=== PATIENT | female | born 1975 | race American Indian/Alaskan Native ===

== ENCOUNTER 2016-04-21 04:52 | Emergency (ER) | payer MEDICARE | END 2016-04-21 05:15 | disposition left against medical advice (07) | LOC: ED 04:52 → EEVIPCON 04:52 → ED 05:15 | DX: D57.00 Hb-SS disease with crisis, unspecified (principal); Z53.21 Procedure and treatment not carried out due to patient leaving prior to being seen by health care provider ==

== ENCOUNTER 2016-07-12 00:43 | Emergency (ER) | payer MEDICARE ==
[2016-07-12] MEDS ORDERED: D5NS 0.2% 1,000 ML IV SCH (02:00)
[2016-07-12 07:09] LABS: Hematocrit 27.3 % (30.3-42.9); Hemoglobin 8.9 gm/dl (10.1-14.3); Mean Corpuscular HGB Conc 33 % (30-34); Mean Corpuscular Hemoglobin 26 pg (28-32); Mean Corpuscular Volume 80 fl (79-97); Platelet Count 392 K/mm3 (140-440); Red Cell Distribution Width 16.8 % (13.2-15.2); Reticulocyte % 2.29 % (0.78-2.58); White Blood Count 11.8 K/mm3 (4.5-11.0)
[2016-07-12] MEDS ORDERED: DILAUDID IV ONE ×3 (07:34→09:09)
[2016-07-12] MEDS ORDERED: BENADRYL PO ONE (07:34)
[2016-07-12] MEDS ORDERED: ZOFRAN IV ONE (07:34)
[2016-07-12] MEDS ORDERED: TORADOL IV ONE (07:34)
--- NOTE | 2016-07-12 07:36 | Emergency Department Report ---
ED General Adult HPI - General Chief complaint: Sickle Cell Crisis Stated complaint: SICKLE CELL PAIN Time Seen by Provider: 07/12/16 07:25 Source: patient Mode of arrival: Ambulatory Limitations: No Limitations - History of Present Illness Initial comments: This is a 41-year-old female. I have evaluated her in the past. She has a past medical history of hypertension and sickle cell disease. She presents to the ER with her typical sickle cell pain. The pain is sharp, located in the bilateral lower back region, and bilateral hips. No fevers or chills. No chest pain or shortness of breath. No irritative or obstructive urinary symptoms. Patient reports that she is on her menstruation, and reports that her menstruation occasionally inside her sickle cell crisis. Her pain typically improves with hydromorphone. Initially rates her pain as a "10". -: Gradual Location: back, left, right, lower extremity Quality: stabbing, aching Consistency: constant Improves with: medication Worsens with: movement Associated Symptoms: denies: confusion, chest pain, cough, diaphoresis, fever/ chills, headaches, loss of appetite, malaise, nausea/vomiting, shortness of breath, syncope, weakness - Related Data Home Medications Medication Instructions Recorded Confirmed Last Taken Metoprolol [Lopressor TAB] 100 mg PO BID 01/16/13 07/12/16 1 Day Ago Lisinopril [Zestril TAB] 10 mg PO QDAY 09/12/15 07/12/16 1 Day Ago Folic Acid [Folvite] 1 mg PO QDAY 10/28/15 07/12/16 1 Day Ago Oxycodone HCl/Acetaminophen 1 each PO Q6HR PRN 10/28/15 07/12/16 1 Day Ago [Percocet 10/325 mg] Previous Rx's Medication Instructions Recorded Last Taken Type Ketorolac [Toradol] 10 mg PO Q6H PRN #20 tablet 07/12/16 Unknown Rx Ondansetron [Zofran Odt] 4 mg PO QID PRN #20 tab.rapdis 07/12/16 Unknown Rx Vit W-Ca,Fe,FA(<1 mg) 1 each PO QDAY #30 tablet 07/12/16 Unknown Rx [ Vitamins] Allergies Allergy/AdvReac Type Severity Reaction Status Date / Time hydralazine [Hydralazine] Allergy Unknown Verified 07/12/16 07:34 hydroxyurea Allergy Unknown Verified 07/12/16 07:34 morphine Allergy Shortness Verified 07/12/16 07:34 of Breath nalbuphine HCl [From Nubain] Allergy Unknown Verified 07/12/16 07:34 ED Review of Systems ROS: Stated complaint: SICKLE CELL PAIN Other details as noted in HPI Constitutional: denies: fever, malaise Eyes: denies: vision change ENT: denies: epistaxis Respiratory: denies: cough Cardiovascular: denies: chest pain Gastrointestinal: denies: vomiting Genitourinary: denies: dysuria Musculoskeletal: back pain, arthralgia, myalgia Skin: denies: lesions Neurological: denies: weakness Psychiatric: denies: anxiety ED Past Medical Hx - Past Medical History Previous Medical History?: Yes Hx Hypertension: Yes Hx CVA: No Hx Heart Attack/AMI: No Hx Congestive Heart Failure: No Hx Diabetes: No Hx Deep Vein Thrombosis: Yes Hx Pulmonary Embolism: No Hx GERD: No Hx Liver Disease: No Hx Renal Disease: No Hx Sickle Cell Disease: Yes Hx Arthritis: No Hx Headaches / Migraines: No Hx Seizures: No Hx Kidney Stones: No Hx Psychiatric Treatment: No Hx Asthma: No Hx COPD: No Hx Tuberculosis: Yes Hx Dementia: No Hx HIV: No - Surgical History Past Surgical History?: Yes Hx Coronary Stent: No Hx Open Heart Surgery: No Hx Pacemaker: No Hx Internal Defibrillator: No Hx Cholecystectomy: Yes Hx Appendectomy: No Hx Breast Surgery: No Additional Surgical History: csection x1,. port R chest - Social History Smoking Status: Never Smoker Substance Use Type: None - Medications Home Medications: Home Medications Medication Instructions Recorded Confirmed Last Taken Type Metoprolol [Lopressor TAB] 100 mg PO BID 01/16/13 07/12/16 1 Day Ago History Lisinopril [Zestril TAB] 10 mg PO QDAY 09/12/15 07/12/16 1 Day Ago History Folic Acid [Folvite] 1 mg PO QDAY 10/28/15 07/12/16 1 Day Ago History Oxycodone HCl/Acetaminophen 1 each PO Q6HR PRN 10/28/15 07/12/16 1 Day Ago History [Percocet 10/325 mg] Ketorolac [Toradol] 10 mg PO Q6H PRN #20 tablet 07/12/16 Unknown Rx Ondansetron [Zofran Odt] 4 mg PO QID PRN #20 tab.rapdis 07/12/16 Unknown Rx Vit W-Ca,Fe,FA(<1 mg) 1 each PO QDAY #30 tablet 07/12/16 Unknown Rx [ Vitamins] ED Physical Exam - General Limitations: No Limitations General appearance: alert, in distress - Head Head exam: Present: atraumatic, normocephalic - Eye Eye exam: Present: normal appearance, EOMI. Absent: nystagmus - ENT ENT exam: Present: normal exam, normal orophraynx, mucous membranes moist, normal external ear exam - Neck Neck exam: Present: normal inspection, full ROM. Absent: tenderness, meningismus - Respiratory Respiratory exam: Present: normal lung sounds bilaterally. Absent: respiratory distress, wheezes, rales, rhonchi, stridor, decreased breath sounds - Cardiovascular Cardiovascular Exam: Present: regular rate, normal rhythm, normal heart sounds. Absent: bradycardia, tachycardia, irregular rhythm, systolic murmur, diastolic murmur, rubs, gallop - GI/Abdominal GI/Abdominal exam: Present: soft, normal bowel sounds. Absent: distended, tenderness, guarding, rebound, rigid, pulsatile mass - Extremities Exam Extremities exam: Present: normal inspection, tenderness (is reproducible bilateral hip tenderness. There is no redness, pus, streaking, crepitus fluctuance or discharge. Anterior tibial tenderness is noted. Compartments are soft.), normal capillary refill. Absent: pedal edema, joint swelling, calf tenderness - Back Exam Back exam: Present: normal inspection, other (there is a right-sided thoracic wall port noted, with no redness, pus, streaking.) - Neurological Exam Neurological exam: Present: alert, oriented X3, normal gait, other (Extraocular movements intact. Tongue midline. No facial droop. Facial sensation intact to light touch in the V1, V2, V3 distribution bilaterally. 5 and 5 strength in 4 extremities.. Sensation is intact to light touch in 4 extremities.). Absent : motor sensory deficit - Psychiatric Psychiatric exam: Present: normal affect, normal mood - Skin Skin exam: Present: warm, dry, intact, normal color. Absent: rash ED Course Vital Signs 07/12/16 07/12/16 07/12/16 01:06 07:50 07:56 Temperature 98.3 F Pulse Rate 74 73 73 Respiratory 19 16 Rate Blood Pressure 176/135 Blood Pressure 189/113 [Left] O2 Sat by Pulse 100 100 Oximetry 07/12/16 07/12/16 08:30 10:26 Temperature 98 F Pulse Rate 76 76 Respiratory 16 16 Rate Blood Pressure Blood Pressure 181/118 152/91 [Left] O2 Sat by Pulse 99 100 Oximetry - Reevaluation(s) Reevaluation #1: 07/12/16 10:00 Differential diagnosis: Sickle cell disease, sickle cell crisis Assessment and plan: 41-year-old female with typical sickle cell crisis. Has chronic hypertension. Her pain is treated aggressively with hydromorphone. She feels improved. Laboratory studies unremarkable, do not warrant necessity for admission at this time. 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 Elevated blood pressure is appreciated, this is chronic. The patient is instructed to follow-up with her outpatient primary care doctor for this. ED Medical Decision Making - Lab Data Result diagrams: 07/12/16 06:41 Vital Signs 07/12/16 07/12/16 07/12/16 01:06 07:50 07:56 Temperature 98.3 F Pulse Rate 74 73 73 Respiratory 19 16 Rate Blood Pressure 176/135 Blood Pressure 189/113 [Left] O2 Sat by Pulse 100 100 Oximetry 07/12/16 08:30 Temperature Pulse Rate 76 Respiratory 16 Rate Blood Pressure Blood Pressure 181/118 [Left] O2 Sat by Pulse 99 Oximetry Lab Results 07/12/16 Range/Units 06:41 WBC 11.8 H (4.5-11.0) K/mm3 RBC 3.40 L (3.65-5.03) M/mm3 Hgb 8.9 L (10.1-14.3) gm/dl Hct 27.3 L (30.3-42.9) % MCV 80 (79-97) fl MCH 26 L (28-32) pg MCHC 33 (30-34) % RDW 16.8 H (13.2-15.2) % Plt Count 392 (140-440) K/mm3 Add Manual Diff Complete Total Counted 100 Seg Neuts % (Manual) 69.0 (40.0-70.0) % Band Neutrophils % 1.0 % Lymphocytes % (Manual) 21.0 (13.4-35.0) % Reactive Lymphs % (Man) 0 % Monocytes % (Manual) 9.0 H (0.0-7.3) % Basophils % (Manual) 0 (0.0-1.8) % Metamyelocytes % 0 % Myelocytes % 0 % Promyelocytes % 0 % Blast Cells % 0 % Nucleated RBC % Not Reportable Seg Neutrophils # Man 8.1 H (1.8-7.7) K/mm3 Band Neutrophils # 0.1 K/mm3 Lymphocytes # (Manual) 2.5 (1.2-5.4) K/mm3 Abs React Lymphs (Man) 0.0 K/mm3 Monocytes # (Manual) 1.1 H (0.0-0.8) K/mm3 Eosinophils # (Manual) 0.0 (0.0-0.4) K/mm3 Basophils # (Manual) 0.0 (0.0-0.1) K/mm3 Metamyelocytes # 0.0 K/mm3 Myelocytes # 0.0 K/mm3 Promyelocytes # 0.0 K/mm3 Blast Cells # 0.0 K/mm3 WBC Morphology Not Reportable Hypersegmented Neuts Not Reportable Hyposegmented Neuts Not Reportable Hypogranular Neuts Not Reportable Smudge Cells Not Reportable Toxic Granulation Not Reportable Toxic Vacuolation Not Reportable Dohle Bodies Not Reportable Pelger-Huet Anomaly Not Reportable Pili Rods Not Reportable Platelet Estimate Appears normal Clumped Platelets Not Reportable Plt Clumps, EDTA Not Reportable Large Platelets Not Reportable Giant Platelets 1+ Platelet Satelliting Not Reportable Plt Morphology Comment Not Reportable RBC Morphology Not Reportable Dimorphic RBCs Not Reportable Polychromasia Not Reportable Hypochromasia 2+ Poikilocytosis 1+ Anisocytosis 1+ Microcytosis 1+ Macrocytosis Not Reportable Spherocytes Not Reportable Pappenheimer Bodies Not Reportable Sickle Cells Rare Target Cells 1+ Tear Drop Cells Not Reportable Ovalocytes Not Reportable Helmet Cells Not Reportable [place] Bodies Not Reportable [place] Rings Not Reportable [place] Cells Not Reportable Bite Cells Not Reportable Crenated Cell Not Reportable Elliptocytes Not Reportable Acanthocytes (Spur) Not Reportable Rouleaux Not Reportable Hemoglobin C Crystals Not Reportable Schistocytes Rare Malaria parasites Not Reportable Percent Retic 2.29 (0.78-2.58) % Aron Bodies Not Reportable Hem Pathologist Commnt No Critical care attestation.: If time is entered above; I have spent that time in minutes in the direct care of this critically ill patient, excluding procedure time. ED Disposition Clinical Impression: Sickle cell pain crisis, Hypertension Disposition: DISCHARGED TO HOME OR SELFCARE Is pt being admited?: No Does the pt Need Aspirin: No Condition: Good Instructions: Hypertension (ED) Additional Instructions: Take the pain medication, nausea medication as directed. Follow up with a primary care doctor within the next 7-10 days. Please note that blood pressure was elevated. This should be followed up by a primary care doctor within the recommended timeframe. Long-term complications of hypertension/elevated blood pressure include stroke, heart attack, disability, , paralysis, permanent loss of quality of life. Return to the ER right away with new pain, worsened pain, migration of pain, fevers or chills, intractable nausea or vomiting, inability to tolerate liquid feeds. Prescriptions: Ketorolac [Toradol] 10 mg PO Q6H PRN #20 tablet PRN Reason: Pain Ondansetron [Zofran Odt] 4 mg PO QID PRN #20 tab.rapdis PRN Reason: Nausea Vit W-Ca,Fe,FA(<1 mg) [ Vitamins] 1 each PO QDAY #30 tablet Referrals: PRIMARY MD MORIAH [Primary Care Provider] - 3-5 Days BECKY HANLEY MD [Staff Physician] - 3-5 Days
[2016-07-12 08:11] LABS: Basophils % (Manual) 0 % (0.0-1.8); Blastocytes % (Manual) 0 %
[2016-07-12 08:12] LABS: Anisocytosis 1+; Hypochromasia 2+; Schistocytes Rare; Sickle Cells Rare; Target Cells 1+
[2016-07-12 08:13] LABS: Microcytosis 1+; Poikilocytosis 1+
[2016-07-12 08:14] LABS: Giant Platelets 1+
[2016-07-12 08:15] LABS: Diff Status Complete
[2016-07-12] MEDS ORDERED: FLUSH HEPARIN IV ONE ×2 (10:12→10:17)
[2016-07-12 10:28] VITALS: BP 152/91
== END 2016-07-12 10:30 | disposition home or self-care (01) ==
LOC: ED 00:43
DX: D57.00 Hb-SS disease with crisis, unspecified (principal); I10 Essential (primary) hypertension; Z88.5 Allergy status to narcotic agent; Z88.8 Allergy status to other drugs, medicaments and biological substances; Z86.718 Personal history of other venous thrombosis and embolism
CPT/HCPCS: 36415; 85007; 85025; 85045; 96361; 96374; 96375; 96376; 99283; J1170; J1642; J1885; J2405

== ENCOUNTER 2016-08-03 07:03 | Emergency (ER) | payer MEDICARE ==
[2016-08-03] MEDS ORDERED: BENADRYL IV ONE ×2 (08:35→10:49)
[2016-08-03] MEDS ORDERED: ZOFRAN IV ONE (08:35)
[2016-08-03] MEDS ORDERED: SUBLIMAZE IV ONE ×2 (08:36→09:30)
[2016-08-03] MEDS ORDERED: D5NS 0.2% 1,000 ML IV SCH (09:00)
[2016-08-03] MEDS ORDERED: DILAUDID IV ONE ×2 (09:21→10:48)
[2016-08-03] MEDS ORDERED: FLUSH HEPARIN IV ONE (11:40)
[2016-08-03 11:56] VITALS: BP 165/92
--- NOTE | 2016-08-03 12:04 | Emergency Department Report ---
HPI - General Chief Complaint: Sickle Cell Crisis Time Seen by Provider: 08/03/16 08:37 - HPI HPI: The patient is a 41-year-old female presents for evaluation of recurrence of sickle cell pain. The patient reports constant low back pain since yesterday at noon, nearly 24 hours ago, 7/10 in severity, exacerbated with movement of the lower back, aching in quality. The patient states that her pain is consistent with previous sickle cell pain attacks. The patient denies blunt trauma to the back, fall, fever, chills, night sweats, saddle anesthesia, paresthesias, numbness or tingling in the legs, leg weakness, urine or bowel incontinence or retention, difficulty ambulating, or other focal neurological deficits. The patient also denies redness or swelling to the back, IV drug use, history of cancer. ED Past Medical Hx - Past Medical History Previous Medical History?: Yes Hx Hypertension: Yes Hx CVA: No Hx Heart Attack/AMI: No Hx Congestive Heart Failure: No Hx Diabetes: No Hx Deep Vein Thrombosis: Yes Hx Pulmonary Embolism: No Hx GERD: No Hx Liver Disease: No Hx Renal Disease: No Hx Sickle Cell Disease: Yes Hx Arthritis: No Hx Headaches / Migraines: No Hx Seizures: No Hx Kidney Stones: No Hx Psychiatric Treatment: No Hx Asthma: No Hx COPD: No Hx Tuberculosis: Yes Hx Dementia: No Hx HIV: No - Surgical History Past Surgical History?: Yes Hx Coronary Stent: No Hx Open Heart Surgery: No Hx Pacemaker: No Hx Internal Defibrillator: No Hx Cholecystectomy: Yes Hx Appendectomy: No Hx Breast Surgery: No Additional Surgical History: csection x1,. port R chest - Social History Smoking Status: Never Smoker Substance Use Type: Prescribed - Medications Home Medications: Home Medications Medication Instructions Recorded Confirmed Last Taken Type Metoprolol [Lopressor TAB] 100 mg PO BID 01/16/13 07/12/16 1 Day Ago History Lisinopril [Zestril TAB] 10 mg PO QDAY 09/12/15 07/12/16 1 Day Ago History Folic Acid [Folvite] 1 mg PO QDAY 10/28/15 07/12/16 1 Day Ago History Oxycodone HCl/Acetaminophen 1 each PO Q6HR PRN 10/28/15 07/12/16 1 Day Ago History [Percocet 10/325 mg] Ketorolac [Toradol] 10 mg PO Q6H PRN #20 tablet 07/12/16 Unknown Rx Ondansetron [Zofran Odt] 4 mg PO QID PRN #20 tab.rapdis 07/12/16 Unknown Rx Vit W-Ca,Fe,FA(<1 mg) 1 each PO QDAY #30 tablet 07/12/16 Unknown Rx [ Vitamins] ED Review of Systems ROS: Stated complaint: SICKLE CELL PAIN Other details as noted in HPI Constitutional: denies: fever ENT: denies: throat or neck pain Respiratory: denies: cough, shortness of breath Cardiovascular: denies: chest pain Endocrine: denies unexplained weight loss or gain Gastrointestinal: denies: abdominal pain, nausea Genitourinary: denies: dysuria Musculoskeletal: reports back pain denies: leg swelling Skin: denies: rash Neurological: denies: headache Hematological/Lymphatic: denies: easy bleeding or easy bruising Psych: denies sadness or hopelessness Physical Exam - Physical Exam Vital Signs: Vital Signs 08/03/16 08/03/16 08/03/16 07:10 10:00 10:30 Temperature 98.5 F Pulse Rate 83 85 Respiratory 20 16 Rate Blood Pressure 159/121 Blood Pressure 171/117 155/103 [Left] O2 Sat by Pulse 99 96 Oximetry Physical Exam: General: well-nourished, well-developed, no acute distress Head: Normocephalic, atraumatic Eyes: normal sclera ENT: Mucous membranes are pale and dry Neck: trachea midline, neck supple, No neck stiffness, no cervical adenopathy Respiratory: Breath sounds equal bilaterally, no wheezing, rales, or rhonchi Cardio: S1 and S2 present, no murmurs, rubs, gallops, capillary refill is delayed Abdomen: Normoactive bowel sounds, soft abdomen, no rigidity, no guarding or rebound tenderness Musc: Tenderness to palpation present to bilateral lumbar paraspinal musculature , no midline pain, pain is elicited with flexion at the hip, normal active range of motion at the hip intact, no spinous step-off or obvious deformity, ipsi-lateral and contralateral straight leg raise tests are negative. On extremity testing, compartments are soft and pliable, no obvious gross motor strength deficit, 5+ motor strength, including extension of the great toe bilaterally, no muscular atrophy, spasticity, fasciculations, or clonus, no obvious gross sensation deficit including web space between 1st and 2nd toes, reflexes 2+ & symmetric on DTR testing at the knee and ankle joints, distal pulses intact. Skin: No rash Neuro: no facial drooping, normal speech Psych: Normal affect ED Course Vital Signs 08/03/16 08/03/16 08/03/16 07:10 10:00 10:30 Temperature 98.5 F Pulse Rate 83 85 Respiratory 20 16 Rate Blood Pressure 159/121 Blood Pressure 171/117 155/103 [Left] O2 Sat by Pulse 99 96 Oximetry ED Medical Decision Making - Medical Decision Making The patient was seen and examined by myself. The patient is placed on a cardiac cath tech and continuous pulse ox. On initial evaluation, the patient was found to be in no distress. No findings on exam concerning for cauda equina syndrome, spinal stenosis, epidural abscess, or other emergent etiology of back pain. As the patient has no midline tenderness on exam, no neuro deficits, and no findings concerning for emergent etiology of their back pain, imaging will not be obtained at this time. IV access is established and the patient is given fluid resuscitation, Zofran, and multiple doses of IV fentanyl and dilaudid for their pain. Lab results reveal elevated reticulocyte count, and a stable hemoglobin level at patient baseline. Lab results otherwise are not concerning. The patient was reevaluated and reported that their pain was significantly improved. The patient is stable for discharge with outpatient follow-up. The patient is given follow-up and return instructions. The patient expressed understanding and agreed with the plan. The patient is discharged in stable condition. Critical care attestation.: If time is entered above; I have spent that time in minutes in the direct care of this critically ill patient, excluding procedure time. ED Disposition Clinical Impression: Sickle cell pain crisis, Dehydration, Acute bilateral low back pain without sciatica Disposition: DISCHARGED TO HOME OR SELFCARE Is pt being admited?: No Does the pt Need Aspirin: No Condition: Stable Instructions: Sickle Cell Crisis (ED) Referrals: PRIMARY CARE [Primary Care Provider] - 3-5 Days Time of Disposition: 11:47
== END 2016-08-03 11:56 | disposition home or self-care (01) ==
LOC: ED 07:03
DX: D57.00 Hb-SS disease with crisis, unspecified (principal); E86.0 Dehydration; M54.5 Low back pain; I10 Essential (primary) hypertension; A15.9 Respiratory tuberculosis unspecified; Z86.718 Personal history of other venous thrombosis and embolism; Z90.49 Acquired absence of other specified parts of digestive tract
CPT/HCPCS: 96361; 96374; 96375; 96376; 99283; J1170; J1200; J1642; J2405; J3010

== ENCOUNTER 2016-08-09 03:30 | Emergency (ER) | payer MEDICARE ==
[2016-08-09 03:40] VITALS: BP 161/118
[2016-08-09] MEDS ORDERED: D5NS 0.2% 1,000 ML IV SCH (04:00)
== END 2016-08-09 08:45 | disposition left against medical advice (07) ==
LOC: ED 03:30
DX: M54.9 Dorsalgia, unspecified (principal); M79.604 Pain in right leg; M79.605 Pain in left leg; Z53.21 Procedure and treatment not carried out due to patient leaving prior to being seen by health care provider

== ENCOUNTER 2016-08-30 09:54 | Emergency (ER) | payer MEDICARE ==
[2016-08-30] MEDS ORDERED: DILAUDID IV ONE ×3 (11:14→14:27)
[2016-08-30] MEDS ORDERED: ZOFRAN IV ONE (11:14)
[2016-08-30] MEDS ORDERED: BENADRYL IV ONE (11:15)
--- NOTE | 2016-08-30 11:20 | Emergency Department Report ---
HPI - General Chief Complaint: Sickle Cell Crisis Time Seen by Provider: 08/30/16 11:07 - HPI HPI: Room 17 The patient is a 41-year-old female presenting with a chief complaint of sickle cell pain crisis. The patient states yesterday she developed pain in both legs and her back consistent with a sickle cell pain. Patient states this morning she developed a burning pain in her right flank. Patient denies dysuria. Patient states she is currently on her cycle (normal time) so she is uncertain if she has developed hematuria. The patient gives her pain a score of 8/10 Location: [see above] Duration: [see above] Quality: Sickle cell pain, burning Severity: 8/10 Modifying factors: [see above] Context: [see above] Mode of transportation: [not driving] ED Past Medical Hx - Past Medical History Hx Hypertension: Yes Hx Deep Vein Thrombosis: Yes Hx Sickle Cell Disease: Yes Hx Tuberculosis: Yes - Surgical History Hx Cholecystectomy: Yes Additional Surgical History: csection x1,. port R chest - Family History Family history: no significant - Social History Smoking Status: Never Smoker Substance Use Type: Alcohol (occasional), Prescribed - Medications Home Medications: Home Medications Medication Instructions Recorded Confirmed Last Taken Type Metoprolol [Lopressor TAB] 100 mg PO BID 01/16/13 07/12/16 1 Day Ago History Lisinopril [Zestril TAB] 10 mg PO QDAY 09/12/15 07/12/16 1 Day Ago History Folic Acid [Folvite] 1 mg PO QDAY 10/28/15 07/12/16 1 Day Ago History Oxycodone HCl/Acetaminophen 1 each PO Q6HR PRN 10/28/15 07/12/16 1 Day Ago History [Percocet 10/325 mg] Ketorolac [Toradol] 10 mg PO Q6H PRN #20 tablet 07/12/16 Unknown Rx Ondansetron [Zofran Odt] 4 mg PO QID PRN #20 tab.rapdis 07/12/16 Unknown Rx Vit W-Ca,Fe,FA(<1 mg) 1 each PO QDAY #30 tablet 07/12/16 Unknown Rx [ Vitamins] HYDROcodone/APAP 5-325 [[place] 1 each PO Q6HR PRN #5 tablet 08/30/16 Unknown Rx 5/325] ED Review of Systems ROS: Stated complaint: SICKLE CELL PAIN Other details as noted in HPI Comment: All other systems reviewed and negative Constitutional: denies: chills, fever Eyes: denies: eye pain, eye discharge, vision change ENT: denies: ear pain, throat pain Respiratory: denies: cough, shortness of breath, wheezing Cardiovascular: denies: chest pain, palpitations Endocrine: no symptoms reported Gastrointestinal: denies: abdominal pain, nausea, diarrhea Genitourinary: denies: urgency, dysuria, discharge Musculoskeletal: back pain Skin: denies: rash, lesions Neurological: denies: headache, weakness, paresthesias Psychiatric: denies: anxiety, depression Hematological/Lymphatic: other (sickle cell pain crisis) Physical Exam - Physical Exam Vital Signs: Vital Signs 08/30/16 10:17 Temperature 98.3 F Pulse Rate 68 Respiratory 17 Rate Blood Pressure 155/92 O2 Sat by Pulse 100 Oximetry Physical Exam: GENERAL: The patient is well-developed well-nourished female sitting on stretcher not appearing to be in acute distress. [] HEENT: Normocephalic. Atraumatic. Extraocular motions are intact. Patient has moist mucous membranes. NECK: Supple. Trachea midline CHEST/LUNGS: Clear to auscultation. There is no respiratory distress noted. HEART/CARDIOVASCULAR: Regular. There is no tachycardia. There is no gallop rub or murmur. ABDOMEN: Abdomen is soft, nontender. Patient has normal bowel sounds. There is no abdominal distention. SKIN: There is no rash. There is no edema. There is no diaphoresis. NEURO: The patient is awake, alert, and oriented. The patient is cooperative. The patient has normal speech MUSCULOSKELETAL: There is no evidence of acute injury. ED Course Vital Signs 08/30/16 10:17 Temperature 98.3 F Pulse Rate 68 Respiratory 17 Rate Blood Pressure 155/92 O2 Sat by Pulse 100 Oximetry ED Medical Decision Making - Lab Data Result diagrams: 08/30/16 12:05 Laboratory Tests 08/30/16 08/30/16 12:05 12:58 WBC 8.3 RBC 3.79 Hgb 8.9 L Hct 27.6 L MCV 73 L MCH 24 L MCHC 32 RDW 18.9 H Plt Count 403 Lymph % (Auto) 35.9 H [place] % (Auto) 6.2 Eos % (Auto) 3.8 Baso % (Auto) 0.9 Lymph # 3.0 [place] # 0.5 Eos # 0.3 Baso # 0.1 Seg Neutrophils % 53.2 Seg Neutrophils # 4.4 Percent Retic 2.11 Urine Color Straw Urine Turbidity Clear Urine pH 7.0 Ur Specific [place] 1.010 Urine Protein <15 mg/dl Urine Glucose (UA) Neg Urine Ketones Neg Urine Blood Neg Urine Nitrite Neg Ur Reducing Substances Not Reportable Urine Bilirubin Neg Urine Ictotest Not Reportable Urine Urobilinogen < 2.0 Ur Leukocyte Esterase Neg Urine WBC (Auto) 1.0 Urine RBC (Auto) 1.0 U Epithel Cells (Auto) 2.0 Urine HCG, Qual Negative - Radiology Data Radiology results: report reviewed (CT abdomen and pelvis), image reviewed (CT abdomen and pelvis) CT abdomen and pelvis (read by radiologist)-possible right ovary with ovarian cysts. Probable left renal cyst cortical cyst. - Differential Diagnosis sickle cell pain crisis, zoster, pyelonephritis, Critical care attestation.: If time is entered above; I have spent that time in minutes in the direct care of this critically ill patient, excluding procedure time. ED Disposition Clinical Impression: Sickle cell pain crisis, Right flank pain Disposition: DISCHARGED TO HOME OR SELFCARE Is pt being admited?: No Does the pt Need Aspirin: No Condition: Stable Instructions: Sickle Cell Crisis (ED) Additional Instructions: Return to the emergency department immediately should you develop worsening symptoms, fever, inability to tolerate food or liquid or any other concerns. Prescriptions: HYDROcodone/APAP 5-325 [[place] 5/325] 1 each PO Q6HR PRN #5 tablet PRN Reason: Pain Referrals: PRIMARY CARE, [Primary Care Provider] - 3-5 Days Time of Disposition: 14:29
[2016-08-30 12:11] LABS: Basophils % (Auto) 0.9 % (0.0-1.8); Eosinophils % (Auto) 3.8 % (0.0-4.3); Hematocrit 27.6 % (30.3-42.9); Hemoglobin 8.9 gm/dl (10.1-14.3); Mean Corpuscular HGB Conc 32 % (30-34); Mean Corpuscular Volume 73 fl (79-97); Platelet Count 403 K/mm3 (140-440); Red Blood Count 3.79 M/mm3 (3.65-5.03); Red Cell Distribution Width 18.9 % (13.2-15.2); Reticulocyte % 2.11 % (0.78-2.58); White Blood Count 8.3 K/mm3 (4.5-11.0)
[2016-08-30 12:31] LABS: Mean Corpuscular Hemoglobin 24 pg (28-32)
[2016-08-30 13:10] LABS: Bilirubin,Urine NEG (Negative); Blood,Urine NEG (Negative); Ketones,Urine NEG (Negative); Leukocyte Esterase,Urine NEG (Negative); Nitrite,Urine NEG (Negative); Protein,Urine <15 mg/dL mg/dL (Negative); Urobilinogen,Urine < 2.0 mg/dL (<2.0)
[2016-08-30] MEDS ORDERED: FLUSH HEPARIN IV ONE (14:23)
--- NOTE | 2016-08-30 14:23 | Cat Scan Report ---
FINAL REPORT EXAM: CT ABDOMEN PELVIS WO CON HISTORY: right flank pain TECHNIQUE: CT of the abdomen and pelvis without IV contrast. Coronal and sagittal reconstructed imaging provided. PRIORS: None currently available. FINDINGS: ABDOMEN: Mild linear scarring or discoid subsegmental atelectasis in both lung bases. Prior cholecystectomy. Low-attenuation lesion in the cortex of the mid to inferior left kidney measures 1.4 cm. Kidneys do not demonstrate any hydronephrosis. No nephroureteral stones. Irregular contoured spleen with areas of calcification may be related to prior trauma or infection. No distinct lesions noted. Stomach, pancreas, and adrenals are unremarkable. IVC is intact. No abdominal aortic aneurysm. No periaortic or retroperitoneal mass or adenopathy. [id number] stool is present within the colon. No wall thickening or inflammatory changes. Appendix is not clearly visualized. There are no pericecal inflammatory changes. Terminal ilium is unremarkable. Small bowel loops are unremarkable. No obstructive pattern. No free air or free fluid. Fat containing umbilical hernia without strangulation. PELVIS: Bladder is unremarkable. Oval low-attenuation lesion in the right pelvis on series 3:126 measures 2.1 x 1.3 cm and may represent a right ovary with ovarian cyst. Surgical clips also noted in the right pelvis. There is no pelvic mass or adenopathy. Inguinal regions are unremarkable. Bones: No suspicious osseous lesions on this limited examination of the skeleton. Metastatic disease better evaluated with bone scan. Degenerative changes are in the spine. IMPRESSION: Possible right ovary with ovarian cysts. Correlation with pelvic ultrasound may be helpful if clinically indicated. Probable left renal cysts cortical cyst. Irregular contour and calcifications of the spleen may be related to chronic trauma or prior infection.
[2016-08-30 15:22] VITALS: BP 145/71
== END 2016-08-30 15:15 | disposition home or self-care (01) ==
LOC: ED 09:54
DX: D57.00 Hb-SS disease with crisis, unspecified (principal); R10.9 Unspecified abdominal pain; I10 Essential (primary) hypertension; I82.409 Acute embolism and thrombosis of unspecified deep veins of unspecified lower extremity; Z86.11 Personal history of tuberculosis; Z88.8 Allergy status to other drugs, medicaments and biological substances
CPT/HCPCS: 36415; 74176; 81001; 81025; 85025; 85045; 96374; 96375; 96376; 99284; J1170; J1200; J1642; J2405

== ENCOUNTER 2016-10-03 21:34 | Emergency (ER) | payer MEDICARE ==
[2016-10-03] MEDS ORDERED: D5NS 0.2% 1,000 ML IV SCH (22:00)
[2016-10-03] MEDS ORDERED: DILAUDID IM ONE (23:10)
[2016-10-03] MEDS ORDERED: ZOFRAN ODT PO ONE (23:10)
[2016-10-03] MEDS ORDERED: BENADRYL PO ONE (23:30)
[2016-10-04] MEDS ORDERED: DILAUDID IM ONE (01:05)
--- NOTE | 2016-10-04 01:12 | Emergency Department Report ---
ED General Adult HPI - General Chief complaint: Sickle Cell Crisis Stated complaint: SICKLE CELL PAIN Time Seen by Provider: 10/03/16 23:09 Source: patient Mode of arrival: Ambulatory Limitations: No Limitations - History of Present Illness Initial comments: 41-year-old female with past medical history of sickle cell presenting to the emergency department complaining of sickle cell crisis. Patient states her pain is in bilateral upper extremity joints near her shoulders. Patient denies fevers/chills, headache, chest pain, shortness of breath, cough, vomiting, nausea/vomiting/diarrhea. She states today's pain is consistent with previous sickle cell crises. Severity scale (0 -10): 8 - Related Data Home Medications Medication Instructions Recorded Confirmed Last Taken RX: Metoprolol [Lopressor TAB] 100 mg PO BID 01/16/13 07/12/16 1 Day Ago Lisinopril [Zestril TAB] 10 mg PO QDAY 09/12/15 07/12/16 1 Day Ago Oxycodone HCl/Acetaminophen 1 each PO Q6HR PRN 10/28/15 07/12/16 1 Day Ago [Percocet 10/325 mg] RX: Folic Acid [Folvite] 1 mg PO QDAY 10/28/15 07/12/16 1 Day Ago Previous Rx's Medication Instructions Recorded Last Taken Type Ketorolac [Toradol] 10 mg PO Q6H PRN #20 tablet 07/12/16 Unknown Rx Ondansetron [Zofran Odt] 4 mg PO QID PRN #20 tab.rapdis 07/12/16 Unknown Rx Vit W-Ca,Fe,FA(<1 mg) 1 each PO QDAY #30 tablet 07/12/16 Unknown Rx [ Vitamins] HYDROcodone/APAP 5-325 [[place] 1 each PO Q6HR PRN #5 tablet 08/30/16 Unknown Rx 5/325] Allergies Allergy/AdvReac Type Severity Reaction Status Date / Time hydralazine [Hydralazine] Allergy Unknown Verified 08/30/16 10:15 hydroxyurea Allergy Unknown Verified 08/30/16 10:15 morphine Allergy Shortness Verified 08/30/16 10:15 of Breath nalbuphine HCl [From Nubain] Allergy Unknown Verified 08/30/16 10:15 sulfamethoxazole Allergy Unknown Verified 10/03/16 21:44 [From Bactrim] trimethoprim [From Bactrim] Allergy Unknown Verified 10/03/16 21:44 ED Review of Systems ROS: Stated complaint: SICKLE CELL PAIN Other details as noted in HPI Constitutional: denies: chills, fever Eyes: denies: eye pain, eye discharge, vision change ENT: denies: ear pain, throat pain Respiratory: denies: cough, shortness of breath, wheezing Cardiovascular: denies: chest pain, palpitations Endocrine: no symptoms reported Gastrointestinal: denies: abdominal pain, nausea, diarrhea Genitourinary: denies: urgency, dysuria, discharge Musculoskeletal: denies: back pain, joint swelling, arthralgia Skin: denies: rash, lesions Neurological: denies: headache, weakness, paresthesias Psychiatric: denies: anxiety, depression Hematological/Lymphatic: denies: easy bleeding, easy bruising ED Past Medical Hx - Past Medical History Hx Hypertension: Yes Hx Deep Vein Thrombosis: Yes Hx Sickle Cell Disease: Yes Hx Tuberculosis: Yes - Surgical History Hx Cholecystectomy: Yes Additional Surgical History: csection x1,. port R chest - Social History Smoking Status: Never Smoker Substance Use Type: None - Medications Home Medications: Home Medications Medication Instructions Recorded Confirmed Last Taken Type RX: Metoprolol [Lopressor TAB] 100 mg PO BID 01/16/13 07/12/16 1 Day Ago History Lisinopril [Zestril TAB] 10 mg PO QDAY 09/12/15 07/12/16 1 Day Ago History Oxycodone HCl/Acetaminophen 1 each PO Q6HR PRN 10/28/15 07/12/16 1 Day Ago History [Percocet 10/325 mg] RX: Folic Acid [Folvite] 1 mg PO QDAY 10/28/15 07/12/16 1 Day Ago History Ketorolac [Toradol] 10 mg PO Q6H PRN #20 tablet 07/12/16 Unknown Rx Ondansetron [Zofran Odt] 4 mg PO QID PRN #20 tab.rapdis 07/12/16 Unknown Rx Vit W-Ca,Fe,FA(<1 mg) 1 each PO QDAY #30 tablet 07/12/16 Unknown Rx [ Vitamins] HYDROcodone/APAP 5-325 [[place] 1 each PO Q6HR PRN #5 tablet 08/30/16 Unknown Rx 5/325] ED Physical Exam - General Limitations: No Limitations General appearance: alert, in no apparent distress - Head Head exam: Present: atraumatic, normocephalic - Eye Eye exam: Present: normal appearance - ENT ENT exam: Present: mucous membranes moist - Neck Neck exam: Present: normal inspection - Respiratory Respiratory exam: Present: normal lung sounds bilaterally. Absent: respiratory distress - Cardiovascular Cardiovascular Exam: Present: regular rate, normal rhythm. Absent: systolic murmur, diastolic murmur, rubs, gallop - GI/Abdominal GI/Abdominal exam: Present: soft, normal bowel sounds - Extremities Exam Extremities exam: Present: normal inspection, full ROM, normal capillary refill. Absent: tenderness, pedal edema, joint swelling, calf tenderness (2+ radial pulses BL, normal cap refill ) - Back Exam Back exam: Present: normal inspection - Neurological Exam Neurological exam: Present: alert, oriented X3 - Psychiatric Psychiatric exam: Present: normal affect, normal mood - Skin Skin exam: Present: warm, dry, intact, normal color. Absent: rash ED Course Vital Signs 10/03/16 10/03/16 10/03/16 21:37 23:06 23:10 Temperature 98.4 F Pulse Rate 78 Respiratory 18 Rate Blood Pressure 183/115 166/100 Blood Pressure [Left] O2 Sat by Pulse 100 100 100 Oximetry 10/03/16 10/03/16 10/03/16 23:28 23:30 23:58 Temperature 98.7 F Pulse Rate 65 Respiratory 20 20 18 Rate Blood Pressure 187/103 Blood Pressure 166/100 [Left] O2 Sat by Pulse 100 Oximetry 10/04/16 10/04/16 10/04/16 00:00 00:20 00:40 Temperature Pulse Rate Respiratory Rate Blood Pressure 176/105 170/90 170/90 Blood Pressure [Left] O2 Sat by Pulse 94 95 Oximetry 10/04/16 10/04/16 10/04/16 00:51 01:04 01:20 Temperature Pulse Rate Respiratory 18 Rate Blood Pressure 170/90 170/90 Blood Pressure [Left] O2 Sat by Pulse 90 Oximetry 10/04/16 01:38 Temperature Pulse Rate Respiratory 20 Rate Blood Pressure Blood Pressure [Left] O2 Sat by Pulse Oximetry - Reevaluation(s) Reevaluation #1: 10/04/16 01:13 Patient states her pain is improved the nurse attempting to assess report however patient is refusing stating she wants to withhold lab draw for today discharge home now and follow-up with her national service officer. ED Medical Decision Making - Medical Decision Making 41-year-old female with past medical history sickle cell presented to the emergency department with sickle cell crisis. She is currently refusing blood draws requesting discharge home after 2 doses of Dilaudid. Given that her vitals are stable and she does not appear to be in acute distress, I will discharge patient now. Patient verbalized understanding of return precautions. I have low suspicion for: Acute chest, ACS, DVT. Critical Care Time: No Critical care attestation.: If time is entered above; I have spent that time in minutes in the direct care of this critically ill patient, excluding procedure time. ED Disposition Clinical Impression: Sickle cell pain crisis Disposition: DC-01 TO HOME OR SELFCARE Is pt being admited?: No Does the pt Need Aspirin: No Condition: Stable Instructions: Sickle Cell Crisis (ED) Referrals: PRIMARY CARE [Primary Care Provider] - 3-5 Days Time of Disposition: 01:15
[2016-10-04 01:36] VITALS: BP 170/90
== END 2016-10-04 01:38 | disposition home or self-care (01) ==
LOC: ED 21:34
DX: D57.00 Hb-SS disease with crisis, unspecified (principal); I10 Essential (primary) hypertension; Z86.718 Personal history of other venous thrombosis and embolism; Z88.8 Allergy status to other drugs, medicaments and biological substances; Z88.5 Allergy status to narcotic agent; Z88.2 Allergy status to sulfonamides
CPT/HCPCS: 96372; 99283; J1170; Q0162

== ENCOUNTER 2016-10-11 15:41 | Emergency (ER) | payer MEDICARE ==
[2016-10-11] MEDS ORDERED: D5NS 0.2% 1,000 ML IV SCH (17:00)
[2016-10-11] MEDS ORDERED: TORADOL IM ONE (17:36)
[2016-10-11] MEDS ORDERED: DILAUDID IM ONE (17:36)
--- NOTE | 2016-10-11 17:39 | Emergency Department Report ---
ED Extremity Problem HPI - General Chief complaint: Sickle Cell Crisis Stated complaint: SICKLE CELL PAIN Time Seen by Provider: 10/11/16 17:12 Source: patient Mode of arrival: Ambulatory Limitations: No Limitations - History of Present Illness Initial comments: 41-year-old female well-known to me here with complaint of sickle cell pain crisis. She complains of pain in her lower back and bilateral legs. Denies fevers chills or chest pain. Describes the pain as achy. States she is taking her 10 mg of Percocet a day without relief. MD Complaint: extremity pain Location: bilateral lower extremity -: Yes myalgia, Yes arthralgia, No fever, No associated dyspnea, No associated chest pain Associated Symptoms: denies other symptoms - Related Data Home Medications Medication Instructions Recorded Confirmed Last Taken Metoprolol [Lopressor TAB] 100 mg PO BID 01/16/13 10/11/16 10/11/16 Lisinopril [Zestril TAB] 10 mg PO QDAY 09/12/15 10/11/16 10/11/16 Folic Acid [Folvite] 1 mg PO QDAY 10/28/15 10/11/16 10/11/16 Previous Rx's Medication Instructions Recorded Last Taken Type Ketorolac [Toradol] 10 mg PO Q6H PRN #20 tablet 07/12/16 10/11/16 Rx Ondansetron [Zofran Odt] 4 mg PO QID PRN #20 tab.rapdis 07/12/16 10/11/16 Rx Vit W-Ca,Fe,FA(<1 mg) 1 each PO QDAY #30 tablet 07/12/16 10/11/16 Rx [ Vitamins] HYDROcodone/APAP 5-325 [[place] 1 each PO Q6HR PRN #5 tablet 08/30/16 10/11/16 Rx 5/325] Oxycodone HCl/Acetaminophen 1 each PO Q6HR PRN #10 tablet 10/11/16 Unknown Rx [Percocet 10/325 mg] Allergies Allergy/AdvReac Type Severity Reaction Status Date / Time hydralazine [Hydralazine] Allergy Unknown Verified 10/11/16 19:18 hydroxyurea Allergy Unknown Verified 10/11/16 19:18 morphine Allergy Shortness Verified 10/11/16 19:18 of Breath nalbuphine HCl [From Nubain] Allergy Unknown Verified 10/11/16 19:18 sulfamethoxazole Allergy Unknown Verified 10/11/16 19:18 [From Bactrim] trimethoprim [From Bactrim] Allergy Unknown Verified 10/11/16 19:18 ED Review of Systems ROS: Stated complaint: SICKLE CELL PAIN Other details as noted in HPI Comment: All other systems reviewed and negative Constitutional: denies: chills, fever Cardiovascular: denies: chest pain ED Past Medical Hx - Past Medical History Previous Medical History?: Yes Hx Hypertension: Yes Hx Deep Vein Thrombosis: Yes Hx Sickle Cell Disease: Yes Hx Tuberculosis: Yes - Surgical History Past Surgical History?: Yes Hx Cholecystectomy: Yes Additional Surgical History: csection x1,. port R chest - Social History Smoking Status: Never Smoker Substance Use Type: Alcohol, Marijuana, Prescribed - Medications Home Medications: Home Medications Medication Instructions Recorded Confirmed Last Taken Type Metoprolol [Lopressor TAB] 100 mg PO BID 01/16/13 10/11/16 10/11/16 History Lisinopril [Zestril TAB] 10 mg PO QDAY 09/12/15 10/11/16 10/11/16 History Folic Acid [Folvite] 1 mg PO QDAY 10/28/15 10/11/16 10/11/16 History Ketorolac [Toradol] 10 mg PO Q6H PRN #20 tablet 07/12/16 10/11/16 10/11/16 Rx Ondansetron [Zofran Odt] 4 mg PO QID PRN #20 tab.rapdis 07/12/16 10/11/16 Rx Vit W-Ca,Fe,FA(<1 mg) 1 each PO QDAY #30 tablet 07/12/16 10/11/1610/11 Rx [ Vitamins] HYDROcodone/APAP 5-325 [[place] 1 each PO Q6HR PRN #5 tablet 08/30/16 10/11/1611/20 Rx 5/325] Oxycodone HCl/Acetaminophen 1 each PO Q6HR PRN #10 tablet 10/11/16 Unknown Rx [Percocet 10/325 mg] ED Physical Exam - General Limitations: No Limitations General appearance: alert, in no apparent distress - Head Head exam: Present: atraumatic, normocephalic - Eye Eye exam: Present: normal appearance - ENT ENT exam: Present: mucous membranes moist - Neck Neck exam: Present: normal inspection - Respiratory Respiratory exam: Present: normal lung sounds bilaterally. Absent: respiratory distress - Cardiovascular Cardiovascular Exam: Present: regular rate, normal rhythm, other (vascular port and right upper chest). Absent: systolic murmur, diastolic murmur, rubs, gallop - GI/Abdominal GI/Abdominal exam: Present: soft, normal bowel sounds - Extremities Exam Extremities exam: Present: normal inspection - Back Exam Back exam: Present: normal inspection - Neurological Exam Neurological exam: Present: alert, oriented X3 - Psychiatric Psychiatric exam: Present: normal affect, normal mood - Skin Skin exam: Present: warm, dry, intact, normal color. Absent: rash ED Course Vital Signs 10/11/16 10/11/16 10/11/16 15:58 19:33 19:34 Temperature 99.1 F Pulse Rate 85 83 Respiratory 16 20 20 Rate Blood Pressure 158/102 Blood Pressure 160/99 [Right] O2 Sat by Pulse 99 100 Oximetry ED Medical Decision Making - Lab Data Result diagrams: 10/11/16 Unknown Abnormal Lab Results 10/11/16 Unknown WBC TNR RBC TNR Hgb TNR Hct TNR MCV TNR MCH TNR MCHC TNR RDW TNR Plt Count TNR Lymph % (Auto) TNR [place] % (Auto) TNR Eos % (Auto) TNR Baso % (Auto) TNR Lymph # TNR [place] # TNR Eos # TNR Baso # TNR Add Manual Diff TNR Seg Neutrophils % TNR Seg Neutrophils # TNR Percent Retic TNR Immature Retic Fraction TNR Laboratory Results - last 24 hr 10/11/16 Unknown WBC TNR RBC TNR Hgb TNR Hct TNR MCV TNR MCH TNR MCHC TNR RDW TNR Plt Count TNR Lymph % (Auto) TNR [place] % (Auto) TNR Eos % (Auto) TNR Baso % (Auto) TNR Lymph # TNR [place] # TNR Eos # TNR Baso # TNR Add Manual Diff TNR Seg Neutrophils % TNR Seg Neutrophils # TNR Percent Retic TNR Immature Retic Fraction TNR - Medical Decision Making 41-year-old female with sickle cell disease well known to me. Plan to check labs treat with single doses of IM narcotics as the patient is requesting not to have her port accessed. No fevers chills. I do not suspect an infection or acute chest. Patient with slight improvement after 2 rounds of pain medication. Lab results have not returned the patient is requesting to leave. Given that I do not suspect she has an infection and I know her well and I will discharge her. Portions of this chart were dictated with dictation software. There may be dictation errors contained within this note. Critical care attestation.: If time is entered above; I have spent that time in minutes in the direct care of this critically ill patient, excluding procedure time. ED Disposition Clinical Impression: Sickle cell pain crisis Disposition: DC-01 TO HOME OR SELFCARE Is pt being admited?: No Condition: Stable Instructions: Sickle Cell Crisis (ED) Prescriptions: Oxycodone HCl/Acetaminophen [Percocet 10/325 mg] 1 each PO Q6HR PRN #10 tablet PRN Reason: Pain Referrals: PRIMARY CARE, [Primary Care Provider] - 3-5 Days
[2016-10-11] MEDS ORDERED: BENADRYL PO ONE (18:10)
[2016-10-11 18:34] LABS: Hematocrit TNR % (30.3-42.9); Hemoglobin TNR gm/dl (10.1-14.3); Mean Corpuscular HGB Conc TNR % (30-34); Mean Corpuscular Hemoglobin TNR pg (28-32); Mean Corpuscular Volume TNR fl (79-97); Mean Platelet Volume TNR fl (6-12); Platelet Count TNR K/mm3 (140-440); Red Blood Count TNR M/mm3 (3.65-5.03); Red Cell Distribution Width TNR % (13.2-15.2); White Blood Count TNR K/mm3 (4.5-11.0)
[2016-10-11 18:35] LABS: Basophils % (Auto) TNR % (0.0-1.8); Eosinophils % (Auto) TNR % (0.0-4.3)
[2016-10-11 18:36] LABS: Diff Status TNR; Immature Retic Fraction TNR; Reticulocyte % TNR % (0.78-2.58)
[2016-10-11] MEDS ORDERED: DILAUDID IV ONE (19:48)
[2016-10-11] MEDS ORDERED: FLUSH HEPARIN IV ONE (20:53)
[2016-10-11 21:01] VITALS: BP 159/80
== END 2016-10-11 21:02 | disposition home or self-care (01) ==
LOC: ED 15:41
DX: D57.00 Hb-SS disease with crisis, unspecified (principal); I10 Essential (primary) hypertension; I82.409 Acute embolism and thrombosis of unspecified deep veins of unspecified lower extremity; Z86.11 Personal history of tuberculosis; F12.10 Cannabis abuse, uncomplicated; Z88.2 Allergy status to sulfonamides; Z88.8 Allergy status to other drugs, medicaments and biological substances
CPT/HCPCS: 36415; 85025; 85045; 96361; 96372; 96374; 99283; J1170; J1642; J1885

== ENCOUNTER 2016-11-27 02:48 | Emergency (ER) | payer MEDICARE ==
[2016-11-27 03:00] VITALS: BP 144/95
[2016-11-27] MEDS ORDERED: D5NS 0.2% 1,000 ML IV SCH (05:00)
== END 2016-11-27 04:20 | disposition left against medical advice (07) ==
LOC: ED 02:48
DX: D57.1 Sickle-cell disease without crisis (principal); Z53.21 Procedure and treatment not carried out due to patient leaving prior to being seen by health care provider

== ENCOUNTER 2016-12-07 13:51 | Emergency (ER) | payer MEDICARE ==
[2016-12-07] MEDS ORDERED: D5NS 0.2% 1,000 ML IV SCH (15:00)
[2016-12-07] MEDS ORDERED: DILAUDID IV ONE ×2 (19:58→21:05)
[2016-12-07] MEDS ORDERED: BENADRYL IV ONE (21:05)
[2016-12-07] MEDS ORDERED: FLUSH HEPARIN IV ONE (21:05)
[2016-12-07 21:22] LABS: Hematocrit 24.8 % (30.3-42.9); Hemoglobin 7.7 gm/dl (10.1-14.3); Mean Corpuscular HGB Conc 31 % (30-34); Platelet Count 341 K/mm3 (140-440); Red Blood Count 3.98 M/mm3 (3.65-5.03); Reticulocyte % 1.96 % (0.78-2.58); White Blood Count 6.8 K/mm3 (4.5-11.0)
[2016-12-07 21:24] LABS: Mean Corpuscular Hemoglobin 20 pg (28-32); Mean Corpuscular Volume 62 fl (79-97); Red Cell Distribution Width 20.4 % (13.2-15.2)
[2016-12-07] MEDS ORDERED: DILAUDID IM ONE (21:28)
--- NOTE | 2016-12-07 21:51 | Emergency Department Report ---
ED General Adult HPI - General Chief complaint: Sickle Cell Crisis Stated complaint: SICKLE CELL PAIN Time Seen by Provider: 12/07/16 19:57 Source: patient Mode of arrival: Ambulatory Limitations: No Limitations - History of Present Illness Initial comments: She is a 41-year-old female past medical history of sickle cell anemia who presents with sickle cell pain. Patient states that her sickle cell pain is typical for her sickle cell. She states that the pain is in her hips and back. It has been going on for 1 day. It is a 10 out of 10 analgesic pain medicines make it better nothing makes it worse. She states that the pain radiates throughout her body. She has no shortness of breath or any fever. Patient denies having any chest pain. Severity scale (0 -10): 8 - Related Data Home Medications Medication Instructions Recorded Confirmed Last Taken Metoprolol [Lopressor TAB] 100 mg PO BID 01/16/13 10/11/16 10/11/16 Lisinopril [Zestril TAB] 10 mg PO QDAY 09/12/15 10/11/16 10/11/16 Folic Acid [Folvite] 1 mg PO QDAY 10/28/15 10/11/16 10/11/16 Previous Rx's Medication Instructions Recorded Last Taken Type Ketorolac [Toradol] 10 mg PO Q6H PRN #20 tablet 07/12/16 10/11/16 Rx Ondansetron [Zofran Odt] 4 mg PO QID PRN #20 tab.rapdis 07/12/16 10/11/16 Rx Vit W-Ca,Fe,FA(<1 mg) 1 each PO QDAY #30 tablet 07/12/16 10/11/16 Rx [ Vitamins] HYDROcodone/APAP 5-325 [[place] 1 each PO Q6HR PRN #5 tablet 08/30/16 10/11/16 Rx 5/325] Oxycodone HCl/Acetaminophen 1 each PO Q6HR PRN #10 tablet 10/11/16 Unknown Rx [Percocet 10/325 mg] Allergies Allergy/AdvReac Type Severity Reaction Status Date / Time hydralazine [Hydralazine] Allergy Unknown Verified 10/11/16 19:18 hydroxyurea Allergy Unknown Verified 10/11/16 19:18 morphine Allergy Shortness Verified 10/11/16 19:18 of Breath nalbuphine HCl [From Nubain] Allergy Unknown Verified 10/11/16 19:18 sulfamethoxazole Allergy Unknown Verified 10/11/16 19:18 [From Bactrim] trimethoprim [From Bactrim] Allergy Unknown Verified 10/11/16 19:18 ED Review of Systems ROS: Stated complaint: SICKLE CELL PAIN Other details as noted in HPI Constitutional: denies: chills, fever Eyes: denies: eye pain, eye discharge, vision change ENT: denies: ear pain, throat pain Respiratory: denies: cough, shortness of breath, wheezing Cardiovascular: denies: chest pain, palpitations Endocrine: no symptoms reported Gastrointestinal: denies: abdominal pain, nausea, diarrhea Genitourinary: denies: urgency, dysuria, discharge Musculoskeletal: as per HPI, myalgia. denies: back pain, joint swelling, arthralgia Skin: denies: rash, lesions Neurological: denies: headache, weakness, paresthesias Psychiatric: denies: anxiety, depression Hematological/Lymphatic: denies: easy bleeding, easy bruising ED Past Medical Hx - Past Medical History Previous Medical History?: Yes Hx Hypertension: Yes Hx Deep Vein Thrombosis: Yes Hx Sickle Cell Disease: Yes Hx Tuberculosis: Yes - Surgical History Past Surgical History?: Yes Hx Cholecystectomy: Yes Additional Surgical History: csection x1,. port R chest - Social History Smoking Status: Never Smoker Substance Use Type: Alcohol - Medications Home Medications: Home Medications Medication Instructions Recorded Confirmed Last Taken Type Metoprolol [Lopressor TAB] 100 mg PO BID 01/16/13 10/11/16 10/11/16 History Lisinopril [Zestril TAB] 10 mg PO QDAY 09/12/15 10/11/16 10/11/16 History Folic Acid [Folvite] 1 mg PO QDAY 10/28/15 10/11/16 10/11/16 History Ketorolac [Toradol] 10 mg PO Q6H PRN #20 tablet 07/12/16 10/11/16 10/11/16 Rx Ondansetron [Zofran Odt] 4 mg PO QID PRN #20 tab.rapdis 07/12/16 10/11/16 Rx Vit W-Ca,Fe,FA(<1 mg) 1 each PO QDAY #30 tablet 07/12/16 10/11/1610/11 Rx [ Vitamins] HYDROcodone/APAP 5-325 [[place] 1 each PO Q6HR PRN #5 tablet 08/30/16 10/11/1611/20 Rx 5/325] Oxycodone HCl/Acetaminophen 1 each PO Q6HR PRN #10 tablet 10/11/16 Unknown Rx [Percocet 10/325 mg] ED Physical Exam - General Limitations: No Limitations General appearance: alert, in no apparent distress - Head Head exam: Present: atraumatic, normocephalic - Eye Eye exam: Present: normal appearance - ENT ENT exam: Present: mucous membranes moist - Neck Neck exam: Present: normal inspection - Respiratory Respiratory exam: Present: normal lung sounds bilaterally. Absent: respiratory distress - Cardiovascular Cardiovascular Exam: Present: regular rate, normal rhythm, other (right chest port). Absent: systolic murmur, diastolic murmur, rubs, gallop - GI/Abdominal GI/Abdominal exam: Present: soft, normal bowel sounds - Extremities Exam Extremities exam: Present: normal inspection - Back Exam Back exam: Present: normal inspection - Neurological Exam Neurological exam: Present: alert, oriented X3 - Psychiatric Psychiatric exam: Present: normal affect, normal mood - Skin Skin exam: Present: warm, dry, intact, normal color. Absent: rash ED Course Vital Signs 12/07/16 12/07/16 12/07/16 14:09 18:24 20:00 Temperature 98.7 F 98.3 F Pulse Rate 85 67 71 Respiratory 18 18 16 Rate Blood Pressure 156/104 Blood Pressure 158/112 163/110 [Left] O2 Sat by Pulse 98 100 91 Oximetry 12/07/16 12/07/16 12/07/16 20:04 20:39 21:11 Temperature Pulse Rate Respiratory 16 16 16 Rate Blood Pressure Blood Pressure [Left] O2 Sat by Pulse 91 Oximetry - Reevaluation(s) Reevaluation #1: 12/07/16 21:49 It is feeling better after IM Dilaudid and I'll send patient home. ED Medical Decision Making - Lab Data Result diagrams: 12/07/16 14:17 Lab Results 12/07/16 Range/Units 14:17 WBC 6.8 (4.5-11.0) K/mm3 RBC 3.98 (3.65-5.03) M/mm3 Hgb 7.7 L (10.1-14.3) gm/dl Hct 24.8 L (30.3-42.9) % MCV 62 L (79-97) fl MCH 20 L (28-32) pg MCHC 31 (30-34) % RDW 20.4 H (13.2-15.2) % Plt Count 341 (140-440) K/mm3 Lymph % (Auto) Manager Behavior Seg Neutrophils % Manager Behavior Percent Retic 1.96 (0.78-2.58) % - Medical Decision Making Chief medical diagnosis: Vaso-occlusive crisis. Differential medical diagnosis: Arthralgia, anemia CBC and IV fluids and IV analgesic pain medicine Patient has sickle cell anemia CBC is unremarkable I will send patient home K patient return precautions return to the emergency department. Critical care attestation.: If time is entered above; I have spent that time in minutes in the direct care of this critically ill patient, excluding procedure time. ED Disposition Clinical Impression: Sickle cell anemia Qualifiers: Sickle-cell associated disorders: without crisis Qualified Code(s): D57.1 - Sickle-cell disease without crisis Sickle cell anemia Qualifiers: Sickle-cell associated disorders: without crisis Qualified Code(s): D57.1 - Sickle-cell disease without crisis Hip pain, acute Qualifiers: Laterality: unspecified laterality Qualified Code(s): M25.559 - Pain in unspecified hip Pain in lower back Qualifiers: Chronicity: acute Back pain laterality: unspecified Sciatica presence: without sciatica Qualified Code(s): M54.5 - Low back pain Disposition: - TO HOME OR SELFCARE Is pt being admited?: No Does the pt Need Aspirin: No Condition: Stable Instructions: Sickle Cell Crisis (ED) Referrals: PRIMARY CARE, [Primary Care Provider] - 3-5 Days
[2016-12-07 22:23] VITALS: BP 171/103
[2016-12-07 22:35] LABS: Blastocytes % (Manual) 0 %
[2016-12-07 22:36] LABS: Hypochromasia 3+; Target Cells 3+
[2016-12-07 22:37] LABS: Microcytosis 3+; Platelet Estimate Consistent w Auto
[2016-12-07 22:38] LABS: Diff Status Complete
== END 2016-12-07 22:15 | disposition home or self-care (01) ==
LOC: ED 13:51
DX: D57.1 Sickle-cell disease without crisis (principal); M25.551 Pain in right hip; M25.552 Pain in left hip; M54.5 Low back pain; I10 Essential (primary) hypertension; Z88.6 Allergy status to analgesic agent; Z88.1 Allergy status to other antibiotic agents; Z88.2 Allergy status to sulfonamides; Z88.8 Allergy status to other drugs, medicaments and biological substances; Z86.718 Personal history of other venous thrombosis and embolism
CPT/HCPCS: 36415; 85007; 85025; 85045; 96372; 96374; 96375; 96376; 99283; A6021; J1170; J1200; J1642

== ENCOUNTER 2017-05-04 13:45 | Emergency (ER) | payer MEDICARE | END 2017-05-04 13:46 | disposition left against medical advice (07) | LOC: ED 13:45 | DX: Z53.21 Procedure and treatment not carried out due to patient leaving prior to being seen by health care provider (principal) ==

== ENCOUNTER 2017-05-27 23:29 | Emergency (ER) | payer MEDICARE ==
[2017-05-28] MEDS ORDERED: D5NS 0.2% 1,000 ML IV SCH (01:00)
[2017-05-28] MEDS ORDERED: DILAUDID IV ONE ×3 (01:36→03:36)
[2017-05-28] MEDS ORDERED: BENADRYL IV ONE ×2 (01:36→02:50)
[2017-05-28] MEDS ORDERED: ZOFRAN IV ONE (01:36)
--- NOTE | 2017-05-28 01:40 | Emergency Department Report ---
ED General Adult HPI - General Chief complaint: Sickle Cell Crisis Stated complaint: SICKLE CELL CRISIS Time Seen by Provider: 05/28/17 01:29 Source: patient Mode of arrival: Ambulatory Limitations: No Limitations - History of Present Illness Initial comments: 42-year-old female with a past medical history DVT, hypertension, sickle cell disease, previous cholecystectomy and a right chest port is in the hospital complaining of sickle cell crisis since yesterday. Patient complains of pain into her back up and down her spine in her bilateral hips. Pain is constant, rated 7-9/10 in intensity, not alleviated by her Percocet 10/325 and MS Contin 10, and worse with movement and palpation. Patient denies fever, dysuria, abdominal pain, chest pain, or shortness of breath. Pain is typical of crisis type pain. Her district loss prevention manager is Dr Jones with [facility] - Related Data Home Medications Medication Instructions Recorded Confirmed Last Taken Metoprolol [Lopressor TAB] 100 mg PO BID 01/16/13 10/11/16 10/11/16 Lisinopril [Zestril TAB] 10 mg PO QDAY 09/12/15 10/11/16 10/11/16 Folic Acid [Folvite] 1 mg PO QDAY 10/28/15 10/11/16 10/11/16 Previous Rx's Medication Instructions Recorded Last Taken Type Ketorolac [Toradol] 10 mg PO Q6H PRN #20 tablet 07/12/16 10/11/16 Rx Ondansetron [Zofran Odt] 4 mg PO QID PRN #20 tab.rapdis 07/12/16 10/11/16 Rx Vit Calc,Iron,Folic 1 each PO QDAY #30 tablet 07/12/16 10/11/16 Rx [ Vitamins] HYDROcodone/APAP 5-325 [[place] 1 each PO Q6HR PRN #5 tablet 08/30/16 10/11/16 Rx 5/325] Oxycodone HCl/Acetaminophen 1 each PO Q6HR PRN #10 tablet 10/11/16 Unknown Rx [Percocet 10/325 mg] Allergies Allergy/AdvReac Type Severity Reaction Status Date / Time hydralazine [Hydralazine] Allergy Unknown Verified 10/11/16 19:18 hydroxyurea Allergy Unknown Verified 10/11/16 19:18 morphine Allergy Shortness Verified 10/11/16 19:18 of Breath nalbuphine HCl [From Nubain] Allergy Unknown Verified 10/11/16 19:18 sulfamethoxazole Allergy Unknown Verified 10/11/16 19:18 [From Bactrim] trimethoprim [From Bactrim] Allergy Unknown Verified 10/11/16 19:18 ED Review of Systems ROS: Stated complaint: SICKLE CELL CRISIS Other details as noted in HPI Comment: All other systems reviewed and negative Other: Constitutional: No fevers chills Eyes: No eye pain visual changes ENT: No ear pain or throat pain Neck: Denies pain Respiratory: Denies cough wheezing shortness of breath Cardiovascular: Denies chest pain, palpitations, syncope GI: Denies abdominal pain, nausea, vomiting, diarrhea : Denies dysuria Musculoskeletal: As per HPI Skin: Denies rash, lesions, erythema Neurologic: Denies headache, numbness, weakness Psychiatric: Denies suicidal ideation, hallucinations ED Past Medical Hx - Past Medical History Previous Medical History?: Yes Hx Hypertension: Yes Hx Deep Vein Thrombosis: Yes Hx Sickle Cell Disease: Yes Hx Tuberculosis: Yes - Surgical History Past Surgical History?: Yes Hx Cholecystectomy: Yes Additional Surgical History: csection x1,. port R chest - Social History Smoking Status: Never Smoker Substance Use Type: Alcohol - Medications Home Medications: Home Medications Medication Instructions Recorded Confirmed Last Taken Type Metoprolol [Lopressor TAB] 100 mg PO BID 01/16/13 10/11/16 10/11/16 History Lisinopril [Zestril TAB] 10 mg PO QDAY 09/12/15 10/11/16 10/11/16 History Folic Acid [Folvite] 1 mg PO QDAY 10/28/15 10/11/16 10/11/16 History Ketorolac [Toradol] 10 mg PO Q6H PRN #20 tablet 07/12/16 10/11/16 10/11/16 Rx Ondansetron [Zofran Odt] 4 mg PO QID PRN #20 tab.rapdis 07/12/16 10/11/16 Rx Vit Calc,Iron,Folic 1 each PO QDAY #30 tablet 07/12/16 10/11/16 Rx [ Vitamins] HYDROcodone/APAP 5-325 [[place] 1 each PO Q6HR PRN #5 tablet 08/30/16 10/11/1611/20 Rx 5/325] Oxycodone HCl/Acetaminophen 1 each PO Q6HR PRN #10 tablet 10/11/16 Unknown Rx [Percocet 10/325 mg] ED Physical Exam - General Limitations: No Limitations - Other Other exam information: General: No limitations, patient is alert in no acute distress Head exam: Atraumatic, normocephalic Eyes exam: Normal appearance ENT: Moist mucous membrane, normal oropharynx Neck exam: Normal inspection, full range of motion, no meningismus nontender Respiratory exam: Clear to auscultation bilateral, no wheezes, rales, crackles Cardiovascular: Normal rate and rhythm, normal heart sounds Abdomen: Soft, nondistended, and nontender, with normal bowel sounds, no rebound, or guarding Extremity: Full range of motion normal inspection no deformity Back: Normal Inspection, full range of motion, tenderness down the middle of thoracic and lumbar spine Neurologic: Alert, oriented x3, cranial nerves intact, no motor or sensory deficit Psychiatric: normal affect, normal mood Skin: Warm, dry, intact ED Course Vital Signs 05/28/17 05/28/17 05/28/17 00:40 02:09 02:25 Temperature 98.1 F 97.8 F Pulse Rate 56 L 68 Respiratory 18 16 16 Rate Blood Pressure 152/103 Blood Pressure 168/100 [Right] O2 Sat by Pulse 98 100 Oximetry 05/28/17 05/28/17 05/28/17 02:26 02:39 02:51 Temperature Pulse Rate Respiratory 16 16 16 Rate Blood Pressure Blood Pressure [Right] O2 Sat by Pulse 100 Oximetry 05/28/17 05/28/17 05/28/17 03:21 03:41 04:21 Temperature Pulse Rate 52 L Respiratory 16 16 Rate Blood Pressure 96/55 Blood Pressure [Right] O2 Sat by Pulse Oximetry 05/28/17 05:01 Temperature Pulse Rate 60 Respiratory Rate Blood Pressure Blood Pressure 136/100 [Right] O2 Sat by Pulse Oximetry - Reevaluation(s) Reevaluation #1: 05/28/17 03:53 Patient received 3 separate doses Dilaudid 2 mg, 2 separate doses of Benadryl 25 mg with improvement in pain. She also received IV fluids during her ED stay. ED Medical Decision Making - Lab Data Result diagrams: 05/28/17 01:50 Lab Results 05/28/17 Range/Units 01:50 WBC 8.3 (4.5-11.0) K/mm3 RBC 3.90 (3.65-5.03) M/mm3 Hgb 8.7 L (10.1-14.3) gm/dl Hct 26.2 L (30.3-42.9) % MCV 67 L (79-97) fl MCH 22 L (28-32) pg MCHC 33 (30-34) % RDW 19.8 H (13.2-15.2) % Plt Count 349 (140-440) K/mm3 Percent Retic 1.58 (0.78-2.58) % - Medical Decision Making sickle cell crisis Pt has anemia but no need for blood transfusion at this time. No leukocytosis. Pain improved with treatment in the ED. With tick count normal. Patient was discharged to continue her current pain medication and follow-up with her district loss prevention manager Hypertension Chronic Asymptomatic Patient did not take her evening dose of Lopressor 100 mg Blood pressure and heart rate decreased after multiple narcotics and therefore Lopressor not given - Differential Diagnosis anemia, sickle cell crisis, infection Critical Care Time: No Critical care attestation.: If time is entered above; I have spent that time in minutes in the direct care of this critically ill patient, excluding procedure time. ED Disposition Clinical Impression: Hypertension, Sickle cell pain crisis, Sickle cell anemia Disposition: TO HOME OR SELFCARE Is pt being admited?: No Does the pt Need Aspirin: No Condition: Stable Instructions: Sickle Cell Crisis (ED), Hypertension (ED) Additional Instructions: Follow-up with your doctor. Take the medications as prescribed. Return if symptoms worsen. Referrals: your, district loss prevention manager [Other] - 2-3 Days Time of Disposition: 05:03
[2017-05-28] MEDS ORDERED: DILAUDID ONE ×3 (01:54→03:38)
[2017-05-28 02:00] LABS: Hematocrit 26.2 % (30.3-42.9); Hemoglobin 8.7 gm/dl (10.1-14.3); Mean Corpuscular HGB Conc 33 % (30-34); Platelet Count 349 K/mm3 (140-440); Red Cell Distribution Width 19.8 % (13.2-15.2)
[2017-05-28 02:06] LABS: Mean Corpuscular Hemoglobin 22 pg (28-32); Mean Corpuscular Volume 67 fl (79-97)
[2017-05-28] MEDS ORDERED: LOPRESSOR PO ONE (03:56)
[2017-05-28] MEDS ORDERED: NACL 0.9% 500 ML 500 ML IV ONE (04:18)
[2017-05-28] MEDS ORDERED: NACL 0.9% 500 ML 500 ML ONE (04:19)
[2017-05-28 05:02] VITALS: BP 136/100
[2017-05-28 07:57] LABS: Total Cells Counted 100
[2017-05-28 07:58] LABS: Anisocytosis 2+; Hypochromasia 3+; Target Cells 2+
[2017-05-28 07:59] LABS: Large Platelets Few; Platelet Estimate Cons
== END 2017-05-28 05:18 | disposition home or self-care (01) ==
LOC: ED 23:29
DX: D57.00 Hb-SS disease with crisis, unspecified (principal); I10 Essential (primary) hypertension; Z86.718 Personal history of other venous thrombosis and embolism; Z90.49 Acquired absence of other specified parts of digestive tract
CPT/HCPCS: 36415; 85007; 85025; 85045; 96361; 96374; 96375; 96376; 99283; J1170; J1200; J2405; J7040

== ENCOUNTER 2017-05-31 08:36 | Emergency (ER) | payer MEDICARE ==
--- NOTE | 2017-05-31 10:32 | Emergency Department Report ---
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 No fever, chills, nausea , vomiting, or chest pain. She was checked for avascular necrosis of the hip in the past and it was negative. Pain is 7/10, constant.) - Related Data Home Medications Medication Instructions Recorded Confirmed Last Taken Metoprolol [Lopressor TAB] 100 mg PO BID 01/16/13 10/11/16 10/11/16 Lisinopril [Zestril TAB] 10 mg PO QDAY 09/12/15 10/11/16 10/11/16 Folic Acid [Folvite] 1 mg PO QDAY 10/28/15 10/11/16 10/11/16 Previous Rx's Medication Instructions Recorded Last Taken Type Ketorolac [Toradol] 10 mg PO Q6H PRN #20 tablet 07/12/16 10/11/16 Rx Ondansetron [Zofran Odt] 4 mg PO QID PRN #20 tab.rapdis 07/12/16 10/11/16 Rx Vit Calc,Iron,Folic 1 each PO QDAY #30 tablet 07/12/16 10/11/16 Rx [ Vitamins] HYDROcodone/APAP 5-325 [[place] 1 each PO Q6HR PRN #5 tablet 08/30/16 10/11/16 Rx 5/325] Oxycodone HCl/Acetaminophen 1 each PO Q6HR PRN #10 tablet 10/11/16 Unknown Rx [Percocet 10/325 mg] Allergies Allergy/AdvReac Type Severity Reaction Status Date / Time hydralazine [Hydralazine] Allergy Unknown Verified 10/11/16 19:18 hydroxyurea Allergy Unknown Verified 10/11/16 19:18 morphine Allergy Shortness Verified 10/11/16 19:18 of Breath nalbuphine HCl [From Nubain] Allergy Unknown Verified 10/11/16 19:18 sulfamethoxazole Allergy Unknown Verified 10/11/16 19:18 [From Bactrim] trimethoprim [From Bactrim] Allergy Unknown Verified 10/11/16 19:18 ED Review of Systems ROS: Stated complaint: SICKLE CELL PAIN Other details as noted in HPI Constitutional: denies: chills, fever Eyes: denies: eye pain, eye discharge, vision change ENT: denies: ear pain, throat pain Respiratory: denies: cough, shortness of breath, wheezing Cardiovascular: denies: chest pain, palpitations Endocrine: no symptoms reported Gastrointestinal: denies: abdominal pain, nausea, diarrhea Genitourinary: denies: urgency, dysuria, discharge Musculoskeletal: back pain, arthralgia. denies: joint swelling Skin: denies: rash, lesions Neurological: denies: headache, weakness, paresthesias Psychiatric: denies: anxiety, depression Hematological/Lymphatic: denies: easy bleeding, easy bruising ED Past Medical Hx - Past Medical History Previous Medical History?: Yes Hx Hypertension: Yes Hx Deep Vein Thrombosis: Yes Hx Sickle Cell Disease: Yes Hx Tuberculosis: Yes - Surgical History Hx Cholecystectomy: Yes Additional Surgical History: csection x1,. port R chest - Social History Smoking Status: Never Smoker Substance Use Type: Alcohol - Medications Home Medications: Home Medications Medication Instructions Recorded Confirmed Last Taken Type Metoprolol [Lopressor TAB] 100 mg PO BID 01/16/13 10/11/16 10/11/16 History Lisinopril [Zestril TAB] 10 mg PO QDAY 09/12/15 10/11/16 10/11/16 History Folic Acid [Folvite] 1 mg PO QDAY 10/28/15 10/11/16 10/11/16 History Ketorolac [Toradol] 10 mg PO Q6H PRN #20 tablet 07/12/16 10/11/16 10/11/16 Rx Ondansetron [Zofran Odt] 4 mg PO QID PRN #20 tab.rapdis 07/12/16 10/11/16 Rx Vit Calc,Iron,Folic 1 each PO QDAY #30 tablet 07/12/16 10/11/16 Rx [ Vitamins] HYDROcodone/APAP 5-325 [[place] 1 each PO Q6HR PRN #5 tablet 05/27/17 07/08/17 07/ 08/17 Rx 5/325] Oxycodone HCl/Acetaminophen 1 each PO Q6HR PRN #10 tablet 10/11/16 Unknown Rx [Percocet 10/325 mg] ED Physical Exam - General Limitations: No Limitations General appearance: alert, in no apparent distress - Head Head exam: Present: atraumatic, normocephalic - Eye Eye exam: Present: normal appearance - ENT ENT exam: Present: mucous membranes moist - Neck Neck exam: Present: normal inspection - Respiratory Respiratory exam: Present: normal lung sounds bilaterally. Absent: respiratory distress - Cardiovascular Cardiovascular Exam: Present: regular rate, normal rhythm. Absent: systolic murmur, diastolic murmur, rubs, gallop - GI/Abdominal GI/Abdominal exam: Present: soft, normal bowel sounds - Extremities Exam Extremities exam: Present: normal inspection - Back Exam Back exam: Present: normal inspection - Neurological Exam Neurological exam: Present: alert, oriented X3 - Psychiatric Psychiatric exam: Present: normal affect, normal mood - Skin Skin exam: Present: warm, dry, intact, normal color. Absent: rash ED Course Vital Signs 05/31/17 05/31/17 05/31/17 08:48 10:35 10:40 Temperature 98.7 F Pulse Rate 60 88 Respiratory 16 16 16 Rate Blood Pressure 129/98 Blood Pressure 155/110 [Left] O2 Sat by Pulse 100 99 98 Oximetry 05/31/17 05/31/17 05/31/17 11:16 11:46 12:05 Temperature Pulse Rate Respiratory 16 16 16 Rate Blood Pressure Blood Pressure [Left] O2 Sat by Pulse Oximetry 05/31/17 12:24 Temperature Pulse Rate 84 Respiratory 16 Rate Blood Pressure Blood Pressure 134/87 [Left] O2 Sat by Pulse 99 Oximetry ED Medical Decision Making - Lab Data Result diagrams: 05/31/17 10:45 05/31/17 10:45 Critical care attestation.: If time is entered above; I have spent that time in minutes in the direct care of this critically ill patient, excluding procedure time. ED Disposition Clinical Impression: Sickle cell pain crisis Disposition: DC-01 TO HOME OR SELFCARE Is pt being admited?: No Does the pt Need Aspirin: No Condition: Stable Instructions: Sickle Cell Crisis (ED) Referrals: MD RAYMOND [Other] - 3-5 Days Time of Disposition: 14:24
[2017-05-31] MEDS ORDERED: DILAUDID IV ONE ×3 (10:49→13:45)
[2017-05-31] MEDS ORDERED: BENADRYL IV ONE (10:49)
[2017-05-31] MEDS ORDERED: NACL 0.9% 1000 ML 1,000 ML ONE (10:57)
[2017-05-31] MEDS ORDERED: DILAUDID ONE ×3 (11:02→13:47)
[2017-05-31] MEDS ORDERED: NACL 0.9% 1000 ML 1,000 ML IV SCH (11:04)
[2017-05-31 11:06] LABS: Hematocrit 25.3 % (30.3-42.9); Hemoglobin 8.2 gm/dl (10.1-14.3); Mean Corpuscular HGB Conc 32 % (30-34); Platelet Count 331 K/mm3 (140-440); Red Blood Count 3.73 M/mm3 (3.65-5.03); Red Cell Distribution Width 19.5 % (13.2-15.2)
[2017-05-31 11:10] LABS: BUN/Creatinine Ratio 13; Blood Urea Nitrogen 8 mg/dL (7-17); Calcium 9.8 mg/dL (8.4-10.2); Hemolysis Index 0; Mean Corpuscular Hemoglobin 22 pg (28-32); Mean Corpuscular Volume 68 fl (79-97)
[2017-05-31 11:40] LABS: Basophils % (Manual) 0 % (0.0-1.8); Total Cells Counted 100
[2017-05-31 11:41] LABS: Anisocytosis 2+; Hypochromasia 3+; Sickle Cells Few; Target Cells 2+
[2017-05-31 11:42] LABS: Large Platelets Few; Platelet Estimate Consistent w Auto
[2017-05-31] MEDS ORDERED: FLUSH HEPARIN IV ONE (14:43)
[2017-05-31 15:10] VITALS: BP 132/78
== END 2017-05-31 15:10 | disposition home or self-care (01) ==
LOC: ED 08:36
DX: D57.00 Hb-SS disease with crisis, unspecified (principal); I10 Essential (primary) hypertension; Z88.6 Allergy status to analgesic agent; Z88.1 Allergy status to other antibiotic agents; Z88.2 Allergy status to sulfonamides; Z88.8 Allergy status to other drugs, medicaments and biological substances
CPT/HCPCS: 36415; 80048; 85007; 85025; 85045; 96361; 96374; 96375; 96376; 99283; J1170; J1200; J1642; J7030

== ENCOUNTER 2017-06-06 13:13 | Emergency (ER) | payer MEDICARE ==
[2017-06-06 13:24] VITALS: BP 154/121
[2017-06-06] MEDS ORDERED: ZOFRAN IV ONE (14:25)
[2017-06-06] MEDS ORDERED: BENADRYL IV ONE (14:25)
[2017-06-06] MEDS ORDERED: DILAUDID IV ONE (14:25)
--- NOTE | 2017-06-06 14:27 | Emergency Department Report ---
ED General Adult HPI - General Chief complaint: Sickle Cell Crisis Stated complaint: HIP AND BACK PAIN / SICKLE CELL Time Seen by Provider: 06/06/17 14:16 Source: patient Mode of arrival: Ambulatory Limitations: No Limitations - History of Present Illness Initial comments: This is the third emergency department visit since 05/27/2017. The patient states that she does not have a problem with chronic pain management. She was here on 2 prior occasions and found to have a reticulocyte count of less than 2. She complains of chronic pain involving her hip. 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 Complains of chronic problems with her knees and her shoulders. She is requesting Dilaudid for pain. She is non-receptive to chronic pain management. She states "I do not frequent the hospital". She has had no recent fever chills nausea vomiting chest or abdominal pain. She's had no shortness of breath. -: Gradual Location: upper extremity, lower extremity Radiation: non-radiation Quality: aching Consistency: intermittent Improves with: none Associated Symptoms: denies other symptoms Treatments Prior to Arrival: other (chronic Percocet) - Related Data Home Medications Medication Instructions Recorded Confirmed Last Taken Metoprolol [Lopressor TAB] 100 mg PO BID 01/16/13 10/11/16 10/11/16 Lisinopril [Zestril TAB] 10 mg PO QDAY 09/12/15 10/11/16 10/11/16 Folic Acid [Folvite] 1 mg PO QDAY 10/28/15 10/11/16 10/11/16 Previous Rx's Medication Instructions Recorded Last Taken Type Ketorolac [Toradol] 10 mg PO Q6H PRN #20 tablet 07/12/16 10/11/16 Rx Ondansetron [Zofran Odt] 4 mg PO QID PRN #20 tab.rapdis 07/12/16 10/11/16 Rx Vit Calc,Iron,Folic 1 each PO QDAY #30 tablet 07/12/16 10/11/16 Rx [ Vitamins] HYDROcodone/APAP 5-325 [[place] 1 each PO Q6HR PRN #5 tablet 08/30/16 10/11/16 Rx 5/325] Oxycodone HCl/Acetaminophen 1 each PO Q6HR PRN #10 tablet 10/11/16 Unknown Rx [Percocet 10/325 mg] traMADol [Ultram] 50 mg PO Q4HR PRN #20 tablet 06/06/17 Unknown Rx Allergies Allergy/AdvReac Type Severity Reaction Status Date / Time hydralazine [Hydralazine] Allergy Unknown Verified 06/06/17 13:21 hydroxyurea Allergy Unknown Verified 06/06/17 13:21 morphine Allergy Shortness Verified 06/06/17 13:21 of Breath nalbuphine HCl [From Nubain] Allergy Unknown Verified 06/06/17 13:21 sulfamethoxazole Allergy Unknown Verified 06/06/17 13:21 [From Bactrim] trimethoprim [From Bactrim] Allergy Unknown Verified 06/06/17 13:21 ED Review of Systems ROS: Stated complaint: HIP AND BACK PAIN / SICKLE CELL Other details as noted in HPI Comment: All other systems reviewed and negative ED Past Medical Hx - Past Medical History Hx Hypertension: Yes Hx Deep Vein Thrombosis: Yes Hx Sickle Cell Disease: Yes Hx Tuberculosis: Yes - Surgical History Hx Cholecystectomy: Yes Additional Surgical History: csection x1,. port R chest - Social History Smoking Status: Never Smoker Substance Use Type: Alcohol - Medications Home Medications: Home Medications Medication Instructions Recorded Confirmed Last Taken Type Metoprolol [Lopressor TAB] 100 mg PO BID 01/16/13 10/11/16 10/11/16 History Lisinopril [Zestril TAB] 10 mg PO QDAY 09/12/15 10/11/16 10/11/16 History Folic Acid [Folvite] 1 mg PO QDAY 10/28/15 10/11/16 10/11/16 History Ketorolac [Toradol] 10 mg PO Q6H PRN #20 tablet 07/12/16 10/11/16 10/11/16 Rx Ondansetron [Zofran Odt] 4 mg PO QID PRN #20 tab.rapdis 07/12/16 10/11/16 Rx Vit Calc,Iron,Folic 1 each PO QDAY #30 tablet 07/12/16 10/11/16 Rx [ Vitamins] HYDROcodone/APAP 5-325 [[place] 1 each PO Q6HR PRN #5 tablet 08/30/16 10/11/1611/20 Rx 5/325] Oxycodone HCl/Acetaminophen 1 each PO Q6HR PRN #10 tablet 10/11/16 Unknown Rx [Percocet 10/325 mg] traMADol [Ultram] 50 mg PO Q4HR PRN #20 tablet 06/06/17 Unknown Rx ED Physical Exam - General Limitations: No Limitations General appearance: alert, in no apparent distress, other (the patient is in no distress listening to her cell phone on my encounter) - Head Head exam: Present: atraumatic, normocephalic - Eye Eye exam: Present: normal appearance. Absent: scleral icterus - ENT ENT exam: Present: mucous membranes moist - Neck Neck exam: Present: normal inspection - Respiratory Respiratory exam: Present: normal lung sounds bilaterally, other (patient has a port). Absent: respiratory distress - Cardiovascular Cardiovascular Exam: Present: regular rate, normal rhythm. Absent: systolic murmur, diastolic murmur, rubs, gallop - GI/Abdominal GI/Abdominal exam: Present: soft, normal bowel sounds. Absent: distended, tenderness, guarding, rebound, rigid - Extremities Exam Extremities exam: Present: normal inspection - Back Exam Back exam: Present: normal inspection. Absent: muscle spasm, paraspinal tenderness, vertebral tenderness - Neurological Exam Neurological exam: Present: alert, oriented X3, CN II-XII intact. Absent: motor sensory deficit - Psychiatric Psychiatric exam: Present: normal affect, normal mood - Skin Skin exam: Present: warm, dry, intact, normal color. Absent: rash ED Course Vital Signs 06/06/17 13:21 Temperature 98.9 F Pulse Rate 89 Respiratory 18 Rate Blood Pressure 154/121 O2 Sat by Pulse 100 Oximetry - Reevaluation(s) Reevaluation #1: This is the third recent emergency department visit for chronic pain. 2 previous reticulocyte counts for about 1.5. I do not think this could be reconciled with an acute sickle cell crisis. The patient is unfortunately non- receptive to chronic pain management in an appropriate setting. She will be given one dose of analgesia as site check her labs. Her blood pressure needs to be rechecked as well and that will be addressed. 06/06/17 14:31 ED Medical Decision Making - Lab Data Result diagrams: 06/06/17 14:44 06/06/17 14:44 Laboratory Results - last 24 hr 06/06/17 06/06/17 14:44 14:44 WBC 6.9 RBC 4.10 Hgb 8.8 L Hct 27.6 L MCV 67 L MCH 22 L MCHC 32 RDW 19.9 H Plt Count 349 Lymph % (Auto) 39.2 H [place] % (Auto) 10.0 H Eos % (Auto) 3.8 Baso % (Auto) 1.9 H Lymph # 2.7 [place] # 0.7 Eos # 0.3 Baso # 0.1 Seg Neutrophils % 45.1 Seg Neutrophils # 3.1 Percent Retic 2.25 Sodium 135 L Potassium 4.2 Chloride 102.7 Carbon Dioxide 22 Anion Gap 15 BUN 10 Creatinine 0.6 L Estimated GFR > 60 BUN/Creatinine Ratio 17 Glucose 89 Calcium 10.6 H Critical care attestation.: If time is entered above; I have spent that time in minutes in the direct care of this critically ill patient, excluding procedure time. ED Disposition Clinical Impression: Chronic pain Qualifiers: Chronic pain type: chronic pain syndrome Qualified Code(s): G89.4 - Chronic pain syndrome Sickle cell disease Qualifiers: Sickle-cell associated disorders: without crisis Qualified Code(s): D57.1 - Sickle-cell disease without crisis Disposition: DC-01 TO HOME OR SELFCARE Is pt being admited?: No Does the pt Need Aspirin: No Condition: Stable Instructions: Chronic Pain (ED), Sickle Cell Crisis (ED) Additional Instructions: Her blood work did not show evidence of a sickle cell crisis again today. This is the third pain management visits since the without laboratory evidence of sickle cell crisis. Chronic pain management is indicated. See your director skills. Prescriptions: traMADol [Ultram] 50 mg PO Q4HR PRN #20 tablet PRN Reason: Pain Referrals: PRIMARY CARE, [Primary Care Provider] - 3-5 Days Time of Disposition: 15:39
[2017-06-06 14:51] LABS: Basophils # (Auto) 0.1 K/mm3 (0.0-0.1); Basophils % (Auto) 1.9 % (0.0-1.8); Eosinophils # (Auto) 0.3 K/mm3 (0.0-0.4); Eosinophils % (Auto) 3.8 % (0.0-4.3); Hematocrit 27.6 % (30.3-42.9); Hemoglobin 8.8 gm/dl (10.1-14.3); Lymphocytes # (Auto) 2.7 K/mm3 (1.2-5.4); Lymphocytes % (Auto) 39.2 % (13.4-35.0); Mean Corpuscular HGB Conc 32 % (30-34); Monocytes # (Auto) 0.7 K/mm3 (0.0-0.8); Platelet Count 349 K/mm3 (140-440); Red Cell Distribution Width 19.9 % (13.2-15.2)
[2017-06-06 14:55] LABS: Mean Corpuscular Hemoglobin 22 pg (28-32); Mean Corpuscular Volume 67 fl (79-97)
[2017-06-06 15:09] LABS: BUN/Creatinine Ratio 17; Blood Urea Nitrogen 10 mg/dL (7-17); Calcium 10.6 mg/dL (8.4-10.2)
[2017-06-06 15:10] LABS: Hemolysis Index 10
[2017-06-06] MEDS ORDERED: FLUSH HEPARIN IV ONE (15:43)
== END 2017-06-06 16:17 | disposition home or self-care (01) ==
LOC: ED 13:13
DX: D57.1 Sickle-cell disease without crisis (principal); I10 Essential (primary) hypertension; Z88.6 Allergy status to analgesic agent; Z88.1 Allergy status to other antibiotic agents; Z88.2 Allergy status to sulfonamides
CPT/HCPCS: 36415; 80048; 85025; 85045; 96374; 96375; 99283; J1170; J1200; J1642; J2405

== ENCOUNTER → 2017-06-28 03:52 | Emergency (ER) | payer MEDICARE | END | disposition left against medical advice (07) | LOC: ED 03:52 | DX: D57.1 Sickle-cell disease without crisis (principal); Z53.21 Procedure and treatment not carried out due to patient leaving prior to being seen by health care provider ==

== ENCOUNTER 2017-07-13 02:08 | Emergency (ER) | payer MEDICARE ==
[2017-07-13] MEDS ORDERED: ZOFRAN ODT ONE (02:52)
[2017-07-13] MEDS ORDERED: ZOFRAN ODT PO ONE (02:52)
[2017-07-13] MEDS ORDERED: TORADOL IM ONE (08:32)
--- NOTE | 2017-07-13 08:36 | Emergency Department Report ---
ED General Adult HPI - General Chief complaint: Sickle Cell Crisis Stated complaint: SICKLE CELL Time Seen by Provider: 07/13/17 08:17 Source: patient Mode of arrival: Ambulatory Limitations: No Limitations - History of Present Illness Initial comments: Patient is a 42 years old female with history of sickle cell crisis, frequent admission to the ER for generalized body pain. Patient stated that her pain started last night it mainly in her pelvic area. Patient denied any fever, chills, cough or chest pain. Patient stated that she took Percocet and Motrin but no relief. -: Last night Location: pelvis Severity scale (0 -10): 7 Quality: sharp Consistency: constant - Related Data Home Medications Medication Instructions Recorded Confirmed Last Taken Metoprolol [Lopressor TAB] 100 mg PO BID 01/16/13 10/11/16 10/11/16 Lisinopril [Zestril TAB] 10 mg PO QDAY 09/12/15 10/11/16 10/11/16 Folic Acid [Folvite] 1 mg PO QDAY 10/28/15 10/11/16 10/11/16 Previous Rx's Medication Instructions Recorded Last Taken Type Ketorolac [Toradol] 10 mg PO Q6H PRN #20 tablet 07/12/16 10/11/16 Rx Ondansetron [Zofran Odt] 4 mg PO QID PRN #20 tab.rapdis 07/12/16 10/11/16 Rx Vit Calc,Iron,Folic 1 each PO QDAY #30 tablet 07/12/16 10/11/16 Rx [ Vitamins] HYDROcodone/APAP 5-325 [[place] 1 each PO Q6HR PRN #5 tablet 08/30/16 10/11/16 Rx 5/325] Oxycodone HCl/Acetaminophen 1 each PO Q6HR PRN #10 tablet 10/11/16 Unknown Rx [Percocet 10/325 mg] traMADol [Ultram] 50 mg PO Q4HR PRN #20 tablet 06/06/17 Unknown Rx Allergies Allergy/AdvReac Type Severity Reaction Status Date / Time hydralazine [Hydralazine] Allergy Unknown Verified 06/06/17 13:21 hydroxyurea Allergy Unknown Verified 06/06/17 13:21 morphine Allergy Shortness Verified 06/06/17 13:21 of Breath nalbuphine HCl [From Nubain] Allergy Unknown Verified 06/06/17 13:21 sulfamethoxazole Allergy Unknown Verified 06/06/17 13:21 [From Bactrim] trimethoprim [From Bactrim] Allergy Unknown Verified 06/06/17 13:21 ED Review of Systems ROS: Stated complaint: SICKLE CELL Other details as noted in HPI Comment: All other systems reviewed and negative Constitutional: denies: chills, fever Respiratory: denies: cough Cardiovascular: denies: chest pain, palpitations, dyspnea on exertion, orthopnea , edema, syncope Gastrointestinal: denies: abdominal pain, nausea, vomiting, diarrhea, constipation, hematemesis, melena, hematochezia Genitourinary: denies: urgency, dysuria, frequency, hematuria Neurological: denies: headache, weakness, numbness, paresthesias ED Past Medical Hx - Past Medical History Previous Medical History?: Yes Hx Hypertension: Yes Hx Deep Vein Thrombosis: Yes Hx Sickle Cell Disease: Yes Hx Tuberculosis: Yes - Surgical History Past Surgical History?: Yes Hx Cholecystectomy: Yes Additional Surgical History: csection x1,. port R chest - Social History Smoking Status: Never Smoker Substance Use Type: None - Medications Home Medications: Home Medications Medication Instructions Recorded Confirmed Last Taken Type Metoprolol [Lopressor TAB] 100 mg PO BID 01/16/13 10/11/16 10/11/16 History Lisinopril [Zestril TAB] 10 mg PO QDAY 09/12/15 10/11/16 10/11/16 History Folic Acid [Folvite] 1 mg PO QDAY 10/28/15 10/11/16 10/11/16 History Ketorolac [Toradol] 10 mg PO Q6H PRN #20 tablet 07/12/16 10/11/16 10/11/16 Rx Ondansetron [Zofran Odt] 4 mg PO QID PRN #20 tab.rapdis 07/12/16 10/11/16 Rx Vit Calc,Iron,Folic 1 each PO QDAY #30 tablet 07/12/16 10/11/16 Rx [ Vitamins] HYDROcodone/APAP 5-325 [[place] 1 each PO Q6HR PRN #5 tablet 08/30/16 10/11/1611/20 Rx 5/325] Oxycodone HCl/Acetaminophen 1 each PO Q6HR PRN #10 tablet 10/11/16 Unknown Rx [Percocet 10/325 mg] traMADol [Ultram] 50 mg PO Q4HR PRN #20 tablet 06/06/17 Unknown Rx ED Physical Exam - General Limitations: No Limitations General appearance: alert, in no apparent distress, other (patient sitting in bed in no acute distress.) - Head Head exam: Present: atraumatic, normocephalic, normal inspection - Eye Eye exam: Present: normal appearance, PERRL - ENT ENT exam: Present: normal exam, normal orophraynx, mucous membranes moist - Neck Neck exam: Present: normal inspection, full ROM. Absent: tenderness, meningismus, lymphadenopathy, thyromegaly - Respiratory Respiratory exam: Present: normal lung sounds bilaterally. Absent: respiratory distress, wheezes, rales, rhonchi, stridor, chest wall tenderness, accessory muscle use, decreased breath sounds, prolonged expiratory - Cardiovascular Cardiovascular Exam: Present: regular rate, normal rhythm, normal heart sounds - GI/Abdominal GI/Abdominal exam: Present: soft, normal bowel sounds. Absent: distended, tenderness, guarding, rebound, rigid, organomegaly, mass, bruit, pulsatile mass , hernia - Extremities Exam Extremities exam: Present: normal inspection, full ROM, normal capillary refill - Back Exam Back exam: Present: normal inspection, full ROM. Absent: tenderness, CVA tenderness (R), CVA tenderness (L), muscle spasm, paraspinal tenderness, vertebral tenderness - Neurological Exam Neurological exam: Present: alert, oriented X3, CN II-XII intact, normal gait - Skin Skin exam: Present: warm, intact, normal color ED Course Vital Signs 07/13/17 07/13/17 02:30 08:17 Temperature 98.4 F 98.8 F Pulse Rate 70 63 Respiratory 17 18 Rate Blood Pressure 153/111 Blood Pressure 165/102 [Left] Blood Pressure 165/102 [Right] O2 Sat by Pulse 100 95 Oximetry ED Medical Decision Making - Medical Decision Making I reviewed patient previous medical record. Patient obviously had an issue is chronic pain management. Patient is requesting Dilaudid and Benadryl for her pain. Patient clinically does not look in any pain since patient is watching TV comfortably and playing on her iPhone in no distress. Patient is refusing blood work until she got Dilaudid. I explained to the patient thoroughly her condition and the need to follow-up with pain clinic. I politely informed the patient that I'll not be able to give Dilaudid with Benadryl because is clinically not indicated at this time. Patient elected to leave the ER and follow-up with her primary care physician. Critical care attestation.: If time is entered above; I have spent that time in minutes in the direct care of this critically ill patient, excluding procedure time. ED Disposition Clinical Impression: Chronic pain Disposition: DC-01 TO HOME OR SELFCARE Is pt being admited?: No Condition: Stable Instructions: Chronic Pain (ED) Referrals: ABDULAZIZ ANDRADE [Other] - 3-5 Days
[2017-07-13 09:54] VITALS: BP 165/90
== END 2017-07-13 09:25 | disposition left against medical advice (07) ==
LOC: ED 02:08
DX: G89.29 Other chronic pain (principal); R10.2 Pelvic and perineal pain; M79.1 Myalgia; D57.1 Sickle-cell disease without crisis; I10 Essential (primary) hypertension; Z86.11 Personal history of tuberculosis; Z90.49 Acquired absence of other specified parts of digestive tract; Z88.8 Allergy status to other drugs, medicaments and biological substances; Z88.2 Allergy status to sulfonamides; Z88.5 Allergy status to narcotic agent
CPT/HCPCS: 99283; Q0162

== ENCOUNTER 2017-08-03 11:13 | Emergency (ER) | payer MEDICARE ==
[2017-08-03 11:48] VITALS: BP 161/94
== END 2017-08-03 12:30 | disposition left against medical advice (07) ==
LOC: ED 11:13
DX: D57.1 Sickle-cell disease without crisis (principal); Z53.21 Procedure and treatment not carried out due to patient leaving prior to being seen by health care provider

== ENCOUNTER 2017-08-16 10:51 | Emergency (ER) | payer MEDICARE ==
--- NOTE | 2017-08-16 11:57 | Emergency Department Report ---
ED General Adult HPI - General Chief complaint: Sickle Cell Crisis Stated complaint: SICKLE CELL Time Seen by Provider: 08/16/17 11:57 Source: patient Mode of arrival: Ambulatory Limitations: No Limitations - History of Present Illness Initial comments: Patient's is unknown frequent flier to the emergency room with complaints of body pains. Patient has a history of sickle cell disease. She came into the ER complaining of chronic right hip pain which has been ongoing for years. She has had multiple x-rays and MRI of the right hip which did not show any avascular necrosis. She states she is here to get IV Dilaudid. Patient demanded IV Dilaudid and Benadryl saying that is the only thing that takes away the pain. -: year(s) Location: right, lower extremity Radiation: non-radiation Severity scale (0 -10): 8 Quality: sharp Consistency: intermittent Improves with: medication (IV Dilaudid) Worsens with: none Associated Symptoms: denies: chest pain, cough, diaphoresis, fever/chills, headaches, nausea/vomiting, shortness of breath Treatments Prior to Arrival: none - Related Data Home Medications Medication Instructions Recorded Confirmed Last Taken Metoprolol [Lopressor TAB] 100 mg PO BID 01/16/13 10/11/16 10/11/16 Lisinopril [Zestril TAB] 10 mg PO QDAY 09/12/15 10/11/16 10/11/16 Folic Acid [Folvite] 1 mg PO QDAY 10/28/15 10/11/16 10/11/16 Previous Rx's Medication Instructions Recorded Last Taken Type Ketorolac [Toradol] 10 mg PO Q6H PRN #20 tablet 07/12/16 10/11/16 Rx Ondansetron [Zofran Odt] 4 mg PO QID PRN #20 tab.rapdis 07/12/16 10/11/16 Rx Vit Calc,Iron,Folic 1 each PO QDAY #30 tablet 07/12/16 10/11/16 Rx [ Vitamins] HYDROcodone/APAP 5-325 [[place] 1 each PO Q6HR PRN #5 tablet 08/30/16 10/11/16 Rx 5/325] Oxycodone HCl/Acetaminophen 1 each PO Q6HR PRN #10 tablet 10/11/16 Unknown Rx [Percocet 10/325 mg] traMADol [Ultram] 50 mg PO Q4HR PRN #20 tablet 06/06/17 Unknown Rx Allergies Allergy/AdvReac Type Severity Reaction Status Date / Time hydralazine [Hydralazine] Allergy Unknown Verified 06/06/17 13:21 hydroxyurea Allergy Unknown Verified 06/06/17 13:21 morphine Allergy Shortness Verified 06/06/17 13:21 of Breath nalbuphine HCl [From Nubain] Allergy Unknown Verified 06/06/17 13:21 sulfamethoxazole Allergy Unknown Verified 06/06/17 13:21 [From Bactrim] trimethoprim [From Bactrim] Allergy Unknown Verified 06/06/17 13:21 ED Review of Systems ROS: Stated complaint: SICKLE CELL Other details as noted in HPI Comment: All other systems reviewed and negative Constitutional: denies: chills, fever Eyes: denies: eye pain, vision change ENT: denies: ear pain, dental pain Respiratory: denies: cough, shortness of breath, SOB with exertion Cardiovascular: denies: chest pain, palpitations, dyspnea on exertion Endocrine: no symptoms reported Gastrointestinal: denies: abdominal pain, nausea, vomiting, diarrhea Genitourinary: denies: urgency, dysuria, frequency Musculoskeletal: other (Right hip pain). denies: back pain, joint swelling Skin: denies: rash, change in color Neurological: denies: headache, numbness, paresthesias Psychiatric: denies: anxiety, depression, auditory hallucinations Hematological/Lymphatic: denies: easy bleeding, easy bruising ED Past Medical Hx - Past Medical History Hx Hypertension: Yes Hx Deep Vein Thrombosis: Yes Hx Sickle Cell Disease: Yes Hx Tuberculosis: Yes - Surgical History Hx Cholecystectomy: Yes Additional Surgical History: csection x1,. port R chest - Social History Smoking Status: Never Smoker Substance Use Type: None - Medications Home Medications: Home Medications Medication Instructions Recorded Confirmed Last Taken Type Metoprolol [Lopressor TAB] 100 mg PO BID 01/16/13 10/11/16 10/11/16 History Lisinopril [Zestril TAB] 10 mg PO QDAY 09/12/15 10/11/16 10/11/16 History Folic Acid [Folvite] 1 mg PO QDAY 10/28/15 10/11/16 10/11/16 History Ketorolac [Toradol] 10 mg PO Q6H PRN #20 tablet 07/12/16 10/11/16 10/11/16 Rx Ondansetron [Zofran Odt] 4 mg PO QID PRN #20 tab.rapdis 07/12/16 10/11/16 Rx Vit Calc,Iron,Folic 1 each PO QDAY #30 tablet 07/12/16 10/11/16 Rx [ Vitamins] HYDROcodone/APAP 5-325 [[place] 1 each PO Q6HR PRN #5 tablet 08/30/16 10/11/1611/20 Rx 5/325] Oxycodone HCl/Acetaminophen 1 each PO Q6HR PRN #10 tablet 10/11/16 Unknown Rx [Percocet 10/325 mg] traMADol [Ultram] 50 mg PO Q4HR PRN #20 tablet 06/06/17 Unknown Rx ED Physical Exam - General Limitations: No Limitations General appearance: alert, in no apparent distress - Head Head exam: Present: atraumatic, normocephalic, normal inspection - Eye Eye exam: Present: normal appearance, PERRL, EOMI Pupils: Present: normal accommodation - ENT ENT exam: Present: normal exam, normal orophraynx, mucous membranes moist - Neck Neck exam: Present: normal inspection, full ROM. Absent: tenderness - Respiratory Respiratory exam: Present: normal lung sounds bilaterally. Absent: respiratory distress, wheezes - Cardiovascular Cardiovascular Exam: Present: regular rate, normal rhythm, normal heart sounds - GI/Abdominal GI/Abdominal exam: Present: soft, normal bowel sounds. Absent: distended, tenderness, guarding, rebound - Extremities Exam Extremities exam: Present: normal inspection, full ROM, normal capillary refill. Absent: tenderness - Back Exam Back exam: Present: normal inspection, full ROM. Absent: tenderness - Neurological Exam Neurological exam: Present: alert, oriented X3, CN II-XII intact - Psychiatric Psychiatric exam: Present: normal affect, normal mood - Skin Skin exam: Present: warm, dry, intact, normal color ED Course Vital Signs 08/16/17 08/16/17 11:18 12:01 Temperature 98.5 F Pulse Rate 68 Respiratory 18 Rate Blood Pressure 146/104 133/102 O2 Sat by Pulse 96 Oximetry - Reevaluation(s) Reevaluation #1: 08/16/17 19:21 Patient received 2 doses of IV Dilaudid in the emergency room with1 dose of IV Benadryl. She then said she wants to go home and she doesn't want to stay longer in the emergency room. She signed then left AGAINST MEDICAL ADVICE. I explained to her the risk she was taking which is severe medical disability or . He verbalizes understanding the risks but she still insisted on signing the AGAINST MEDICAL ADVICE and left. I encouraged her to come back to the emergency room if she changes her mind. ED Medical Decision Making - Lab Data Result diagrams: 08/16/17 13:20 08/16/17 Unknown - Radiology Data Radiology results: report reviewed - Medical Decision Making Chronic Right Hip Pain. Sickle Cell Pain Crisis. Critical care attestation.: If time is entered above; I have spent that time in minutes in the direct care of this critically ill patient, excluding procedure time. ED Disposition Clinical Impression: Sickle cell crisis, Sickle cell pain crisis, Chronic right hip pain Disposition: DC-07 LEFT AGAINST MED ADVICE Is pt being admited?: No Does the pt Need Aspirin: No Condition: Stable Referrals: PRIMARY CARE, [Primary Care Provider] - 3-5 Days
[2017-08-16 12:08] VITALS: BP 133/102
[2017-08-16] MEDS ORDERED: BENADRYL IV ONE (12:33)
[2017-08-16] MEDS ORDERED: DILAUDID IV ONE ×2 (12:33→14:41)
[2017-08-16 13:56] LABS: BUN/Creatinine Ratio 20; Blood Urea Nitrogen 14 mg/dL (7-17); Calcium 10.5 mg/dL (8.4-10.2); Hemolysis Index 1
[2017-08-16 13:58] LABS: Hematocrit 27.2 % (30.3-42.9); Hemoglobin 8.9 gm/dl (10.1-14.3); Mean Corpuscular HGB Conc 33 % (30-34); Mean Corpuscular Hemoglobin 21 pg (28-32); Mean Corpuscular Volume 63 fl (79-97); Mean Platelet Volume 8.6 fl (6-12); Platelet Count 349 K/mm3 (140-440); Red Blood Count 4.29 M/mm3 (3.65-5.03); Red Cell Distribution Width 23.1 % (13.2-15.2)
[2017-08-16] MEDS ORDERED: FLUSH HEPARIN IV ONE (14:58)
== END 2017-08-16 15:15 | disposition left against medical advice (07) ==
LOC: ED 10:51
DX: D57.00 Hb-SS disease with crisis, unspecified (principal); G89.29 Other chronic pain; Z90.49 Acquired absence of other specified parts of digestive tract; Z86.718 Personal history of other venous thrombosis and embolism; Z86.11 Personal history of tuberculosis; Z88.5 Allergy status to narcotic agent; Z88.8 Allergy status to other drugs, medicaments and biological substances
CPT/HCPCS: 36415; 80048; 85027; 85045; 96374; 96375; 96376; 99283; J1170; J1200; J1642

== ENCOUNTER 2017-08-18 20:16 | Emergency (ER) | payer MEDICARE ==
[2017-08-18 21:05] VITALS: BP 171/110
== END 2017-08-19 04:36 | disposition left against medical advice (07) ==
LOC: ED 20:16
DX: M79.604 Pain in right leg (principal); Z53.21 Procedure and treatment not carried out due to patient leaving prior to being seen by health care provider

== ENCOUNTER 2017-08-29 22:12 | Emergency (ER) | payer MEDICARE ==
[2017-08-29] MEDS ORDERED: D5NS 0.2% 1,000 ML IV SCH (23:00)
[2017-08-30 03:25] VITALS: BP 171/98
[2017-08-30] MEDS ORDERED: DILAUDID IV ONE ×2 (03:35→05:12)
[2017-08-30] MEDS ORDERED: BENADRYL IV ONE (03:35)
--- NOTE | 2017-08-30 03:36 | Emergency Department Report ---
ED General Adult HPI - General Chief complaint: Sickle Cell Crisis Stated complaint: SICKLE CELL Time Seen by Provider: 08/30/17 03:00 Source: patient Mode of arrival: Ambulatory Limitations: No Limitations - History of Present Illness Initial comments: Patient with history of sickle cell disease is on morphine and Percocet at home as well as Motrin she says her home and stop working she came to given parenteral analgesics for acute sickle cell crisis pain. She denied chest pain she thinks she did come down with the recent URI but denies fever or chills or swelling no shortness of breath she is here for evaluation of acute vaso- occlusive crisis pain similar to previous denied fever chest pain or other problems mild nonproductive cough that she thinks is to a virus stiff neck no headache no rash no productive sputum or difficulty breathing -: Gradual, hour(s), days(s) Radiation: non-radiation, back, extremity Severity scale (0 -10): 10 Quality: aching Consistency: intermittent Improves with: none Worsens with: none Associated Symptoms: denies other symptoms, cough. denies: confusion, chest pain, diaphoresis, fever/chills, headaches, loss of appetite, malaise, nausea/ vomiting, rash, seizure, shortness of breath, syncope, weakness - Related Data Home Medications Medication Instructions Recorded Confirmed Last Taken Metoprolol [Lopressor TAB] 100 mg PO BID 01/16/13 10/11/16 10/11/16 Lisinopril [Zestril TAB] 10 mg PO QDAY 09/12/15 10/11/16 10/11/16 Folic Acid [Folvite] 1 mg PO QDAY 10/28/15 10/11/16 10/11/16 Previous Rx's Medication Instructions Recorded Last Taken Type Ketorolac [Toradol] 10 mg PO Q6H PRN #20 tablet 07/12/16 10/11/16 Rx Ondansetron [Zofran Odt] 4 mg PO QID PRN #20 tab.rapdis 07/12/16 10/11/16 Rx Vit Calc,Iron,Folic 1 each PO QDAY #30 tablet 07/12/16 10/11/16 Rx [ Vitamins] HYDROcodone/APAP 5-325 [[place] 1 each PO Q6HR PRN #5 tablet 05/27/17 07/08/17 Rx 5/325] Oxycodone HCl/Acetaminophen 1 each PO Q6HR PRN #10 tablet 10/11/16 Unknown Rx [Percocet 10/325 mg] traMADol [Ultram] 50 mg PO Q4HR PRN #20 tablet 06/06/17 Unknown Rx Allergies Allergy/AdvReac Type Severity Reaction Status Date / Time hydralazine [Hydralazine] Allergy Unknown Verified 06/06/17 13:21 hydroxyurea Allergy Unknown Verified 06/06/17 13:21 morphine Allergy Shortness Verified 06/06/17 13:21 of Breath nalbuphine HCl [From Nubain] Allergy Unknown Verified 06/06/17 13:21 sulfamethoxazole Allergy Unknown Verified 06/06/17 13:21 [From Bactrim] trimethoprim [From Bactrim] Allergy Unknown Verified 06/06/17 13:21 ED Review of Systems ROS: Stated complaint: SICKLE CELL Other details as noted in HPI Comment: All other systems reviewed and negative Constitutional: denies: diaphoresis, fever, malaise Eyes: denies: eye discharge, vision change ENT: denies: dental pain, hearing loss, epistaxis Respiratory: cough. denies: orthopnea, shortness of breath, SOB with exertion, SOB at rest, stridor, wheezing Cardiovascular: denies: chest pain, palpitations, dyspnea on exertion, orthopnea , edema, syncope Gastrointestinal: denies: abdominal pain, nausea, vomiting, diarrhea, constipation, hematemesis, melena, hematochezia Musculoskeletal: back pain, arthralgia, myalgia Neurological: denies: headache, weakness, numbness, paresthesias, confusion, abnormal gait, vertigo ED Past Medical Hx - Past Medical History Previous Medical History?: Yes Hx Hypertension: Yes Hx Deep Vein Thrombosis: Yes Hx Sickle Cell Disease: Yes Hx Tuberculosis: Yes - Surgical History Past Surgical History?: Yes Hx Cholecystectomy: Yes Additional Surgical History: x1,. port R chest - Social History Smoking Status: Never Smoker Substance Use Type: None - Medications Home Medications: Home Medications Medication Instructions Recorded Confirmed Last Taken Type Metoprolol [Lopressor TAB] 100 mg PO BID 01/16/13 10/11/16 10/11/16 History Lisinopril [Zestril TAB] 10 mg PO QDAY 09/12/15 10/11/16 10/11/16 History Folic Acid [Folvite] 1 mg PO QDAY 10/28/15 10/11/16 10/11/16 History Ketorolac [Toradol] 10 mg PO Q6H PRN #20 tablet 07/12/16 10/11/16 10/11/16 Rx Ondansetron [Zofran Odt] 4 mg PO QID PRN #20 tab.rapdis 07/12/16 10/11/16 Rx Vit Calc,Iron,Folic 1 each PO QDAY #30 tablet 07/12/16 10/11/16 Rx [ Vitamins] HYDROcodone/APAP 5-325 [[place] 1 each PO Q6HR PRN #5 tablet 08/30/16 10/11/1611/20 Rx 5/325] Oxycodone HCl/Acetaminophen 1 each PO Q6HR PRN #10 tablet 10/11/16 Unknown Rx [Percocet 10/325 mg] traMADol [Ultram] 50 mg PO Q4HR PRN #20 tablet 06/06/17 Unknown Rx ED Physical Exam - General Limitations: No Limitations General appearance: alert, anxious - Head Head exam: Present: atraumatic, normocephalic - Eye Eye exam: Present: normal appearance, PERRL, EOMI - ENT ENT exam: Present: normal exam, normal orophraynx - Neck Neck exam: Present: normal inspection. Absent: tenderness, meningismus - Respiratory Respiratory exam: Present: normal lung sounds bilaterally. Absent: respiratory distress, wheezes, rales, rhonchi, stridor, chest wall tenderness, accessory muscle use, decreased breath sounds, prolonged expiratory - Cardiovascular Cardiovascular Exam: Present: regular rate, normal rhythm, normal heart sounds. Absent: bradycardia, tachycardia, irregular rhythm - GI/Abdominal GI/Abdominal exam: Present: soft. Absent: distended, tenderness, guarding, rebound, rigid, mass, pulsatile mass - Extremities Exam Extremities exam: Present: normal inspection, full ROM, normal capillary refill , other (No red or swollen joints no calf pain or swelling). Absent: pedal edema, joint swelling, calf tenderness - Back Exam Back exam: Present: normal inspection - Neurological Exam Neurological exam: Present: alert, oriented X3, CN II-XII intact. Absent: motor sensory deficit - Skin Skin exam: Absent: cyanosis, diaphoretic, erythema, urticaria, vesicles, petechiae ED Course Vital Signs 08/29/17 08/30/17 22:29 03:24 Temperature 98.9 F 98.0 F Pulse Rate 77 85 Respiratory 20 18 Rate Blood Pressure 157/100 Blood Pressure 157/100 171/98 [Right] O2 Sat by Pulse 99 95 Oximetry ED Medical Decision Making - Lab Data Result diagrams: 08/29/17 04:06 08/30/17 04:06 - Medical Decision Making Patient is nontoxic she is afebrile without a stiff neck and no chest pain she is here for pain control for acute vaso-occlusive crisis she was improved in the ED and still for outpatient follow-up she does have pain medication to take at home H&H was stable to reticcount is at baseline Critical care attestation.: If time is entered above; I have spent that time in minutes in the direct care of this critically ill patient, excluding procedure time. ED Disposition Clinical Impression: Sickle cell pain crisis Disposition: -01 TO HOME OR SELFCARE Is pt being admited?: No Condition: Stable Instructions: Sickle Cell Crisis (ED) Additional Instructions: Trauma nor alarming symptoms or call 911 [facility] permanent mold supervisor or the doctor listed or her regular doctor in 2 days Referrals: PRIMARY CARE, [Primary Care Provider] - 3-5 Days Time of Disposition: 05:19
[2017-08-30 04:27] LABS: Hemoglobin 8.3 gm/dl (10.1-14.3); Mean Corpuscular HGB Conc 33 % (30-34); Platelet Count 325 K/mm3 (140-440); Red Blood Count 4.03 M/mm3 (3.65-5.03)
[2017-08-30 04:40] LABS: BUN/Creatinine Ratio 18; Blood Urea Nitrogen 11 mg/dL (7-17); Calcium 10.1 mg/dL (8.4-10.2); Hemolysis Index 11
[2017-08-30 04:45] LABS: Mean Corpuscular Hemoglobin 21 pg (28-32); Mean Corpuscular Volume 62 fl (79-97); Red Cell Distribution Width 21.9 % (13.2-15.2)
[2017-08-30 05:26] LABS: Band Neutrophils # (Manual) 0.8 K/mm3; Basophils % (Manual) 0 % (0.0-1.8); Total Cells Counted 100
[2017-08-30 05:32] LABS: Anisocytosis 1+; Hypochromasia 1+; Sickle Cells 1+; Target Cells 2+
[2017-08-30 05:33] LABS: Platelet Estimate Consistent w Auto
[2017-08-30] MEDS ORDERED: FLUSH HEPARIN IV ONE (05:35)
== END 2017-08-30 05:56 | disposition home or self-care (01) ==
LOC: ED 22:12
DX: D57.219 Sickle-cell/Hb-C disease with crisis, unspecified (principal); I10 Essential (primary) hypertension; Z88.5 Allergy status to narcotic agent; Z88.2 Allergy status to sulfonamides; Z86.718 Personal history of other venous thrombosis and embolism; Z90.49 Acquired absence of other specified parts of digestive tract
CPT/HCPCS: 36415; 80048; 85007; 85025; 85045; 96365; 96366; 96375; 99283; J1170; J1200; J1642

== ENCOUNTER 2017-10-03 01:23 | Emergency (ER) | payer MEDICARE ==
[2017-10-03] MEDS ORDERED: ASPIRIN PO ONE (01:44)
[2017-10-03] MEDS ORDERED: ZOFRAN IV ONE (06:23)
[2017-10-03] MEDS ORDERED: DILAUDID IV ONE ×2 (06:23→08:08)
--- NOTE | 2017-10-03 06:26 | Emergency Department Report ---
HPI - General Chief Complaint: Chest Pain Time Seen by Provider: 10/03/17 06:13 - HPI HPI: Room 6 The patient is a 42-year-old female presenting with chief complaint chest and back pain. The patient has a history of sickle cell disease and states yesterday she developed left chest pain was aching and pressure-like in nature. Patient complains of pain in her back and pleurisy. The patient states she has shortness of breath associated with her back pain as well as nausea. Patient denies vomiting or diaphoresis. The patient states her pain is constant. Patient denies cough or fever. The patient states her last stress test was several years ago but she has never had a cardiac catheterization Location: Left chest, back Duration: [See above] Quality: Aching/pressure Severity: 01/13 Modifying factors: [see above] Context: [see above] Mode of transportation: [not driving] ED Past Medical Hx - Past Medical History Hx Hypertension: Yes Hx Deep Vein Thrombosis: Yes Hx Sickle Cell Disease: Yes - Surgical History Hx Cholecystectomy: Yes Additional Surgical History: x1,. port R chest - Family History Family history: no significant - Social History Smoking Status: Never Smoker Substance Use Type: None (denies illicit drug use), Alcohol (occasional) - Medications Home Medications: Home Medications Medication Instructions Recorded Confirmed Last Taken Type Metoprolol [Lopressor TAB] 100 mg PO BID 01/16/13 10/11/16 10/11/16 History Lisinopril [Zestril TAB] 10 mg PO QDAY 09/12/15 10/11/16 10/11/16 History Folic Acid [Folvite] 1 mg PO QDAY 10/28/15 10/11/16 10/11/16 History Ketorolac [Toradol] 10 mg PO Q6H PRN #20 tablet 07/12/16 10/11/16 10/11/16 Rx Ondansetron [Zofran Odt] 4 mg PO QID PRN #20 tab.rapdis 07/12/16 10/11/16 Rx Vit Calc,Iron,Folic 1 each PO QDAY #30 tablet 07/12/16 10/11/16 Rx [ Vitamins] HYDROcodone/APAP 5-325 [[place] 1 each PO Q6HR PRN #5 tablet 08/30/16 10/11/1611/20 Rx 5/325] Oxycodone HCl/Acetaminophen 1 each PO Q6HR PRN #10 tablet 10/11/16 Unknown Rx [Percocet 10/325 mg] traMADol [Ultram] 50 mg PO Q4HR PRN #20 tablet 06/06/17 Unknown Rx ED Review of Systems ROS: Stated complaint: SICKLE CELL, CHEST PAIN Other details as noted in HPI Constitutional: chills. denies: diaphoresis Eyes: denies: eye pain ENT: denies: throat pain Respiratory: shortness of breath Cardiovascular: chest pain Gastrointestinal: nausea. denies: abdominal pain, vomiting Genitourinary: denies: dysuria Musculoskeletal: back pain Neurological: headache Physical Exam - Physical Exam Vital Signs: Vital Signs 10/03/17 10/03/17 01:23 04:27 Temperature 98.7 F 98.7 F Pulse Rate 95 H 82 Respiratory 18 16 Rate Blood Pressure 153/99 Blood Pressure 160/111 [Left] O2 Sat by Pulse 100 100 Oximetry Physical Exam: GENERAL: The patient is well-developed well-nourished female lying on stretcher not appearing to be in acute distress. [] HEENT: Normocephalic. Atraumatic. Extraocular motions are intact. Patient has moist mucous membranes. NECK: Supple. Trachea midline CHEST/LUNGS: Clear to auscultation. There is no respiratory distress noted. HEART/CARDIOVASCULAR: Regular. There is no tachycardia. There is no gallop rub or murmur. ABDOMEN: Abdomen is soft, nontender. Patient has normal bowel sounds. There is no abdominal distention. SKIN: There is no rash. There is no edema. There is no diaphoresis. NEURO: The patient is awake, alert, and oriented. The patient is cooperative. The patient has normal speech MUSCULOSKELETAL: There is no evidence of acute injury. ED Course Vital Signs 10/03/17 10/03/17 01:23 04:27 Temperature 98.7 F 98.7 F Pulse Rate 95 H 82 Respiratory 18 16 Rate Blood Pressure 153/99 Blood Pressure 160/111 [Left] O2 Sat by Pulse 100 100 Oximetry ED Medical Decision Making - Lab Data Result diagrams: 10/03/17 07:00 10/03/17 07:00 Laboratory Tests 10/03/17 10/03/17 10/03/17 07:00 07:00 07:00 WBC 14.1 H RBC 4.15 Hgb 8.4 L Hct 26.6 L MCV 64 L MCH 20 L MCHC 32 RDW 21.5 H Plt Count 328 Eos % (Auto) Technology Coach Add Manual Diff Complete Total Counted 100 Seg Neutrophils % Technology Coach Seg Neuts % (Manual) 73.0 H Band Neutrophils % 0 Lymphocytes % (Manual) 13.0 L Reactive Lymphs % (Man) 0 Monocytes % (Manual) 13.0 H Eosinophils % (Manual) 1.0 Basophils % (Manual) 0 Metamyelocytes % 0 Myelocytes % 0 Promyelocytes % 0 Blast Cells % 0 Nucleated RBC % Not Reportable Seg Neutrophils # Man 10.3 H Band Neutrophils # 0.0 Lymphocytes # (Manual) 1.8 Abs React Lymphs (Man) 0.0 Monocytes # (Manual) 1.8 H Eosinophils # (Manual) 0.1 Basophils # (Manual) 0.0 Metamyelocytes # 0.0 Myelocytes # 0.0 Promyelocytes # 0.0 Blast Cells # 0.0 WBC Morphology Not Reportable Hypersegmented Neuts Not Reportable Hyposegmented Neuts Not Reportable Hypogranular Neuts Not Reportable Smudge Cells Not Reportable Toxic Granulation Not Reportable Toxic Vacuolation Not Reportable Dohle Bodies Not Reportable Pelger-Huet Anomaly Not Reportable Pili Rods Not Reportable Platelet Estimate Consistent w auto Clumped Platelets Not Reportable Plt Clumps, EDTA Not Reportable Large Platelets Not Reportable Giant Platelets Not Reportable Platelet Satelliting Not Reportable Plt Morphology Comment Not Reportable RBC Morphology Not Reportable Dimorphic RBCs Not Reportable Polychromasia Few Hypochromasia 2+ Poikilocytosis 2+ Anisocytosis 2+ Microcytosis 1+ Macrocytosis 1+ Spherocytes Not Reportable Pappenheimer Bodies Not Reportable Sickle Cells 1+ Target Cells 2+ Tear Drop Cells Not Reportable Ovalocytes Few Helmet Cells Not Reportable [place] Bodies Not Reportable [place] Rings Not Reportable [place] Cells Not Reportable Bite Cells Not Reportable Crenated Cell Not Reportable Elliptocytes Few Acanthocytes (Spur) Not Reportable Rouleaux Not Reportable Hemoglobin C Crystals Not Reportable Schistocytes Rare Malaria parasites Not Reportable Percent Retic 1.82 Aron Bodies Not Reportable Hem Pathologist Commnt No Sodium 137 Potassium 4.2 Chloride 103.4 Carbon Dioxide 23 Anion Gap 15 BUN 7 Creatinine 0.5 L Estimated GFR > 60 BUN/Creatinine Ratio 14 Glucose 96 Calcium 10.6 H Troponin T < 0.010 HCG, Qual 10/03/17 07:00 WBC RBC Hgb Hct MCV MCH MCHC RDW Plt Count Eos % (Auto) Add Manual Diff Total Counted Seg Neutrophils % Seg Neuts % (Manual) Band Neutrophils % Lymphocytes % (Manual) Reactive Lymphs % (Man) Monocytes % (Manual) Eosinophils % (Manual) Basophils % (Manual) Metamyelocytes % Myelocytes % Promyelocytes % Blast Cells % Nucleated RBC % Seg Neutrophils # Man Band Neutrophils # Lymphocytes # (Manual) Abs React Lymphs (Man) Monocytes # (Manual) Eosinophils # (Manual) Basophils # (Manual) Metamyelocytes # Myelocytes # Promyelocytes # Blast Cells # WBC Morphology Hypersegmented Neuts Hyposegmented Neuts Hypogranular Neuts Smudge Cells Toxic Granulation Toxic Vacuolation Dohle Bodies Pelger-Huet Anomaly Pili Rods Platelet Estimate Clumped Platelets Plt Clumps, EDTA Large Platelets Giant Platelets Platelet Satelliting Plt Morphology Comment RBC Morphology Dimorphic RBCs Polychromasia Hypochromasia Poikilocytosis Anisocytosis Microcytosis Macrocytosis Spherocytes Pappenheimer Bodies Sickle Cells Target Cells Tear Drop Cells Ovalocytes Helmet Cells [place] Bodies [place] Rings [place] Cells Bite Cells Crenated Cell Elliptocytes Acanthocytes (Spur) Rouleaux Hemoglobin C Crystals Schistocytes Malaria parasites Percent Retic Aron Bodies Hem Pathologist Commnt Sodium Potassium Chloride Carbon Dioxide Anion Gap BUN Creatinine Estimated GFR BUN/Creatinine Ratio Glucose Calcium Troponin T HCG, Qual Negative - EKG Data -: EKG Interpreted by Me EKG shows normal: sinus rhythm Rate: normal - EKG Data When compared to previous EKG there are: previous EKG unavailable Interpretation: nonspecific ST-T wave milan (T-wave inversion in lead 3) - Radiology Data Radiology results: image reviewed (chest x-ray) interpreted by me: Chest x-ray- no focal infiltrate, no pneumothorax VQ scan (read by radiologist)-high probability for PE - Differential Diagnosis ACS, acute chest syndrome, sickle cell pain crisis, PE, GERD Critical care attestation.: If time is entered above; I have spent that time in minutes in the direct care of this critically ill patient, excluding procedure time. ED Disposition Clinical Impression: Chest pain, Pulmonary embolus Disposition: OP ADMIT IP TO THIS HOSP Is pt being admited?: Yes Does the pt Need Aspirin: No Condition: Fair Instructions: Chest Pain (ED) Referrals: PRIMARY CARE,MD [Primary Care Provider] - 3-5 Days Forms: AMA Form Time of Disposition: 10:03 (hospitalist paged)
[2017-10-03] MEDS ORDERED: ASPIRIN ONE (06:46)
[2017-10-03] MEDS ORDERED: BENADRYL IV ONE (06:55)
[2017-10-03 07:24] LABS: Hematocrit 26.6 % (30.3-42.9); Hemoglobin 8.4 gm/dl (10.1-14.3); Mean Corpuscular HGB Conc 32 % (30-34); Platelet Count 328 K/mm3 (140-440); Red Blood Count 4.15 M/mm3 (3.65-5.03)
[2017-10-03 07:25] LABS: Mean Corpuscular Hemoglobin 20 pg (28-32); Mean Corpuscular Volume 64 fl (79-97); Red Cell Distribution Width 21.5 % (13.2-15.2)
[2017-10-03 07:38] LABS: BUN/Creatinine Ratio 14; Blood Urea Nitrogen 7 mg/dL (7-17); Calcium 10.6 mg/dL (8.4-10.2); Hemolysis Index 6
--- NOTE | 2017-10-03 07:44 | XRay Report ---
FINAL REPORT EXAM: XR CHEST 1V AP HISTORY: chest pain TECHNIQUE: AP portable view(s) of the chest obtained. PRIORS: None. FINDINGS: Right chest port catheter terminates in the region of the right atrium. No mediastinal shift. Cardiac silhouette is not enlarged for portable technique. No pneumothorax, effusion, or focal pulmonary opacity identified. No acute skeletal findings. IMPRESSION: No acute pulmonary finding identified. Consider additional imaging for worsening/persistent symptoms.
[2017-10-03 09:13] LABS: Anisocytosis 2+; Basophils % (Manual) 0 % (0.0-1.8); Hypochromasia 2+; Macrocytosis 1+; Ovalocytes Few; Poikilocytosis 2+; Schistocytes Rare; Sickle Cells 1+; Target Cells 2+; Total Cells Counted 100
[2017-10-03 09:14] LABS: Platelet Estimate Consistent w Auto
--- NOTE | 2017-10-03 09:59 | Nuclear Medicine Report ---
VENTILATION/PERFUSION LUNG SCAN: 10/03/17 CLINICAL: Chest pain. Pleurisy TECHNIQUE: 15.0 mCi of xenon-133 was administered by aerosol and 5.0 mCi of technetium 99m MAA was administered intravenously. Comparison is made to a same day chest x-ray. FINDINGS: Inhalation of Xenon gas demonstrates a normal distribution of the activity throughout both lungs. The wash out phases show no significant retention of activity. After injection of Technetium 99m macroaggregated albumin gamma camera imaging of the lungs in multiple projections demonstrates Poor perfusion of the left upper lobe with defects in the posterior apical segment as well as the superior lingular segment and left upper lobe inferior regular segment. Partial perfusion of the posterior apical segment and no perfusion in the lingular segments. IMPRESSION: High probability for pulmonary embolus. CODE PURPLE A verbal report was given to Dr. Manriquez in the emergency department on 10/03/17 at 10:00.
[2017-10-03] MEDS ORDERED: LOVENOX SUB-Q ONE (10:00)
[2017-10-03] MEDS ORDERED: HEPARIN ONE (10:29)
[2017-10-03] MEDS ORDERED: FLUSH HEPARIN IV ONE (10:30)
[2017-10-03] MEDS ORDERED: MORPHINE ONE (10:37)
[2017-10-03] MEDS ORDERED: MORPHINE IV ONE (10:37)
[2017-10-03] MEDS ORDERED: DILAUDID IV PRN ×2 (10:38→10:44)
[2017-10-03] MEDS ORDERED: SODIUM CHLORIDE FLUSH SYRINGE 10 ML IV PRN ×2 (10:38)
[2017-10-03] MEDS ORDERED: TYLENOL PO PRN (10:38)
[2017-10-03] MEDS ORDERED: ZOFRAN IV PRN (10:38)
[2017-10-03] MEDS ORDERED: ULTRAM PO PRN (10:43)
[2017-10-03] MEDS ORDERED: ZOFRAN ODT PO PRN (10:43)
[2017-10-03] MEDS ORDERED: TORADOL PO PRN (10:43)
[2017-10-03] MEDS ORDERED: NORCO 5/325 PO PRN (10:43)
--- NOTE | 2017-10-03 10:44 | History and Physical Report ---
Medications and Allergies Allergies Allergy/AdvReac Type Severity Reaction Status Date / Time hydralazine [Hydralazine] Allergy Unknown Verified 10/03/17 01:38 hydroxyurea Allergy Unknown Verified 10/03/17 01:38 morphine Allergy Shortness Verified 10/03/17 01:38 of Breath nalbuphine HCl [From Nubain] Allergy Unknown Verified 10/03/17 01:38 sulfamethoxazole Allergy Unknown Verified 10/03/17 01:38 [From Bactrim] trimethoprim [From Bactrim] Allergy Unknown Verified 10/03/17 01:38 Home Medications Medication Instructions Recorded Confirmed Last Taken Type Metoprolol [Lopressor TAB] 100 mg PO BID 01/16/13 10/11/16 10/11/16 History Lisinopril [Zestril TAB] 10 mg PO QDAY 09/12/15 10/11/16 10/11/16 History Folic Acid [Folvite] 1 mg PO QDAY 10/28/15 10/11/16 10/11/16 History Ketorolac [Toradol] 10 mg PO Q6H PRN #20 tablet 07/12/16 10/11/16 10/11/16 Rx Ondansetron [Zofran Odt] 4 mg PO QID PRN #20 tab.rapdis 07/12/16 10/11/16 Rx Vit Calc,Iron,Folic 1 each PO QDAY #30 tablet 07/12/16 10/11/16 Rx [ Vitamins] HYDROcodone/APAP 5-325 [[place] 1 each PO Q6HR PRN #5 tablet 08/30/16 10/11/1611/20 Rx 5/325] Oxycodone HCl/Acetaminophen 1 each PO Q6HR PRN #10 tablet 10/11/16 Unknown Rx [Percocet 10/325 mg] traMADol [Ultram] 50 mg PO Q4HR PRN #20 tablet 06/06/17 Unknown Rx Active Meds: Active Medications Acetaminophen (Tylenol) 650 mg PO Q4H PRN PRN Reason: Pain MILD(1-3)/Fever >100.5/HATHAWAY Acetaminophen/Hydrocodone Bitart ([place] 5/325) 1 each PO Q6HR PRN PRN Reason: Pain Atorvastatin Calcium (Lipitor) 40 mg PO QHS MILLA Enoxaparin Sodium (Lovenox) 80 mg 1 mg/kg (80 mg) SUB-Q Q12HR [facility] Folic Acid (Folvite) 1 mg PO QDAY [facility] Hydromorphone HCl (Dilaudid) 0.5 mg IV Q3H PRN PRN Reason: Pain, Moderate (4-6) Ketorolac Tromethamine (Toradol) 10 mg PO Q6H PRN PRN Reason: Pain Stop: 10/08/17 10:42 Lisinopril (Zestril) 10 mg PO QDAY [facility] Metoprolol Tartrate (Lopressor) 100 mg PO BID [facility] Morphine Sulfate (Morphine) 2 mg IV ONCE ONE Stop: 10/03/17 10:38 Ondansetron HCl (Zofran) 4 mg IV Q8H PRN PRN Reason: Nausea And Vomiting Ondansetron HCl (Zofran Odt) 4 mg PO QID PRN PRN Reason: Nausea Sodium Chloride (Sodium Chloride Flush Syringe 10 Ml) 10 ml IV BID [facility] Sodium Chloride (Sodium Chloride Flush Syringe 10 Ml) 10 ml IV PRN PRN PRN Reason: LINE FLUSH Sodium Chloride (Sodium Chloride Flush Syringe 10 Ml) 10 ml IV PRN PRN PRN Reason: LINE FLUSH Tramadol HCl (Ultram) 50 mg PO Q4HR PRN PRN Reason: Pain Exam - Constitutional Vitals: Temp Pulse Resp BP Pulse Ox 98.7 F 82 20 162/113 98 10/03/17 04:27 10/03/17 04:27 10/03/17 08:23 10/03/17 06:12 10/03/17 06:55 Results - Labs CBC & Chem 7: 10/03/17 07:00 10/03/17 07:00 Labs: Laboratory Last Values WBC 14.1 K/mm3 (4.5-11.0) H 10/03/17 07:00 RBC 4.15 M/mm3 (3.65-5.03) 10/03/17 07:00 Hgb 8.4 gm/dl (10.1-14.3) L 10/03/17 07:00 Hct 26.6 % (30.3-42.9) L 10/03/17 07:00 MCV 64 fl (79-97) L 10/03/17 07:00 MCH 20 pg (28-32) L 10/03/17 07:00 MCHC 32 % (30-34) 10/03/17 07:00 RDW 21.5 % (13.2-15.2) H 10/03/17 07:00 Plt Count 328 K/mm3 (140-440) 10/03/17 07:00 Eos % (Auto) Closer On 10/03/17 07:00 Add Manual Diff Complete 10/03/17 07:00 Total Counted 100 10/03/17 07:00 Seg Neutrophils % Closer On 10/03/17 07:00 Seg Neuts % (Manual) 73.0 % (40.0-70.0) H 10/03/17 07:00 Band Neutrophils % 0 % 10/03/17 07:00 Lymphocytes % (Manual) 13.0 % (13.4-35.0) L 10/03/17 07:00 Reactive Lymphs % (Man) 0 % 10/03/17 07:00 Monocytes % (Manual) 13.0 % (0.0-7.3) H 10/03/17 07:00 Eosinophils % (Manual) 1.0 % (0.0-4.3) 10/03/17 07:00 Basophils % (Manual) 0 % (0.0-1.8) 10/03/17 07:00 Metamyelocytes % 0 % 10/03/17 07:00 Myelocytes % 0 % 10/03/17 07:00 Promyelocytes % 0 % 10/03/17 07:00 Blast Cells % 0 % 10/03/17 07:00 Nucleated RBC % Not Reportable 10/03/17 07:00 Seg Neutrophils # Man 10.3 K/mm3 (1.8-7.7) H 10/03/17 07:00 Band Neutrophils # 0.0 K/mm3 10/03/17 07:00 Lymphocytes # (Manual) 1.8 K/mm3 (1.2-5.4) 10/03/17 07:00 Abs React Lymphs (Man) 0.0 K/mm3 10/03/17 07:00 Monocytes # (Manual) 1.8 K/mm3 (0.0-0.8) H 10/03/17 07:00 Eosinophils # (Manual) 0.1 K/mm3 (0.0-0.4) 10/03/17 07:00 Basophils # (Manual) 0.0 K/mm3 (0.0-0.1) 10/03/17 07:00 Metamyelocytes # 0.0 K/mm3 10/03/17 07:00 Myelocytes # 0.0 K/mm3 10/03/17 07:00 Promyelocytes # 0.0 K/mm3 10/03/17 07:00 Blast Cells # 0.0 K/mm3 10/03/17 07:00 WBC Morphology Not Reportable 10/03/17 07:00 Hypersegmented Neuts Not Reportable 10/03/17 07:00 Hyposegmented Neuts Not Reportable 10/03/17 07:00 Hypogranular Neuts Not Reportable 10/03/17 07:00 Smudge Cells Not Reportable 10/03/17 07:00 Toxic Granulation Not Reportable 10/03/17 07:00 Toxic Vacuolation Not Reportable 10/03/17 07:00 Dohle Bodies Not Reportable 10/03/17 07:00 Pelger-Huet Anomaly Not Reportable 10/03/17 07:00 Pili Rods Not Reportable 10/03/17 07:00 Platelet Estimate Consistent w auto 10/03/17 07:00 Clumped Platelets Not Reportable 10/03/17 07:00 Plt Clumps, EDTA Not Reportable 10/03/17 07:00 Large Platelets Not Reportable 10/03/17 07:00 Giant Platelets Not Reportable 10/03/17 07:00 Platelet Satelliting Not Reportable 10/03/17 07:00 Plt Morphology Comment Not Reportable 10/03/17 07:00 RBC Morphology Not Reportable 10/03/17 07:00 Dimorphic RBCs Not Reportable 10/03/17 07:00 Polychromasia Few 10/03/17 07:00 Hypochromasia 2+ 10/03/17 07:00 Poikilocytosis 2+ 10/03/17 07:00 Anisocytosis 2+ 10/03/17 07:00 Microcytosis 1+ 10/03/17 07:00 Macrocytosis 1+ 10/03/17 07:00 Spherocytes Not Reportable 10/03/17 07:00 Pappenheimer Bodies Not Reportable 10/03/17 07:00 Sickle Cells 1+ 10/03/17 07:00 Target Cells 2+ 10/03/17 07:00 Tear Drop Cells Not Reportable 10/03/17 07:00 Ovalocytes Few 10/03/17 07:00 Helmet Cells Not Reportable 10/03/17 07:00 [place] Bodies Not Reportable 10/03/17 07:00 [place] Rings Not Reportable 10/03/17 07:00 [place] Cells Not Reportable 10/03/17 07:00 Bite Cells Not Reportable 10/03/17 07:00 Crenated Cell Not Reportable 10/03/17 07:00 Elliptocytes Few 10/03/17 07:00 Acanthocytes (Spur) Not Reportable 10/03/17 07:00 Rouleaux Not Reportable 10/03/17 07:00 Hemoglobin C Crystals Not Reportable 10/03/17 07:00 Schistocytes Rare 10/03/17 07:00 Malaria parasites Not Reportable 10/03/17 07:00 Percent Retic 1.82 % (0.78-2.58) 10/03/17 07:00 Aron Bodies Not Reportable 10/03/17 07:00 Hem Pathologist Commnt No 10/03/17 07:00 Sodium 137 mmol/L (137-145) 10/03/17 07:00 Potassium 4.2 mmol/L (3.6-5.0) 10/03/17 07:00 Chloride 103.4 mmol/L (98-107) 10/03/17 07:00 Carbon Dioxide 23 mmol/L (22-30) 10/03/17 07:00 Anion Gap 15 mmol/L 10/03/17 07:00 BUN 7 mg/dL (7-17) 10/03/17 07:00 Creatinine 0.5 mg/dL (0.7-1.2) L 10/03/17 07:00 Estimated GFR > 60 ml/min 10/03/17 07:00 BUN/Creatinine Ratio 14 % 10/03/17 07:00 Glucose 96 mg/dL (65-100) 10/03/17 07:00 Calcium 10.6 mg/dL (8.4-10.2) H 10/03/17 07:00 Troponin T < 0.010 ng/mL (0.00-0.029) 10/03/17 07:00 HCG, Qual Negative (Negative) 10/03/17 07:00
[2017-10-03] MEDS ORDERED: LOPRESSOR PO SCH (11:00)
[2017-10-03 11:28] VITALS: BP 158/108
[2017-10-03] MEDS ORDERED: LOVENOX SUB-Q SCH (22:00)
[2017-10-03] MEDS ORDERED: SODIUM CHLORIDE FLUSH SYRINGE 10 ML IV SCH (22:00)
[2017-10-04] MEDS ORDERED: ZESTRIL PO SCH (10:00)
[2017-10-04] MEDS ORDERED: FOLVITE PO SCH (10:00)
--- NOTE | 2017-10-04 17:44 | Event Note ---
Date: 10/03/17 Patient left against Medical Advice
== END 2017-10-03 11:27 | disposition left against medical advice (07) ==
LOC: ED 01:23
DX: I26.99 Other pulmonary embolism without acute cor pulmonale (principal); R07.9 Chest pain, unspecified; I10 Essential (primary) hypertension; D57.00 Hb-SS disease with crisis, unspecified; Z90.49 Acquired absence of other specified parts of digestive tract
CPT/HCPCS: 36415; 71045; 78582; 80048; 84484; 84703; 85007; 85025; 85045; 93005; 93010; 96374; 96375; 96376; 99285; A9540; A9558; J1170; J1200; J1642; J1644; J2405; J2270

== ENCOUNTER 2017-10-07 11:26 | Emergency (ER) | payer MEDICARE ==
[2017-10-07] MEDS ORDERED: D5NS 0.2% 1,000 ML IV SCH (12:00)
[2017-10-07] MEDS ORDERED: DILAUDID IV ONE ×3 (14:26→16:20)
[2017-10-07] MEDS ORDERED: NACL 0.9% 1000 ML 1,000 ML IV ONE (14:26)
[2017-10-07] MEDS ORDERED: ZOFRAN IV ONE (14:26)
[2017-10-07] MEDS ORDERED: BENADRYL IV ONE ×2 (14:27→16:20)
[2017-10-07 15:06] VITALS: BP 165/102
[2017-10-07 15:18] LABS: Hematocrit 26.7 % (30.3-42.9); Hemoglobin 8.4 gm/dl (10.1-14.3); Mean Corpuscular HGB Conc 32 % (30-34); Platelet Count 387 K/mm3 (140-440)
[2017-10-07 15:25] LABS: Mean Corpuscular Hemoglobin 20 pg (28-32); Mean Corpuscular Volume 64 fl (79-97); Red Cell Distribution Width 21.5 % (13.2-15.2)
[2017-10-07] MEDS ORDERED: FLUSH HEPARIN IV ONE (17:09)
--- NOTE | 2017-10-07 17:51 | Emergency Department Report ---
ED General Adult HPI - General Chief complaint: Sickle Cell Crisis Stated complaint: SICKLE CELL PAIN Time Seen by Provider: 10/07/17 13:52 Source: patient Mode of arrival: Ambulatory Limitations: No Limitations - History of Present Illness Initial comments: Ms. Aguilar has hx of sickle cell anemia. Recently dx'd with PE. 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 She has back pain mild left chest pain. Extremity pain. -: Gradual, days(s) (2) Location: chest, back, upper extremity, lower extremity Severity scale (0 -10): 5 Quality: aching, dull Consistency: constant Worsens with: none - Related Data Home Medications Medication Instructions Recorded Confirmed Last Taken Metoprolol [Lopressor TAB] 100 mg PO BID 01/16/13 10/11/16 10/11/16 Lisinopril [Zestril TAB] 10 mg PO QDAY 09/12/15 10/11/16 10/11/16 Folic Acid [Folvite] 1 mg PO QDAY 10/28/15 10/11/16 10/11/16 Previous Rx's Medication Instructions Recorded Last Taken Type Ketorolac [Toradol] 10 mg PO Q6H PRN #20 tablet 07/12/16 10/11/16 Rx Ondansetron [Zofran Odt] 4 mg PO QID PRN #20 tab.rapdis 07/12/16 10/11/16 Rx Vit Calc,Iron,Folic 1 each PO QDAY #30 tablet 07/12/16 10/11/16 Rx [ Vitamins] HYDROcodone/APAP 5-325 [[place] 1 each PO Q6HR PRN #5 tablet 08/30/16 10/11/16 Rx 5/325] Oxycodone HCl/Acetaminophen 1 each PO Q6HR PRN #10 tablet 10/11/16 Unknown Rx [Percocet 10/325 mg] traMADol [Ultram] 50 mg PO Q4HR PRN #20 tablet 06/06/17 Unknown Rx Allergies Allergy/AdvReac Type Severity Reaction Status Date / Time hydralazine [Hydralazine] Allergy Unknown Verified 10/03/17 01:38 hydroxyurea Allergy Unknown Verified 10/03/17 01:38 levofloxacin [From Levaquin] Allergy Unknown Verified 10/07/17 11:30 morphine Allergy Shortness Verified 10/03/17 01:38 of Breath nalbuphine HCl [From Nubain] Allergy Unknown Verified 10/03/17 01:38 sulfamethoxazole Allergy Unknown Verified 10/03/17 01:38 [From Bactrim] trimethoprim [From Bactrim] Allergy Unknown Verified 10/03/17 01:38 ED Review of Systems ROS: Stated complaint: SICKLE CELL PAIN Other details as noted in HPI Comment: All other systems reviewed and negative Constitutional: denies: fever, malaise Respiratory: denies: cough Cardiovascular: chest pain Gastrointestinal: denies: abdominal pain ED Past Medical Hx - Past Medical History Previous Medical History?: Yes Hx Hypertension: Yes Hx Deep Vein Thrombosis: Yes Hx Pulmonary Embolism: Yes Hx Sickle Cell Disease: Yes Hx Tuberculosis: Yes - Surgical History Past Surgical History?: Yes Hx Cholecystectomy: Yes Additional Surgical History: x1,. port R chest - Social History Smoking Status: Never Smoker Substance Use Type: Alcohol - Medications Home Medications: Home Medications Medication Instructions Recorded Confirmed Last Taken Type Metoprolol [Lopressor TAB] 100 mg PO BID 01/16/13 10/11/16 10/11/16 History Lisinopril [Zestril TAB] 10 mg PO QDAY 09/12/15 10/11/16 10/11/16 History Folic Acid [Folvite] 1 mg PO QDAY 10/28/15 10/11/16 10/11/16 History Ketorolac [Toradol] 10 mg PO Q6H PRN #20 tablet 07/12/16 10/11/16 10/11/16 Rx Ondansetron [Zofran Odt] 4 mg PO QID PRN #20 tab.rapdis 07/12/16 10/11/16 Rx Vit Calc,Iron,Folic 1 each PO QDAY #30 tablet 07/12/16 10/11/16 Rx [ Vitamins] HYDROcodone/APAP 5-325 [[place] 1 each PO Q6HR PRN #5 tablet 08/30/16 10/11/1611/20 Rx 5/325] Oxycodone HCl/Acetaminophen 1 each PO Q6HR PRN #10 tablet 10/11/16 Unknown Rx [Percocet 10/325 mg] traMADol [Ultram] 50 mg PO Q4HR PRN #20 tablet 06/06/17 Unknown Rx ED Physical Exam - General Limitations: No Limitations General appearance: alert, in no apparent distress - Head Head exam: Present: atraumatic, normocephalic - Eye Eye exam: Present: normal appearance - ENT ENT exam: Present: mucous membranes moist - Neck Neck exam: Present: normal inspection. Absent: tenderness, meningismus - Respiratory Respiratory exam: Present: normal lung sounds bilaterally. Absent: respiratory distress, wheezes, rales, rhonchi - Cardiovascular Cardiovascular Exam: Present: regular rate, normal rhythm, normal heart sounds. Absent: systolic murmur, diastolic murmur, rubs, gallop - GI/Abdominal GI/Abdominal exam: Present: soft, normal bowel sounds. Absent: distended, tenderness, guarding, rebound - Extremities Exam Extremities exam: Present: normal inspection - Back Exam Back exam: Present: normal inspection - Neurological Exam Neurological exam: Present: alert, oriented X3 - Psychiatric Psychiatric exam: Present: normal affect, normal mood - Skin Skin exam: Present: warm, dry, intact, normal color. Absent: rash ED Course Vital Signs 10/07/17 10/07/17 10/07/17 11:31 12:24 15:05 Temperature 98.9 F Pulse Rate 66 77 Respiratory 18 18 18 Rate Blood Pressure 153/97 Blood Pressure 165/102 [Right] O2 Sat by Pulse 100 98 Oximetry ED Medical Decision Making - Lab Data Result diagrams: 10/07/17 14:51 Laboratory Results - last 24 hr 10/07/17 10/07/17 14:51 14:51 WBC 8.0 RBC 4.20 Hgb 8.4 L Hct 26.7 L MCV 64 L MCH 20 L MCHC 32 RDW 21.5 H Plt Count 387 Lymph % (Auto) Intrusion Analyst Lymph # Intrusion Analyst Percent Retic 2.38 HCG, Qual Negative - Medical Decision Making Ms. Aguilar appears well. After 3 doses of hydromorphone, she requested discharge. dx: sickle cell disease crisis She is currently taking Percocet and Ibuprofen for pain. Dr. Jones has prescribed MS Jassi. She is waiting for this medication to arrive to the pharmacy. Critical care attestation.: If time is entered above; I have spent that time in minutes in the direct care of this critically ill patient, excluding procedure time. ED Disposition Clinical Impression: Sickle cell anemia, Sickle cell pain crisis Disposition: DC-01 TO HOME OR SELFCARE Is pt being admited?: No Does the pt Need Aspirin: No Condition: Stable Instructions: Chest Pain (ED) Referrals: PRIMARY CARE, [Primary Care Provider] - 3-5 Days Time of Disposition: 17:55
[2017-10-07 19:12] LABS: Anisocytosis 2+; Band Neutrophils # (Manual) 0.1 K/mm3; Hypochromasia 2+; Poikilocytosis 2+; Total Cells Counted 100
[2017-10-07 19:13] LABS: Platelet Estimate Consistent w Auto; Target Cells 2+
== END 2017-10-07 18:52 | disposition home or self-care (01) ==
LOC: ED 11:26
DX: D57.00 Hb-SS disease with crisis, unspecified (principal); I10 Essential (primary) hypertension; Z86.711 Personal history of pulmonary embolism; Z90.49 Acquired absence of other specified parts of digestive tract; Z88.2 Allergy status to sulfonamides; Z88.5 Allergy status to narcotic agent; Z88.1 Allergy status to other antibiotic agents
CPT/HCPCS: 36415; 84703; 85007; 85025; 85045; 96374; 96375; 96376; 99283; J1170; J1200; J1642; J2405; J7030

== ENCOUNTER 2017-10-25 07:48 | Emergency (ER) | payer MEDICARE ==
[2017-10-25] MEDS ORDERED: ZOFRAN IV ONE (12:05)
[2017-10-25] MEDS ORDERED: BENADRYL IV ONE ×2 (12:05→14:34)
[2017-10-25] MEDS ORDERED: SUBLIMAZE IV ONE (12:06)
--- NOTE | 2017-10-25 12:42 | Emergency Department Report ---
HPI - General Chief Complaint: Sickle Cell Crisis Time Seen by Provider: 10/25/17 11:40 - HPI HPI: The patient is a 42-year-old female with a history of sickle cell disease, who presents for evaluation of back pain. The patient reports back pain for the past 15 hours, constant since onset, 9 out of 10 in severity, sharp in quality, exacerbated with movement of the lower back. She states that her symptoms are consistent with previous episodes of sickle cell pain attacks. The patient denies blunt trauma to the back, fall, fever, chills, night sweats, saddle anesthesia, paresthesias, numbness or tingling in the legs, leg weakness, urine or bowel incontinence or retention, difficulty ambulating, or other focal neurological deficits. ED Past Medical Hx - Past Medical History Hx Hypertension: Yes Hx Deep Vein Thrombosis: Yes Hx Pulmonary Embolism: Yes Hx Sickle Cell Disease: Yes Hx Tuberculosis: Yes - Surgical History Hx Cholecystectomy: Yes Additional Surgical History: x1,. port R chest - Social History Smoking Status: Never Smoker Substance Use Type: None - Medications Home Medications: Home Medications Medication Instructions Recorded Confirmed Last Taken Type Metoprolol [Lopressor TAB] 100 mg PO BID 01/16/13 10/11/16 10/11/16 History Lisinopril [Zestril TAB] 10 mg PO QDAY 09/12/15 10/11/16 10/11/16 History Folic Acid [Folvite] 1 mg PO QDAY 10/28/15 10/11/16 10/11/16 History Ketorolac [Toradol] 10 mg PO Q6H PRN #20 tablet 07/12/16 10/11/16 10/11/16 Rx Ondansetron [Zofran Odt] 4 mg PO QID PRN #20 tab.rapdis 07/12/16 10/11/16 Rx Vit Calc,Iron,Folic 1 each PO QDAY #30 tablet 07/12/16 10/11/16 Rx [ Vitamins] HYDROcodone/APAP 5-325 [[place] 1 each PO Q6HR PRN #5 tablet 08/30/16 10/11/1611/20 Rx 5/325] Oxycodone HCl/Acetaminophen 1 each PO Q6HR PRN #10 tablet 10/11/16 Unknown Rx [Percocet 10/325 mg] traMADol [Ultram] 50 mg PO Q4HR PRN #20 tablet 06/06/17 Unknown Rx ED Review of Systems ROS: Stated complaint: SICKLE CELL PAIN Other details as noted in HPI Constitutional: denies: fever ENT: denies: throat or neck pain Respiratory: denies: cough, shortness of breath Cardiovascular: denies: chest pain Endocrine: denies unexplained weight loss or gain Gastrointestinal: denies: abdominal pain, nausea Genitourinary: denies: dysuria Musculoskeletal: reports back pain Skin: denies: rash Neurological: denies: headache Hematological/Lymphatic: denies: easy bleeding or easy bruising Psych: denies sadness or hopelessness Physical Exam - Physical Exam Vital Signs: Vital Signs 10/25/17 10/25/17 07:53 12:12 Temperature 98.5 F Pulse Rate 82 Respiratory 18 16 Rate Blood Pressure 146/96 O2 Sat by Pulse 99 98 Oximetry Physical Exam: General: well-nourished, well-developed, no acute distress Head: Normocephalic, atraumatic Eyes: normal sclera ENT: Mucous membranes are pale and dry Neck: No neck stiffness, no cervical adenopathy Respiratory: Breath sounds equal bilaterally, no wheezing, rales, or rhonchi Cardio: S1 and S2 present, no murmurs, rubs, gallops, capillary refill is delayed Abdomen: Normoactive bowel sounds, soft abdomen, no rigidity, no guarding or rebound tenderness Chest WALL/Back: Tenderness to palpation present to bilateral upper and lower thoracic paraspinal musculature and caudal medial trapezius, no midline bony tenderness overlying the spinous processes of the cervical, thoracic, or lumbar spine, no pain is elicited with flexion at the hip, normal active range of motion at the hips intact, no spinous step-off or obvious deformity, ipsi- lateral and contralateral straight leg raise tests are negative. On extremity testing, compartments are soft and pliable, no obvious gross motor strength deficit, 5+ motor strength, including extension of the great toe bilaterally, no muscular atrophy, spasticity, fasciculations, or clonus, no obvious gross sensation deficit including web space between 1st and 2nd toes, reflexes 2+ & symmetric on DTR testing at the knee and ankle joints, distal pulses intact Musc: No pitting edema Skin: No rash Neuro: no facial drooping, normal speech Psych: Normal affect ED Course Vital Signs 10/25/17 10/25/17 07:53 12:12 Temperature 98.5 F Pulse Rate 82 Respiratory 18 16 Rate Blood Pressure 146/96 O2 Sat by Pulse 99 98 Oximetry ED Medical Decision Making - Medical Decision Making The patient was seen and examined by myself. The patient is placed on a desk sergeant and continuous pulse ox. On initial evaluation, the patient was found to be in no distress. No findings on exam concerning for cauda equina syndrome, spinal stenosis, epidural abscess, or other emergent etiology of back pain. As the patient has no midline tenderness on exam, no neuro deficits, and no findings concerning for emergent etiology of their back pain, imaging will not be obtained at this time. IV access is established and the patient is given fluid resuscitation, Zofran, and multiple doses of dilaudid for their pain. Lab results reveal elevated reticulocyte count, and a stable hemoglobin level at patient baseline. Lab results otherwise are not concerning. The patient was reevaluated and reported that their pain was significantly improved. The patient is stable for discharge with outpatient follow-up. The patient is given follow-up and return instructions. The patient expressed understanding and agreed with the plan. The patient is discharged in stable condition. Critical care attestation.: If time is entered above; I have spent that time in minutes in the direct care of this critically ill patient, excluding procedure time. ED Disposition Clinical Impression: Sickle cell pain crisis, Dehydration Acute back pain Qualifiers: Back pain location: thoracic back pain Back pain laterality: bilateral Qualified Code(s): M54.6 - Pain in thoracic spine Disposition: - TO HOME OR SELFCARE Is pt being admited?: No Does the pt Need Aspirin: No Condition: Stable Instructions: Sickle Cell Crisis (ED), Back Pain (ED) Referrals: PRIMARY CARE, [Primary Care Provider] - 3-5 Days Time of Disposition: 14:35
[2017-10-25] MEDS ORDERED: DILAUDID ONE (12:55)
[2017-10-25] MEDS ORDERED: DILAUDID IV ONE ×2 (12:57→14:34)
[2017-10-25 12:59] LABS: Hematocrit 26.2 % (30.3-42.9); Hemoglobin 8.2 gm/dl (10.1-14.3); Mean Corpuscular HGB Conc 31 % (30-34); Mean Corpuscular Volume 64 fl (79-97); Platelet Count 371 K/mm3 (140-440); Red Blood Count 4.11 M/mm3 (3.65-5.03)
[2017-10-25 13:00] LABS: Mean Corpuscular Hemoglobin 20 pg (28-32); Red Cell Distribution Width 21.2 % (13.2-15.2)
[2017-10-25] MEDS ORDERED: D5NS 0.2% 1,000 ML IV SCH (13:00)
[2017-10-25 13:50] LABS: Basophils % (Manual) 0 % (0.0-1.8); Hypochromasia 2+; Target Cells 3+; Total Cells Counted 100
[2017-10-25 13:51] LABS: Anisocytosis Few; Platelet Estimate Consistent w Auto; Poikilocytosis Few
[2017-10-25] MEDS ORDERED: FLUSH HEPARIN IV ONE (15:10)
[2017-10-25 15:22] VITALS: BP 146/54
== END 2017-10-25 15:20 | disposition home or self-care (01) ==
LOC: ED 07:48
DX: D57.00 Hb-SS disease with crisis, unspecified (principal); E86.0 Dehydration; I10 Essential (primary) hypertension; Z86.11 Personal history of tuberculosis; Z86.718 Personal history of other venous thrombosis and embolism
CPT/HCPCS: 36415; 85007; 85025; 85045; 96361; 96374; 96375; 96376; 99284; J1170; J1200; J1642; J2405; J3010

== ENCOUNTER 2017-11-21 10:38 | Emergency (ER) | payer MEDICARE ==
[2017-11-21] MEDS ORDERED: DILAUDID IV ONE ×3 (13:17→15:20)
[2017-11-21] MEDS ORDERED: ZOFRAN IV ONE (13:17)
[2017-11-21] MEDS ORDERED: BENADRYL IV ONE (13:17)
[2017-11-21 13:46] LABS: Hematocrit 26.2 % (30.3-42.9); Hemoglobin 8.3 gm/dl (10.1-14.3); Mean Corpuscular HGB Conc 32 % (30-34); Platelet Count 545 K/mm3 (140-440); Red Blood Count 3.93 M/mm3 (3.65-5.03)
[2017-11-21] MEDS ORDERED: D5NS 0.2% 1,000 ML IV SCH (14:00)
[2017-11-21 14:04] LABS: Mean Corpuscular Hemoglobin 21 pg (28-32); Mean Corpuscular Volume 67 fl (79-97); Red Cell Distribution Width 23.6 % (13.2-15.2)
[2017-11-21 14:06] LABS: BUN/Creatinine Ratio 16; Blood Urea Nitrogen 11 mg/dL (7-17); Calcium 10.8 mg/dL (8.4-10.2); Hemolysis Index 3
--- NOTE | 2017-11-21 14:31 | Emergency Department Report ---
ED General Adult HPI - General Chief complaint: Sickle Cell Crisis Stated complaint: SICKLE CELL PAIN Time Seen by Provider: 11/21/17 13:12 Source: patient Mode of arrival: Ambulatory Limitations: No Limitations - History of Present Illness Initial comments: 42-year-old female with a history DVT, hypertension, PE, and sickle cell disease presents to the hospital complaining of lower back pain and bilateral hip pain secondary to sickle cell crisis. Patient had a little nausea vomiting early this morning that has since resolved. Patient states that she was released from inpatient admission at [facility] 3 days ago for pneumonia and sepsis. She is currently receiving IV daptomycin via her port. Patient started to have pain today. She is currently taking Percocet 10 mg and ibuprofen 800 mg for pain at home without relief. No complains of shortness of breath or fever. Severity scale (0 -10): 9 - Related Data Home Medications Medication Instructions Recorded Confirmed Last Taken Metoprolol [Lopressor TAB] 100 mg PO BID 01/16/13 10/11/16 10/11/16 Lisinopril [Zestril TAB] 10 mg PO QDAY 09/12/15 10/11/16 10/11/16 Folic Acid [Folvite] 1 mg PO QDAY 10/28/15 10/11/16 10/11/16 Previous Rx's Medication Instructions Recorded Last Taken Type Ketorolac [Toradol] 10 mg PO Q6H PRN #20 tablet 07/12/16 10/11/16 Rx Ondansetron [Zofran Odt] 4 mg PO QID PRN #20 tab.rapdis 07/12/16 10/11/16 Rx Vit Calc,Iron,Folic 1 each PO QDAY #30 tablet 07/12/16 10/11/16 Rx [ Vitamins] HYDROcodone/APAP 5-325 [[place] 1 each PO Q6HR PRN #5 tablet 08/30/16 10/11/16 Rx 5/325] Oxycodone HCl/Acetaminophen 1 each PO Q6HR PRN #10 tablet 10/11/16 Unknown Rx [Percocet 10/325 mg] traMADol [Ultram] 50 mg PO Q4HR PRN #20 tablet 06/06/17 Unknown Rx Allergies Allergy/AdvReac Type Severity Reaction Status Date / Time hydralazine [Hydralazine] Allergy Unknown Verified 10/25/17 07:53 hydroxyurea Allergy Unknown Verified 10/25/17 07:53 levofloxacin [From Levaquin] Allergy Unknown Verified 10/25/17 07:53 morphine Allergy Shortness Verified 10/25/17 07:53 of Breath nalbuphine HCl [From Nubain] Allergy Unknown Verified 10/25/17 07:53 sulfamethoxazole Allergy Unknown Verified 10/25/17 07:53 [From Bactrim] trimethoprim [From Bactrim] Allergy Unknown Verified 10/25/17 07:53 ED Review of Systems ROS: Stated complaint: SICKLE CELL PAIN Other details as noted in HPI Comment: All other systems reviewed and negative ED Past Medical Hx - Past Medical History Previous Medical History?: Yes Hx Hypertension: Yes Hx Deep Vein Thrombosis: Yes Hx Pulmonary Embolism: Yes Hx Sickle Cell Disease: Yes Hx Tuberculosis: Yes - Surgical History Past Surgical History?: Yes Hx Cholecystectomy: Yes Additional Surgical History: x1,. port R chest - Social History Smoking Status: Never Smoker Substance Use Type: None - Medications Home Medications: Home Medications Medication Instructions Recorded Confirmed Last Taken Type Metoprolol [Lopressor TAB] 100 mg PO BID 01/16/13 10/11/16 10/11/16 History Lisinopril [Zestril TAB] 10 mg PO QDAY 09/12/15 10/11/16 10/11/16 History Folic Acid [Folvite] 1 mg PO QDAY 10/28/15 10/11/16 10/11/16 History Ketorolac [Toradol] 10 mg PO Q6H PRN #20 tablet 07/12/16 10/11/16 10/11/16 Rx Ondansetron [Zofran Odt] 4 mg PO QID PRN #20 tab.rapdis 07/12/16 10/11/16 Rx Vit Calc,Iron,Folic 1 each PO QDAY #30 tablet 07/12/16 10/11/16 Rx [ Vitamins] HYDROcodone/APAP 5-325 [[place] 1 each PO Q6HR PRN #5 tablet 08/30/16 10/11/1611/20 Rx 5/325] Oxycodone HCl/Acetaminophen 1 each PO Q6HR PRN #10 tablet 10/11/16 Unknown Rx [Percocet 10/325 mg] traMADol [Ultram] 50 mg PO Q4HR PRN #20 tablet 06/06/17 Unknown Rx ED Physical Exam - General Limitations: No Limitations - Other Other exam information: General: No limitations, patient is alert in no acute distress Head exam: Atraumatic, normocephalic Eyes exam: Normal appearance, ENT: Moist mucous membrane, normal oropharynx Neck exam: Normal inspection, full range of motion, no meningismus nontender Respiratory exam: Clear to auscultation bilateral, no wheezes, rales, crackles Cardiovascular: Normal rate and rhythm, normal heart sounds reported to right chest wall Abdomen: Soft, nondistended, and nontender, with normal bowel sounds, no rebound, or guarding Extremity: Full range of motion normal inspection no deformity Back: Normal Inspection, full range of motion, no tenderness Neurologic: Alert, oriented x3, cranial nerves intact, no motor or sensory deficit Psychiatric: normal affect, normal mood Skin: Warm, dry, intact ED Course Vital Signs 11/21/17 11/21/17 11:30 14:49 Temperature 99.1 F Pulse Rate 78 67 Respiratory 18 18 Rate Blood Pressure 157/105 Blood Pressure 135/97 [Right] O2 Sat by Pulse 100 Oximetry - Reevaluation(s) Reevaluation #1: 11/21/17 14:44 Initially into the room patient appears to be in no acute distress while the cell phone. She then looks up and states "oh you snuck up on me" and then begins to walk her body and stating she is in pain. Apparently patient has a history of visiting multiple ERs for pain medication. Retic cell count is normal with adequate H&H and therefore patient be discharged home to continue her current pain medications and follow-up with her bulb tester ED Medical Decision Making - Lab Data Result diagrams: 11/21/17 13:32 11/21/17 13:31 Lab Results 11/21/17 11/21/17 11/21/17 Range/Units 13:31 13:31 13:32 WBC 11.6 H (4.5-11.0) K/mm3 RBC 3.93 (3.65-5.03) M/mm3 Hgb 8.3 L (10.1-14.3) gm/dl Hct 26.2 L (30.3-42.9) % MCV 67 L (79-97) fl MCH 21 L (28-32) pg MCHC 32 (30-34) % RDW 23.6 H (13.2-15.2) % Plt Count 545 H (140-440) K/mm3 Percent Retic 1.81 (0.78-2.58) % Sodium 141 (137-145) mmol/L Potassium 4.1 (3.6-5.0) mmol/L Chloride 105.7 (98-107) mmol/L Carbon Dioxide 21 L (22-30) mmol/L Anion Gap 18 mmol/L BUN 11 (7-17) mg/dL Creatinine 0.7 (0.7-1.2) mg/dL Estimated GFR > 60 ml/min BUN/Creatinine Ratio 16 % Glucose 77 (65-100) mg/dL Calcium 10.8 H (8.4-10.2) mg/dL HCG, Qual Negative (Negative) - Medical Decision Making Patient is here with complaints of pain secondary to sickle cell crisis. Stable hemoglobin with a normal reticulocyte count. Patient encouraged to continue her current outpatient therapy and follow-up. She received Dilaudid 1mg 2 doses in the ED, Zofran, and Benadryl prior to discharge htn improved with pain meds - Differential Diagnosis drug-seeking, anemia, sickle cell crisis, infection Critical Care Time: No Critical care attestation.: If time is entered above; I have spent that time in minutes in the direct care of this critically ill patient, excluding procedure time. ED Disposition Clinical Impression: Sickle cell pain crisis, Sickle cell anemia Disposition: - TO HOME OR SELFCARE Is pt being admited?: No Does the pt Need Aspirin: No Condition: Stable Additional Instructions: Take the medication as prescribed. Follow up with your doctor. Return if symptoms worsen as indicated by your discharge instructions Referrals: md chad [Other] - 2-3 Days Time of Disposition: 15:00
[2017-11-21 15:08] VITALS: BP 134/62
[2017-11-21] MEDS ORDERED: FLUSH HEPARIN IV ONE (15:24)
== END 2017-11-21 15:06 | disposition home or self-care (01) ==
LOC: ED 10:38
DX: D57.00 Hb-SS disease with crisis, unspecified (principal); D57.1 Sickle-cell disease without crisis; I10 Essential (primary) hypertension; Z86.718 Personal history of other venous thrombosis and embolism; Z86.11 Personal history of tuberculosis; Z88.8 Allergy status to other drugs, medicaments and biological substances; Z88.1 Allergy status to other antibiotic agents; Z88.2 Allergy status to sulfonamides
CPT/HCPCS: 36415; 80048; 84703; 85027; 85045; 96361; 96374; 96375; 96376; 99283; J1170; J1200; J1642; J2405

== ENCOUNTER 2017-12-01 11:14 | Emergency (ER) | payer MEDICARE ==
[2017-12-01] MEDS ORDERED: PERCOCET 5/325 ONE ×2 (18:26→18:27)
[2017-12-01] MEDS ORDERED: DILAUDID IV ONE ×3 (21:58→23:28)
--- NOTE | 2017-12-01 21:58 | Emergency Department Report ---
HPI - General Chief Complaint: Sickle Cell Crisis Time Seen by Provider: 12/01/17 21:24 - HPI HPI: 42-year-old female presents to the emergency department with complaint of pain to the hips and back for the past 24 hours that she says is a sickle cell pain crisis. He does have a history of sickle cell and says that her algebra teacher is a Dr. Myers and she has an appointment coming up on December 08. She tried her Percocet and Motrin without much relief. She denies any fever , chest pain, shortness of breath, problems with bowel or bladder, numbness or paresthesias or any neurological deficits. She also has a past medical history of DVT/PE for which she takes Xarelto compliantly, and a history of hypertension. No recent travel or sick contacts at home. Patient was recently admitted to [facility] for one night for some idiopathic angioedema but those symptoms have resolved and has not returned. ED Past Medical Hx - Past Medical History Hx Hypertension: Yes Hx Diabetes: No Hx Deep Vein Thrombosis: Yes Hx Pulmonary Embolism: Yes Hx Sickle Cell Disease: Yes Hx COPD: No Hx Tuberculosis: Yes - Surgical History Hx Cholecystectomy: Yes Additional Surgical History: x1,. port R chest - Social History Smoking Status: Never Smoker Substance Use Type: None - Medications Home Medications: Home Medications Medication Instructions Recorded Confirmed Last Taken Type Metoprolol [Lopressor TAB] 100 mg PO BID 01/16/13 10/11/16 10/11/16 History Lisinopril [Zestril TAB] 10 mg PO QDAY 09/12/15 10/11/16 10/11/16 History Folic Acid [Folvite] 1 mg PO QDAY 10/28/15 10/11/16 10/11/16 History Ketorolac [Toradol] 10 mg PO Q6H PRN #20 tablet 07/12/16 10/11/16 10/11/16 Rx Ondansetron [Zofran Odt] 4 mg PO QID PRN #20 tab.rapdis 07/12/16 10/11/16 Rx Vit Calc,Iron,Folic 1 each PO QDAY #30 tablet 07/12/16 10/11/16 Rx [ Vitamins] HYDROcodone/APAP 5-325 [[place] 1 each PO Q6HR PRN #5 tablet 08/30/16 10/11/1611/20 Rx 5/325] Oxycodone HCl/Acetaminophen 1 each PO Q6HR PRN #10 tablet 10/11/16 Unknown Rx [Percocet 10/325 mg] traMADol [Ultram] 50 mg PO Q4HR PRN #20 tablet 06/06/17 Unknown Rx ED Review of Systems ROS: Stated complaint: SICKLE CELL PAIN Other details as noted in HPI Comment: All other systems reviewed and negative Constitutional: denies: chills, fever Eyes: denies: eye pain, eye discharge, vision change ENT: denies: ear pain, throat pain Respiratory: denies: cough, shortness of breath, wheezing Cardiovascular: denies: chest pain, palpitations Gastrointestinal: denies: abdominal pain, nausea, diarrhea Genitourinary: denies: urgency, dysuria, discharge Musculoskeletal: back pain, arthralgia, myalgia Skin: denies: rash, lesions Neurological: denies: headache, weakness, paresthesias Physical Exam - Physical Exam Vital Signs: Vital Signs 12/01/17 12/01/17 11:19 18:20 Temperature 99.1 F 98.2 F Pulse Rate 63 76 Respiratory 18 18 Rate Blood Pressure 157/102 153/97 O2 Sat by Pulse 97 100 Oximetry Physical Exam: GENERAL: The patient is well-developed well-nourished. HENT: Normocephalic. Atraumatic. Patient has moist mucous membranes. EYES: Extraocular motions are intact. Pupils equal reactive to light bilaterally. NECK: Supple. Trachea is midline. CHEST/LUNGS: Clear to auscultation. There is no respiratory distress noted. HEART/CARDIOVASCULAR: Regular. There is no tachycardia. There is no murmur. ABDOMEN: Abdomen is soft, nontender. Patient has normal bowel sounds. There is no abdominal distention. SKIN: Skin is warm and dry. NEURO: The patient is awake, alert, and oriented. The patient is cooperative. The patient has no focal neurologic deficits. The patient has normal speech. MUSCULOSKELETAL: No obvious deformity. Unable to reproduce hip pain to palpation. There is no limitation range of motion. There is no evidence of acute injury. ED Course Vital Signs 12/01/17 12/01/17 11:19 18:20 Temperature 99.1 F 98.2 F Pulse Rate 63 76 Respiratory 18 18 Rate Blood Pressure 157/102 153/97 O2 Sat by Pulse 97 100 Oximetry ED Medical Decision Making - Lab Data Result diagrams: 12/01/17 22:01 12/01/17 22:01 - Medical Decision Making Patient presents with the complaint of some low back and hip pain that she has intermittently as part of a sickle cell pain crisis. She appears awake and alert and in no acute distress. Patient's hemoglobin was 7.7 and reticulocyte count was about 2.5 which is consistent with her previous visit. Normal electrolytes, no renal deficiency and no glucose abnormalities. Patient was given a few doses of IV pain medication along with some IV fluid resuscitation. Upon reevaluation she is feeling improved. Vital signs stable throughout her ED course including being afebrile. She has good follow-up with algebra teacher and she has pain medication for home. She will return to the ER with any worsening of her symptoms or any acute distress. - Differential Diagnosis sickle cell pain crisis, fibromyalgia, muscle spasm, strain/strain Critical Care Time: No Critical care attestation.: If time is entered above; I have spent that time in minutes in the direct care of this critically ill patient, excluding procedure time. ED Disposition Clinical Impression: Sickle cell pain crisis Sickle cell anemia Qualifiers: Sickle-cell associated disorders: with unspecified crisis Qualified Code(s): D57.00 - Hb-SS disease with crisis, unspecified Arthralgia Qualifiers: Joint pain location: hip Laterality: bilateral Qualified Code(s): M25.551 - Pain in right hip Disposition: - TO HOME OR SELFCARE Is pt being admited?: No Condition: Stable Instructions: Sickle Cell Crisis (ED), Arthralgia (ED), Back Pain (ED) Additional Instructions: Please follow-up with your primary care physician and algebra teacher. Return to the emergency Department with any worsening of your symptoms or any acute distress. Referrals: PRIMARY CAREMD [Primary Care Provider] - KEERTHI Time of Disposition: 00:01
[2017-12-01] MEDS ORDERED: BENADRYL ONE (22:15)
[2017-12-01] MEDS ORDERED: BENADRYL IV ONE ×2 (22:17→22:50)
[2017-12-01 22:18] LABS: Hematocrit 21.9 % (30.3-42.9); Hemoglobin 7.7 gm/dl (10.1-14.3); Mean Corpuscular HGB Conc 35 % (30-34); Platelet Count 429 K/mm3 (140-440); Red Blood Count 3.37 M/mm3 (3.65-5.03)
[2017-12-01 22:22] LABS: Mean Corpuscular Hemoglobin 23 pg (28-32); Mean Corpuscular Volume 65 fl (79-97); Red Cell Distribution Width 23.2 % (13.2-15.2)
[2017-12-01 22:39] LABS: BUN/Creatinine Ratio 10; Blood Urea Nitrogen 7 mg/dL (7-17); Calcium 10.2 mg/dL (8.4-10.2); Hemolysis Index 1
[2017-12-01 23:04] LABS: Total Cells Counted 100
[2017-12-01 23:05] LABS: Hypochromasia 1+; Macrocytosis 1+
[2017-12-01 23:06] LABS: Large Platelets 1+; Platelet Estimate Consistent w Auto; Target Cells 2+
[2017-12-01] MEDS ORDERED: FLUSH HEPARIN IV ONE (23:39)
[2017-12-02 00:05] VITALS: BP 143/88
== END 2017-12-02 00:27 | disposition home or self-care (01) ==
LOC: ED 11:14
DX: D57.00 Hb-SS disease with crisis, unspecified (principal); M54.89 Other dorsalgia; M25.551 Pain in right hip; M25.552 Pain in left hip; I10 Essential (primary) hypertension; Z86.718 Personal history of other venous thrombosis and embolism; Z86.711 Personal history of pulmonary embolism; Z90.49 Acquired absence of other specified parts of digestive tract; Z88.6 Allergy status to analgesic agent; Z88.2 Allergy status to sulfonamides; Z88.1 Allergy status to other antibiotic agents; Z88.8 Allergy status to other drugs, medicaments and biological substances; Z79.899 Other long term (current) drug therapy
CPT/HCPCS: 36415; 80048; 84703; 85007; 85025; 85045; 96374; 96375; 96376; 99283; J1170; J1200; J1642

== ENCOUNTER 2017-12-11 21:24 | Emergency (ER) | payer MEDICARE | END 2017-12-11 22:00 | disposition left against medical advice (07) | LOC: ED 21:24 | DX: D57.219 Sickle-cell/Hb-C disease with crisis, unspecified (principal); Z53.21 Procedure and treatment not carried out due to patient leaving prior to being seen by health care provider ==

== ENCOUNTER 2017-12-12 14:00 | Emergency (ER) | payer MEDICARE ==
[2017-12-12] MEDS ORDERED: CATAPRES PO ONE (14:16)
[2017-12-12] MEDS ORDERED: CATAPRES ONE (14:17)
[2017-12-12] MEDS ORDERED: D5NS 0.2% 1,000 ML IV SCH (15:00)
[2017-12-12] MEDS ORDERED: ZOFRAN IV ONE (15:53)
[2017-12-12] MEDS ORDERED: SUBLIMAZE IV ONE (15:53)
[2017-12-12] MEDS ORDERED: DILAUDID IV ONE ×2 (16:25→18:23)
[2017-12-12] MEDS ORDERED: DILAUDID ONE (16:31)
[2017-12-12 17:31] LABS: Hematocrit 22.2 % (30.3-42.9); Hemoglobin 7.2 gm/dl (10.1-14.3); Mean Corpuscular HGB Conc 32 % (30-34)
[2017-12-12 17:33] LABS: Mean Corpuscular Hemoglobin 21 pg (28-32); Mean Corpuscular Volume 65 fl (79-97); Platelet Count 327 K/mm3 (140-440); Red Cell Distribution Width 22.3 % (13.2-15.2)
[2017-12-12] MEDS ORDERED: BENADRYL IV ONE (18:23)
--- NOTE | 2017-12-12 18:27 | Emergency Department Report ---
HPI - General Chief Complaint: Sickle Cell Crisis Time Seen by Provider: 12/12/17 15:54 - HPI HPI: The patient is a 42-year-old female with a history of sickle cell disease, who presents for evaluation of back pain. The patient reports back pain for the past 2 days, constant since onset, 9 out of 10 in severity, sharp in quality, exacerbated with movement of the lower back. She states that her symptoms are consistent with previous episodes of sickle cell pain attacks. The patient denies blunt trauma to the back, fall, fever, chills, night sweats, saddle anesthesia, paresthesias, numbness or tingling in the legs, leg weakness, urine or bowel incontinence or retention, difficulty ambulating, or other focal neurological deficits. ED Past Medical Hx - Past Medical History Previous Medical History?: Yes Hx Hypertension: Yes (14 years old) Hx Congestive Heart Failure: No Hx Diabetes: No Hx Deep Vein Thrombosis: Yes Hx Pulmonary Embolism: Yes Hx Sickle Cell Disease: Yes (SC DZ) Hx Asthma: No Hx COPD: No Hx Tuberculosis: No - Surgical History Past Surgical History?: Yes Hx Cholecystectomy: Yes Additional Surgical History: x1,. port R chest - Social History Smoking Status: Never Smoker Substance Use Type: None - Medications Home Medications: Home Medications Medication Instructions Recorded Confirmed Last Taken Type Folic Acid [Folvite] 1 mg PO QDAY 10/28/15 12/05/17 10/11/16 History Ondansetron [Zofran Odt] 4 mg PO QID PRN #20 tab.rapdis 07/12/16 12/05/17 Rx Oxycodone HCl/Acetaminophen 1 each PO Q6HR PRN #10 tablet 10/11/16 12/05/17 Unknown Rx [Percocet 10/325 mg] Amlodipine Besylate [Norvasc] 10 mg PO DAILY 12/05/17 12/05/17 Unknown History Morphine ER [Ms Contin ER] 30 mg PO BID 12/05/17 12/05/17 Unknown History Clindamycin [Clindamycin CAP] 300 mg PO Q8H #15 cap 12/07/17 Unknown Rx ED Review of Systems ROS: Stated complaint: SICKLE CELL PAIN Other details as noted in HPI Constitutional: denies: fever ENT: denies: throat or neck pain Respiratory: denies: cough, shortness of breath Cardiovascular: denies: chest pain Endocrine: denies unexplained weight loss or gain Gastrointestinal: denies: abdominal pain, nausea Genitourinary: denies: dysuria Musculoskeletal: reports back pain denies: leg swelling Skin: denies: rash Neurological: denies: headache Hematological/Lymphatic: denies: easy bleeding or easy bruising Psych: denies sadness or hopelessness Physical Exam - Physical Exam Vital Signs: Vital Signs 12/12/17 12/12/17 12/12/17 14:09 14:20 17:50 Temperature 99.4 F Pulse Rate 81 81 Respiratory 18 Rate Blood Pressure 173/111 173/111 Blood Pressure 130/96 [Right] O2 Sat by Pulse 99 Oximetry 12/12/17 12/12/17 17:55 18:09 Temperature Pulse Rate 75 Respiratory Rate Blood Pressure Blood Pressure 138/95 [Right] O2 Sat by Pulse 100 Oximetry Physical Exam: General: well-nourished, well-developed, no acute distress Head: Normocephalic, atraumatic Eyes: normal sclera ENT: Mucous membranes are pale and dry Neck: No neck stiffness, no cervical adenopathy Respiratory: Breath sounds equal bilaterally, no wheezing, rales, or rhonchi Cardio: S1 and S2 present, no murmurs, rubs, gallops, capillary refill is delayed Abdomen: Normoactive bowel sounds, soft abdomen, no rigidity, no guarding or rebound tenderness Chest WALL/Back: Tenderness to palpation present to bilateral upper and lower thoracic paraspinal musculature and caudal medial trapezius, no midline bony tenderness overlying the spinous processes of the cervical, thoracic, or lumbar spine, no pain is elicited with flexion at the hip, normal active range of motion at the hips intact, no spinous step-off or obvious deformity, ipsi- lateral and contralateral straight leg raise tests are negative. On extremity testing, compartments are soft and pliable, no obvious gross motor strength deficit, 5+ motor strength, including extension of the great toe bilaterally, no muscular atrophy, spasticity, fasciculations, or clonus, no obvious gross sensation deficit including web space between 1st and 2nd toes, reflexes 2+ & symmetric on DTR testing at the knee and ankle joints, distal pulses intact Musc: No pitting edema Skin: No rash Neuro: no facial drooping, normal speech Psych: Normal affect ED Course Vital Signs 12/12/17 12/12/17 12/12/17 14:09 14:20 17:50 Temperature 99.4 F Pulse Rate 81 81 Respiratory 18 Rate Blood Pressure 173/111 173/111 Blood Pressure 130/96 [Right] O2 Sat by Pulse 99 Oximetry 12/12/17 12/12/17 17:55 18:09 Temperature Pulse Rate 75 Respiratory Rate Blood Pressure Blood Pressure 138/95 [Right] O2 Sat by Pulse 100 Oximetry ED Medical Decision Making - Lab Data Result diagrams: 12/12/17 16:33 - Medical Decision Making The patient was seen and examined by myself. The patient is placed on a playground monitor and continuous pulse ox. On initial evaluation, the patient was found to be in no distress. No findings on exam concerning for cauda equina syndrome, spinal stenosis, epidural abscess, or other emergent etiology of back pain. As the patient has no midline tenderness on exam, no neuro deficits, and no findings concerning for emergent etiology of their back pain, imaging will not be obtained at this time. IV access is established and the patient is given fluid resuscitation, Zofran, and multiple doses of dilaudid for their pain. Lab results reveal elevated reticulocyte count, and a stable hemoglobin level at patient baseline. Lab results otherwise are not concerning. The patient was reevaluated and reported that their pain was significantly improved. The patient is stable for discharge with outpatient follow-up. The patient is given follow-up and return instructions. The patient expressed understanding and agreed with the plan. The patient is discharged in stable condition. Critical care attestation.: If time is entered above; I have spent that time in minutes in the direct care of this critically ill patient, excluding procedure time. ED Disposition Clinical Impression: Sickle cell pain crisis, Dehydration Acute low back pain Qualifiers: Back pain laterality: bilateral Sciatica presence: without sciatica Qualified Code(s): M54.5 - Low back pain Disposition: DC-01 TO HOME OR SELFCARE Is pt being admited?: No Does the pt Need Aspirin: No Condition: Stable Referrals: PRIMARY CARE [Primary Care Provider] - 3-5 Days Time of Disposition: 18:27
[2017-12-12 18:49] LABS: Total Cells Counted 100
[2017-12-12 18:57] LABS: Poikilocytosis 2+
[2017-12-12 18:58] LABS: Hypochromasia 2+; Ovalocytes 1+; Platelet Estimate Consistent w Auto; Sickle Cells 1+; Stomatocytes Few; Target Cells 2+
[2017-12-12] MEDS ORDERED: FLUSH HEPARIN IV ONE ×2 (19:03→19:09)
[2017-12-12 19:13] VITALS: BP 130/80
== END 2017-12-12 19:13 | disposition home or self-care (01) ==
LOC: ED 14:00
DX: D57.00 Hb-SS disease with crisis, unspecified (principal); E86.0 Dehydration; I10 Essential (primary) hypertension; Z86.718 Personal history of other venous thrombosis and embolism; Z86.711 Personal history of pulmonary embolism; Z90.49 Acquired absence of other specified parts of digestive tract; Z88.1 Allergy status to other antibiotic agents; Z88.8 Allergy status to other drugs, medicaments and biological substances; Z88.6 Allergy status to analgesic agent
CPT/HCPCS: 36415; 84703; 85007; 85025; 85045; 96374; 96375; 96376; 99284; J1170; J1200; J1642; J2405; J3010

== ENCOUNTER 2017-12-18 23:58 | Emergency (ER) | payer MEDICARE ==
[2017-12-19] MEDS ORDERED: D5NS 0.2% 1,000 ML IV SCH (03:00)
[2017-12-19 03:35] VITALS: BP 146/98
[2017-12-19] MEDS ORDERED: DILAUDID IV ONE ×2 (03:44→05:07)
[2017-12-19] MEDS ORDERED: ZOFRAN IV ONE ×2 (03:44→05:07)
[2017-12-19 03:46] LABS: Hematocrit 23.4 % (30.3-42.9); Hemoglobin 7.5 gm/dl (10.1-14.3); Mean Corpuscular HGB Conc 32 % (30-34); Platelet Count 405 K/mm3 (140-440); Red Blood Count 3.66 M/mm3 (3.65-5.03)
[2017-12-19 03:47] LABS: Mean Corpuscular Hemoglobin 21 pg (28-32); Mean Corpuscular Volume 64 fl (79-97); Red Cell Distribution Width 21.1 % (13.2-15.2)
[2017-12-19] MEDS ORDERED: BENADRYL IV ONE ×2 (03:50→05:07)
--- NOTE | 2017-12-19 03:50 | Emergency Department Report ---
ED General Adult HPI - General Chief complaint: Sickle Cell Crisis Stated complaint: SICKLE CELL PAIN Time Seen by Provider: 12/19/17 03:29 Source: patient Mode of arrival: Ambulatory Limitations: No Limitations - History of Present Illness Initial comments: 42-year-old female with a past medical history DVT, asthma, hypertension, sickle cell disease and previous cholecystectomy presents complaining of pain secondary to sickle cell crisis. She states she had a really hard day at work. She comes complaining of back pain radiating down to left hip. It is constant , rated 7/10 in intensity, without aggravating or alleviating factors. Patient to Percocet and Motrin prior to arrival without improvement. She denies nausea , vomiting, fever, or dysuria. He has frequent ER visits here including a recent admission. Her tax assessor is Dr. Jones she states she missed a recent hematology appointment but hasn't upcoming appointment on the . - Related Data Home Medications Medication Instructions Recorded Confirmed Last Taken Folic Acid [Folvite] 1 mg PO QDAY 10/28/15 12/05/17 10/11/16 Amlodipine Besylate [Norvasc] 10 mg PO DAILY 12/05/17 12/05/17 Unknown Morphine ER [Ms Contin ER] 30 mg PO BID 12/05/17 12/05/17 Unknown Previous Rx's Medication Instructions Recorded Last Taken Type Ondansetron [Zofran Odt] 4 mg PO QID PRN #20 tab.rapdis 07/12/16 10/11/16 Rx Oxycodone HCl/Acetaminophen 1 each PO Q6HR PRN #10 tablet 10/11/16 Unknown Rx [Percocet 10/325 mg] Clindamycin [Clindamycin CAP] 300 mg PO Q8H #15 cap 12/07/17 Unknown Rx Allergies Allergy/AdvReac Type Severity Reaction Status Date / Time hydralazine [Hydralazine] Allergy Unknown Verified 12/04/17 16:37 hydroxyurea Allergy Unknown Verified 12/04/17 16:37 levofloxacin [From Levaquin] Allergy Unknown Verified 12/04/17 16:37 morphine Allergy Shortness Verified 12/04/17 16:37 of Breath nalbuphine HCl [From Nubain] Allergy Unknown Verified 12/04/17 16:37 sulfamethoxazole Allergy Unknown Verified 12/04/17 16:37 [From Bactrim] trimethoprim [From Bactrim] Allergy Unknown Verified 12/04/17 16:37 ED Review of Systems ROS: Stated complaint: SICKLE CELL PAIN Other details as noted in HPI Comment: All other systems reviewed and negative ED Past Medical Hx - Past Medical History Previous Medical History?: Yes Hx Hypertension: Yes (14 years old) Hx Congestive Heart Failure: No Hx Diabetes: No Hx Deep Vein Thrombosis: Yes Hx Pulmonary Embolism: Yes Hx Sickle Cell Disease: Yes (SC DZ) Hx Asthma: No Hx COPD: No Hx Tuberculosis: No - Surgical History Past Surgical History?: Yes Hx Cholecystectomy: Yes Additional Surgical History: x1,. port R chest - Social History Smoking Status: Never Smoker Substance Use Type: Alcohol - Medications Home Medications: Home Medications Medication Instructions Recorded Confirmed Last Taken Type Folic Acid [Folvite] 1 mg PO QDAY 10/28/15 12/05/17 10/11/16 History Ondansetron [Zofran Odt] 4 mg PO QID PRN #20 tab.rapdis 07/12/16 12/05/17 Rx Oxycodone HCl/Acetaminophen 1 each PO Q6HR PRN #10 tablet 10/11/16 12/05/17 Unknown Rx [Percocet 10/325 mg] Amlodipine Besylate [Norvasc] 10 mg PO DAILY 12/05/17 12/05/17 Unknown History Morphine ER [Ms Contin ER] 30 mg PO BID 12/05/17 12/05/17 Unknown History Clindamycin [Clindamycin CAP] 300 mg PO Q8H #15 cap 12/07/17 Unknown Rx ED Physical Exam - General Limitations: No Limitations - Other Other exam information: General: No limitations, patient is alert in no acute distress Head exam: Atraumatic, normocephalic Eyes exam: Normal appearance ENT: Moist mucous membrane Neck exam: Normal inspection, full range of motion Respiratory exam: Clear to auscultation bilateral, no wheezes, rales, crackles Cardiovascular: Normal rate and rhythm Abdomen: Soft, nondistended, and nontender, with normal bowel sounds, no rebound, or guarding Extremity: Full range of motion normal inspection no deformity Back: Normal Inspection, full range of motion, no tenderness Neurologic: Alert, oriented x3, cranial nerves intact, no motor or sensory deficit Psychiatric: normal affect, normal mood Skin: Warm, dry, intact ED Course Vital Signs 12/19/17 12/19/17 12/19/17 00:53 00:54 02:49 Temperature 98.9 F 98.9 F Pulse Rate 84 85 Respiratory 16 17 24 Rate Blood Pressure 140/99 140/99 O2 Sat by Pulse 100 99 Oximetry 12/19/17 12/19/17 12/19/17 03:00 03:15 03:30 Temperature Pulse Rate 84 81 85 Respiratory 13 27 H 23 Rate Blood Pressure 159/103 142/93 146/98 O2 Sat by Pulse Oximetry 12/19/17 04:27 Temperature Pulse Rate Respiratory 18 Rate Blood Pressure O2 Sat by Pulse Oximetry ED Medical Decision Making - Lab Data Result diagrams: 12/19/17 Unknown Lab Results 12/19/17 12/19/17 Range/Units Unknown Unknown WBC 9.6 (4.5-11.0) K/mm3 RBC 3.66 (3.65-5.03) M/mm3 Hgb 7.5 L (10.1-14.3) gm/dl Hct 23.4 L (30.3-42.9) % MCV 64 L (79-97) fl MCH 21 L (28-32) pg MCHC 32 (30-34) % RDW 21.1 H (13.2-15.2) % Plt Count 405 (140-440) K/mm3 Lymph # [employer] Add Manual Diff Complete Total Counted 100 Seg Neuts % (Manual) 55.0 (40.0-70.0) % Band Neutrophils % 0 % Lymphocytes % (Manual) 24.0 (13.4-35.0) % Reactive Lymphs % (Man) 1.0 % Monocytes % (Manual) 7.0 (0.0-7.3) % Eosinophils % (Manual) 9.0 H (0.0-4.3) % Basophils % (Manual) 4.0 H (0.0-1.8) % Metamyelocytes % 0 % Myelocytes % 0 % Promyelocytes % 0 % Blast Cells % 0 % Nucleated RBC % 7.0 H (0.0-0.9) % Seg Neutrophils # Man 5.7 (1.8-7.7) K/mm3 Band Neutrophils # 0.0 K/mm3 Lymphocytes # (Manual) 2.5 (1.2-5.4) K/mm3 Abs React Lymphs (Man) 0.1 K/mm3 Monocytes # (Manual) 0.7 (0.0-0.8) K/mm3 Eosinophils # (Manual) 0.9 H (0.0-0.4) K/mm3 Basophils # (Manual) 0.4 H (0.0-0.1) K/mm3 Metamyelocytes # 0.0 K/mm3 Myelocytes # 0.0 K/mm3 Promyelocytes # 0.0 K/mm3 Blast Cells # 0.0 K/mm3 WBC Morphology Not Reportable Hypersegmented Neuts Not Reportable Hyposegmented Neuts Not Reportable Hypogranular Neuts Not Reportable Smudge Cells Not Reportable Toxic Granulation Not Reportable Toxic Vacuolation Not Reportable Dohle Bodies Not Reportable Pelger-Huet Anomaly Not Reportable Pili Rods Not Reportable Platelet Estimate Consistent w auto Clumped Platelets Not Reportable Plt Clumps, EDTA Not Reportable Large Platelets Not Reportable Giant Platelets Not Reportable Platelet Satelliting Not Reportable Plt Morphology Comment Not Reportable RBC Morphology Not Reportable Dimorphic RBCs Not Reportable Polychromasia Not Reportable Hypochromasia 2+ Poikilocytosis Not Reportable Anisocytosis 1+ Microcytosis 1+ Macrocytosis Not Reportable Spherocytes Not Reportable Pappenheimer Bodies Not Reportable Sickle Cells Not Reportable Target Cells 2+ Tear Drop Cells Not Reportable Ovalocytes Not Reportable Helmet Cells Not Reportable Russell-Flippin Bodies Not Reportable [place] Rings Not Reportable [place] Cells Not Reportable Bite Cells Not Reportable Crenated Cell Not Reportable Elliptocytes Not Reportable Acanthocytes (Spur) Not Reportable Rouleaux Not Reportable Hemoglobin C Crystals Not Reportable Schistocytes Not Reportable Malaria parasites Not Reportable Percent Retic 2.13 (0.78-2.58) % Aron Bodies Not Reportable Hem Pathologist Commnt No Urine Color Yellow (Yellow) Urine Turbidity Slightly-cloudy (Clear) Urine pH 6.0 (5.0-7.0) Ur Specific [place] 1.012 (1.003-1.030) Urine Protein 30 mg/dl (Negative) mg/dL Urine Glucose (UA) Neg (Negative) mg/dL Urine Ketones Neg (Negative) mg/dL Urine Blood Neg (Negative) Urine Nitrite Neg (Negative) Urine Bilirubin Neg (Negative) Urine Urobilinogen < 2.0 (<2.0) mg/dL Ur Leukocyte Esterase Neg (Negative) Urine WBC (Auto) 2.0 (0.0-6.0) /HPF Urine RBC (Auto) 3.0 (0.0-6.0) /HPF U Epithel Cells (Auto) 8.0 (0-13.0) /HPF Urine HCG, Qual Negative (Negative) - Medical Decision Making Possible sickle cell crisis versus drug seeking Hemoglobin stable compared to several days ago Reticulocyte count is normal Urine is negative for and infection - Differential Diagnosis drug-seeking, UTI, muscle strain, sickle cell crisis Critical Care Time: No Critical care attestation.: If time is entered above; I have spent that time in minutes in the direct care of this critically ill patient, excluding procedure time. ED Disposition Clinical Impression: Acute low back pain, Sickle cell anemia Disposition: TO HOME OR SELFCARE Is pt being admited?: No Condition: Stable Instructions: Sickle Cell Crisis (ED) Additional Instructions: Continue your current medications. Follow up with your tax assessor. Return if symptoms worsen as indicated by your discharge instructions Referrals: ERICH JACK [Other] - 3-5 Days your tax assessorSandrine [Other] - 3-5 Days Time of Disposition: 05:22
[2017-12-19 04:26] LABS: Bilirubin,Urine NEG (Negative); Blood,Urine NEG (Negative); Color,Urine Yellow (Yellow); Urobilinogen,Urine < 2.0 mg/dL (<2.0)
[2017-12-19 04:29] LABS: HCG Qualitative,Urine Negative (Negative)
[2017-12-19 04:41] LABS: Anisocytosis 1+; Total Cells Counted 100
[2017-12-19 04:42] LABS: Hypochromasia 2+; Platelet Estimate Consistent w Auto; Target Cells 2+
[2017-12-19] MEDS ORDERED: FLUSH HEPARIN IV ONE ×2 (07:07→07:28)
== END 2017-12-19 07:26 | disposition home or self-care (01) ==
LOC: ED 23:58
DX: M54.5 Low back pain (principal); D57.1 Sickle-cell disease without crisis; J45.909 Unspecified asthma, uncomplicated; I10 Essential (primary) hypertension; Z86.718 Personal history of other venous thrombosis and embolism; Z90.49 Acquired absence of other specified parts of digestive tract; Z88.6 Allergy status to analgesic agent; Z88.1 Allergy status to other antibiotic agents; Z88.2 Allergy status to sulfonamides; Z88.8 Allergy status to other drugs, medicaments and biological substances
CPT/HCPCS: 36415; 81001; 81025; 85007; 85025; 85045; 96361; 96374; 96375; 96376; 99283; J1170; J1200; J1642; J2405

== ENCOUNTER 2018-01-09 09:24 | Emergency (ER) | payer MEDICARE ==
[2018-01-09 09:40] VITALS: BP 155/97
[2018-01-09] MEDS ORDERED: D5NS 0.2% 1,000 ML IV SCH (10:00)
[2018-01-09] MEDS ORDERED: TORADOL IV ONE (10:18)
--- NOTE | 2018-01-09 10:21 | Emergency Department Report ---
ED General Adult HPI - General Chief complaint: Sickle Cell Crisis Stated complaint: SICKLE CELL PAIN Time Seen by Provider: 01/09/18 10:15 Source: patient Mode of arrival: Ambulatory Limitations: No Limitations - History of Present Illness Initial comments: Patient is 42 years old female with history of sickle cell disease and hypertension. Patient presented to the ER complaining all generalized body pain mainly legs and hip and lower back. Patient stated that pain started last night. Patient denied any fever, chest pain or abdominal pain. No nausea or vomiting. Patient stated that she followed up by [facility] hematology. -: Last night - Related Data Home Medications Medication Instructions Recorded Confirmed Last Taken Folic Acid [Folvite] 1 mg PO QDAY 10/28/15 12/05/17 10/11/16 Amlodipine Besylate [Norvasc] 10 mg PO DAILY 12/05/17 12/05/17 Unknown Morphine ER [Ms Contin ER] 30 mg PO BID 12/05/17 12/05/17 Unknown Previous Rx's Medication Instructions Recorded Last Taken Type Ondansetron [Zofran Odt] 4 mg PO QID PRN #20 tab.rapdis 07/12/16 10/11/16 Rx Oxycodone HCl/Acetaminophen 1 each PO Q6HR PRN #10 tablet 10/11/16 Unknown Rx [Percocet 10/325 mg] Clindamycin [Clindamycin CAP] 300 mg PO Q8H #15 cap 12/07/17 Unknown Rx Allergies Allergy/AdvReac Type Severity Reaction Status Date / Time hydralazine [Hydralazine] Allergy Unknown Verified 12/04/17 16:37 hydroxyurea Allergy Unknown Verified 12/04/17 16:37 levofloxacin [From Levaquin] Allergy Unknown Verified 12/04/17 16:37 morphine Allergy Shortness Verified 12/04/17 16:37 of Breath nalbuphine HCl [From Nubain] Allergy Unknown Verified 12/04/17 16:37 sulfamethoxazole Allergy Unknown Verified 12/04/17 16:37 [From Bactrim] trimethoprim [From Bactrim] Allergy Unknown Verified 12/04/17 16:37 ED Review of Systems ROS: Stated complaint: SICKLE CELL PAIN Other details as noted in HPI Comment: All other systems reviewed and negative Constitutional: denies: chills, fever Respiratory: denies: cough, shortness of breath, SOB with exertion, SOB at rest , wheezing Cardiovascular: denies: chest pain, palpitations Gastrointestinal: denies: abdominal pain, nausea, vomiting, diarrhea, constipation, hematemesis, melena, hematochezia Genitourinary: denies: urgency, dysuria, frequency, hematuria, abnormal menses Musculoskeletal: back pain, arthralgia, myalgia. denies: joint swelling Skin: denies: rash, lesions Neurological: denies: headache, weakness, numbness, paresthesias, confusion, abnormal gait ED Past Medical Hx - Past Medical History Previous Medical History?: Yes Hx Hypertension: Yes (14 years old) Hx Congestive Heart Failure: No Hx Diabetes: No Hx Deep Vein Thrombosis: Yes Hx Pulmonary Embolism: Yes Hx Sickle Cell Disease: Yes (SC DZ) Hx Asthma: No Hx COPD: No Hx Tuberculosis: No - Surgical History Past Surgical History?: Yes Hx Cholecystectomy: Yes Additional Surgical History: x1,. port R chest - Social History Smoking Status: Never Smoker Substance Use Type: None - Medications Home Medications: Home Medications Medication Instructions Recorded Confirmed Last Taken Type Folic Acid [Folvite] 1 mg PO QDAY 10/28/15 12/05/17 10/11/16 History Ondansetron [Zofran Odt] 4 mg PO QID PRN #20 tab.rapdis 07/12/16 12/05/17 Rx Oxycodone HCl/Acetaminophen 1 each PO Q6HR PRN #10 tablet 10/11/16 12/05/17 Unknown Rx [Percocet 10/325 mg] Amlodipine Besylate [Norvasc] 10 mg PO DAILY 12/05/17 12/05/17 Unknown History Morphine ER [Ms Contin ER] 30 mg PO BID 12/05/17 12/05/17 Unknown History Clindamycin [Clindamycin CAP] 300 mg PO Q8H #15 cap 12/07/17 Unknown Rx ED Physical Exam - General Limitations: No Limitations General appearance: alert, in no apparent distress, other (patient is resting comfortably in bed, playing with her phone in no acute distress.) - Head Head exam: Present: atraumatic, normocephalic, normal inspection - Eye Eye exam: Present: normal appearance, PERRL - ENT ENT exam: Present: normal exam, normal orophraynx, mucous membranes moist - Neck Neck exam: Present: normal inspection, full ROM. Absent: tenderness, meningismus, lymphadenopathy, thyromegaly - Respiratory Respiratory exam: Present: normal lung sounds bilaterally. Absent: respiratory distress, wheezes, rales, rhonchi, chest wall tenderness, accessory muscle use, decreased breath sounds, prolonged expiratory - Cardiovascular Cardiovascular Exam: Present: regular rate, normal rhythm, normal heart sounds - GI/Abdominal GI/Abdominal exam: Present: soft, normal bowel sounds. Absent: distended, tenderness, guarding, rebound, rigid, organomegaly, mass, bruit, pulsatile mass , hernia - Extremities Exam Extremities exam: Present: normal inspection, full ROM, normal capillary refill - Back Exam Back exam: Present: normal inspection, full ROM. Absent: tenderness, CVA tenderness (R), CVA tenderness (L), muscle spasm, paraspinal tenderness, vertebral tenderness - Neurological Exam Neurological exam: Present: alert, oriented X3, CN II-XII intact, normal gait, reflexes normal - Psychiatric Psychiatric exam: Present: normal affect, normal mood - Skin Skin exam: Present: warm, intact, normal color ED Course Vital Signs 01/09/18 09:38 Temperature 98.8 F Pulse Rate 76 Respiratory 18 Rate Blood Pressure 155/97 O2 Sat by Pulse 100 Oximetry ED Medical Decision Making - Medical Decision Making Patient is 42 years old female with history of sickle cell disease and hypertension. Patient presented to the ER complaining all generalized body pain mainly legs and hip and lower back. Patient stated that pain started last night. Patient denied any fever, chest pain or abdominal pain. No nausea or vomiting. Patient stated that she followed up by [facility] hematology. Patient in no acute distress when I walked into the room, playing with her phone , patient is asking for a specific pain Medicine and also asking to have Benadryl with that medicine. I also reviewed the patient previous visit to the ER and there is a great concern about drug-seeking behavior. I advised the patient that I'll start with IV fluids and Toradol and see if that would help in late for her hemoglobin and reticulocyte for more assessment but the patient stated that she didn't get the pain medicine that she walked she will sign an AMA I explained to the process and the seriousness of leaving without treatment she decided to sign AMA. I advised the patient to follow-up with her lang interpreter in the next 2-3 days. Critical care attestation.: If time is entered above; I have spent that time in minutes in the direct care of this critically ill patient, excluding procedure time. ED Disposition Clinical Impression: Sickle cell disease, Drug-seeking behavior Disposition: DC- LEFT AGAINST MED ADVICE Is pt being admited?: No Condition: Stable Instructions: Sickle Cell Crisis (ED) Referrals: PRIMARY CARE, [Primary Care Provider] - 3-5 Days
== END 2018-01-09 10:31 | disposition left against medical advice (07) ==
LOC: ED 09:24
DX: D57.80 Other sickle-cell disorders without crisis (principal); Z76.5 Malingerer [conscious simulation]; I10 Essential (primary) hypertension; Z86.718 Personal history of other venous thrombosis and embolism; Z86.711 Personal history of pulmonary embolism; Z90.49 Acquired absence of other specified parts of digestive tract; Z79.899 Other long term (current) drug therapy; Z88.6 Allergy status to analgesic agent; Z88.2 Allergy status to sulfonamides; Z88.1 Allergy status to other antibiotic agents; Z88.8 Allergy status to other drugs, medicaments and biological substances
CPT/HCPCS: 99282

== ENCOUNTER 2018-01-22 23:22 | Emergency (ER) | payer MEDICARE ==
[2018-01-22] MEDS ORDERED: D5NS 0.2% 1,000 ML IV SCH (23:45)
[2018-01-23] MEDS ORDERED: NORCO 5/325 PO ONE (05:41)
[2018-01-23 05:51] LABS: Hematocrit 27.7 % (30.3-42.9); Mean Corpuscular HGB Conc 32 % (30-34); Platelet Count 371 K/mm3 (140-440); Red Blood Count 4.22 M/mm3 (3.65-5.03)
[2018-01-23 05:53] LABS: Mean Corpuscular Hemoglobin 21 pg (28-32); Mean Corpuscular Volume 66 fl (79-97); Red Cell Distribution Width 27.5 % (13.2-15.2)
[2018-01-23 06:41] LABS: Basophils % (Manual) 0 % (0.0-1.8); Total Cells Counted 100
[2018-01-23 06:42] LABS: Hypochromasia 2+
[2018-01-23 06:43] LABS: Anisocytosis 2+; Dimorphic RBC Yes; Large Platelets 1+; Platelet Estimate Consistent w Auto; Target Cells 2+
[2018-01-23] MEDS ORDERED: DILAUDID IV ONE ×3 (07:21→10:25)
[2018-01-23] MEDS ORDERED: BANOPHEN PO ONE (07:21)
--- NOTE | 2018-01-23 07:29 | Emergency Department Report ---
ED General Adult HPI - General Chief complaint: Sickle Cell Crisis Stated complaint: SICKLE CELL PAIN DIZZY Time Seen by Provider: 01/23/18 07:07 Source: patient, RN notes reviewed, old records reviewed Mode of arrival: Ambulatory Limitations: No Limitations - History of Present Illness Initial comments: This is a pleasant 42-year-old female whom I have evaluated in the past. Past medical history includes hypertension, pulmonary embolus, DVT, sickle cell disease, currently on systemic anticoagulation; eliquis Patient endorses compliance with her eliquis. She presents to the ER with a complaint of sickle cell disease and dizziness. Her sickle cell pain is in her paralumbar region, back, and extremities. Her pain is sharp, increases with palpation, decreases with rest, and also decreases with hydromorphone. She denies cough, and urinary symptoms and sore throat. However she reports that she recently completed antibiotic therapy for community-acquired pneumonia, and believes that she took azithromycin and Keflex , but is not certain. She completed her antibiotic therapy 4 days ago. Her next complaint is dizziness. Her dizziness is intermittent, painless and started on . The dizziness is described as a sensation of head floating. She denies vertigo, ataxia, syncope, near syncope. She reports it as feeling similar to when "you are hungry and had not eaten." She reports that she has a history of hypertension that has been poorly managed in the past secondary to medication noncompliance, and she reports that she has been more diligent about taking her antihypertensive medication. She reports daily should her antihypertensive medication within the past week, which is relatively new for her. -: Gradual Location: back, left, right, upper extremity, lower extremity Radiation: non-radiation Severity scale (0 -10): 8 Quality: aching Consistency: intermittent Improves with: medication, rest Worsens with: movement Associated Symptoms: loss of appetite, malaise, weakness. denies: confusion, chest pain, cough, diaphoresis, fever/chills, headaches, nausea/vomiting, rash, seizure, shortness of breath, syncope - Related Data Home Medications Medication Instructions Recorded Confirmed Last Taken Folic Acid [Folvite] 1 mg PO QDAY 10/28/15 12/05/17 10/11/16 Amlodipine Besylate [Norvasc] 10 mg PO DAILY 12/05/17 12/05/17 Unknown Morphine ER [Ms Contin ER] 30 mg PO BID 12/05/17 12/05/17 Unknown Previous Rx's Medication Instructions Recorded Last Taken Type Ondansetron [Zofran Odt] 4 mg PO QID PRN #20 tab.rapdis 07/12/16 10/11/16 Rx Oxycodone HCl/Acetaminophen 1 each PO Q6HR PRN #10 tablet 10/11/16 Unknown Rx [Percocet 10/325 mg] Clindamycin [Clindamycin CAP] 300 mg PO Q8H #15 cap 12/07/17 Unknown Rx Tramadol HCl [Ultram] 50 mg PO Q6HR PRN #15 tablet 01/23/18 Unknown Rx Allergies Allergy/AdvReac Type Severity Reaction Status Date / Time hydralazine [Hydralazine] Allergy Unknown Verified 12/04/17 16:37 hydroxyurea Allergy Unknown Verified 12/04/17 16:37 levofloxacin [From Levaquin] Allergy Unknown Verified 12/04/17 16:37 morphine Allergy Shortness Verified 12/04/17 16:37 of Breath nalbuphine HCl [From Nubain] Allergy Unknown Verified 12/04/17 16:37 sulfamethoxazole Allergy Unknown Verified 12/04/17 16:37 [From Bactrim] trimethoprim [From Bactrim] Allergy Unknown Verified 12/04/17 16:37 ED Review of Systems ROS: Stated complaint: SICKLE CELL PAIN DIZZY Other details as noted in HPI Comment: All other systems reviewed and negative ED Past Medical Hx - Past Medical History Hx Hypertension: Yes (14 years old) Hx Congestive Heart Failure: No Hx Diabetes: No Hx Deep Vein Thrombosis: Yes Hx Pulmonary Embolism: Yes Hx Sickle Cell Disease: Yes (SC DZ) Hx Asthma: No Hx COPD: No Hx Tuberculosis: No - Surgical History Hx Cholecystectomy: Yes Additional Surgical History: x1,. port R chest - Social History Smoking Status: Never Smoker Substance Use Type: None - Medications Home Medications: Home Medications Medication Instructions Recorded Confirmed Last Taken Type Folic Acid [Folvite] 1 mg PO QDAY 10/28/15 12/05/17 10/11/16 History Ondansetron [Zofran Odt] 4 mg PO QID PRN #20 tab.rapdis 07/12/16 12/05/17 Rx Oxycodone HCl/Acetaminophen 1 each PO Q6HR PRN #10 tablet 10/11/16 12/05/17 Unknown Rx [Percocet 10/325 mg] Amlodipine Besylate [Norvasc] 10 mg PO DAILY 12/05/17 12/05/17 Unknown History Morphine ER [Ms Contin ER] 30 mg PO BID 12/05/17 12/05/17 Unknown History Clindamycin [Clindamycin CAP] 300 mg PO Q8H #15 cap 12/07/17 Unknown Rx Tramadol HCl [Ultram] 50 mg PO Q6HR PRN #15 tablet 01/23/18 Unknown Rx ED Physical Exam - General Limitations: No Limitations General appearance: alert, in no apparent distress - Head Head exam: Present: atraumatic, normocephalic - Eye Eye exam: Present: normal appearance, PERRL, EOMI, other (visual acuity intact to finger counting, color perception, reading at a close distance). Absent: nystagmus - ENT ENT exam: Present: normal exam, normal orophraynx, mucous membranes moist, normal external ear exam - Neck Neck exam: Present: normal inspection, full ROM. Absent: tenderness, meningismus - Respiratory Respiratory exam: Present: normal lung sounds bilaterally, other (there is a right-sided thoracic wall port, with no redness, pus or streaking). Absent: respiratory distress, chest wall tenderness - Cardiovascular Cardiovascular Exam: Present: regular rate, normal rhythm, normal heart sounds. Absent: bradycardia, tachycardia, irregular rhythm, systolic murmur, diastolic murmur, rubs, gallop - GI/Abdominal GI/Abdominal exam: Present: soft. Absent: distended, tenderness, guarding, rebound, rigid, pulsatile mass - Extremities Exam Extremities exam: Present: normal inspection, full ROM, tenderness (there is no redness, pus or streaking in the lower extremities), normal capillary refill, other (there is long bony tenderness in the lower extremities. 2+ pulses noted in the upper, lower extremities. Compartments soft.). Absent: pedal edema, joint swelling, calf tenderness (there is no palpable cord. There is negative Homans sign.) - Back Exam Back exam: Present: normal inspection, full ROM, paraspinal tenderness - Neurological Exam Neurological exam: Present: alert, oriented X3, CN II-XII intact, normal gait ( there is no pass pointing. There is normal [id number]. There is normal gait. There is negative Romberg examination), other (Extraocular movements intact. Tongue midline. No facial droop. Facial sensation intact to light touch in the V1, V2, V3 distribution bilaterally. 5 and 5 strength in 4 extremities.. Sensation is intact to light touch in 4 extremities.). Absent: motor sensory deficit - Psychiatric Psychiatric exam: Present: anxious - Skin Skin exam: Present: warm, dry, intact, normal color. Absent: rash ED Course Vital Signs 01/22/18 01/23/18 01/23/18 23:31 05:30 06:00 Temperature 98.8 F Pulse Rate 66 60 60 Respiratory 18 14 Rate Blood Pressure 141/96 146/107 132/81 Blood Pressure [Left] O2 Sat by Pulse 100 100 Oximetry 01/23/18 01/23/18 01/23/18 06:16 07:16 08:00 Temperature Pulse Rate 80 84 69 Respiratory 10 L Rate Blood Pressure 132/81 127/78 Blood Pressure 150/105 [Left] O2 Sat by Pulse 100 93 Oximetry 01/23/18 01/23/18 01/23/18 08:15 08:46 09:07 Temperature Pulse Rate 82 71 71 Respiratory 18 14 14 Rate Blood Pressure Blood Pressure 126/84 179/105 158/98 [Left] O2 Sat by Pulse 100 100 Oximetry 01/23/18 09:57 Temperature Pulse Rate 71 Respiratory 18 Rate Blood Pressure Blood Pressure 148/105 [Left] O2 Sat by Pulse 94 Oximetry - Reevaluation(s) Reevaluation #1: 01/23/18 07:28 Differential diagnosis, including but not limited to: Sickle cell disease, pneumonia, urinary tract infection, orthostasis, vagal event, electrolyte derangement, side effects secondary to antihypertensive medication Assessment and plan: 42-year-old female with a primary complaint of sickle cell disease, with no obvious inciting factor, and nonspecific dizziness, which she describes as a sensation of head floating. She is compliant with her systemic anticoagulation, and has a GCS of 15, with an NIH score of 0, and has an unremarkable and normal neurologic examination. I suspect a combination of mild volume depletion as well as new onset compliance with her antihypertensive therapy. She will be treated with IV fluids and pain medication, laboratory studies, chest x-ray, noncontrast CT scan of the brain pending. We will reassess after initial data points. Reevaluation #2: 01/23/18 10:04 Patient continues to walk with steady gait. Objective testing unremarkable. CT scan of the brain is negative, x-ray of the chest is unremarkable, urinalysis is negative. Still having pain. Additional pain medication ordered. Reevaluation #3: 01/23/18 10:25 The patient reports that she feels much improved and reports readiness for discharge. The patient is showing me pictures of her grandson on her cellular phone. She reports that she will be okay to be discharged home with tramadol. She reports that she is able to follow up with her outpatient physician. She' ll be discharged at this time. ED Medical Decision Making - Lab Data Result diagrams: 01/22/18 05:38 01/23/18 08:09 Vital Signs 01/22/18 01/23/18 01/23/18 23:31 05:30 06:00 Temperature 98.8 F Pulse Rate 66 60 60 Respiratory 18 14 Rate Blood Pressure 141/96 146/107 132/81 O2 Sat by Pulse 100 100 Oximetry 01/23/18 01/23/18 06:16 07:16 Temperature Pulse Rate 80 84 Respiratory Rate Blood Pressure 132/81 127/78 O2 Sat by Pulse 100 Oximetry Lab Results 01/22/18 01/22/18 Range/Units 05:38 05:38 WBC 6.8 (4.5-11.0) K/mm3 RBC 4.22 (3.65-5.03) M/mm3 Hgb 9.0 L (10.1-14.3) gm/dl Hct 27.7 L (30.3-42.9) % MCV 66 L (79-97) fl MCH 21 L (28-32) pg MCHC 32 (30-34) % RDW 27.5 H (13.2-15.2) % Plt Count 371 (140-440) K/mm3 Lymph % (Auto) Logistics Solution Manager Add Manual Diff Complete Total Counted 100 Seg Neutrophils % Logistics Solution Manager Seg Neuts % (Manual) 49.0 (40.0-70.0) % Band Neutrophils % 0 % Lymphocytes % (Manual) 33.0 (13.4-35.0) % Reactive Lymphs % (Man) 0 % Monocytes % (Manual) 12.0 H (0.0-7.3) % Eosinophils % (Manual) 6.0 H (0.0-4.3) % Basophils % (Manual) 0 (0.0-1.8) % Metamyelocytes % 0 % Myelocytes % 0 % Promyelocytes % 0 % Blast Cells % 0 % Nucleated RBC % Not Reportable Seg Neutrophils # Man 3.3 (1.8-7.7) K/mm3 Band Neutrophils # 0.0 K/mm3 Lymphocytes # (Manual) 2.2 (1.2-5.4) K/mm3 Abs React Lymphs (Man) 0.0 K/mm3 Monocytes # (Manual) 0.8 (0.0-0.8) K/mm3 Eosinophils # (Manual) 0.4 (0.0-0.4) K/mm3 Basophils # (Manual) 0.0 (0.0-0.1) K/mm3 Metamyelocytes # 0.0 K/mm3 Myelocytes # 0.0 K/mm3 Promyelocytes # 0.0 K/mm3 Blast Cells # 0.0 K/mm3 WBC Morphology Not Reportable Hypersegmented Neuts Not Reportable Hyposegmented Neuts Not Reportable Hypogranular Neuts Not Reportable Smudge Cells Not Reportable Toxic Granulation Not Reportable Toxic Vacuolation Not Reportable Dohle Bodies Not Reportable Pelger-Huet Anomaly Not Reportable Pili Rods Not Reportable Platelet Estimate Consistent w auto Clumped Platelets Not Reportable Plt Clumps, EDTA Not Reportable Large Platelets 1+ Giant Platelets Not Reportable Platelet Satelliting Not Reportable Plt Morphology Comment Not Reportable RBC Morphology Not Reportable Dimorphic RBCs Yes Polychromasia Not Reportable Hypochromasia 2+ Poikilocytosis Not Reportable Anisocytosis 2+ Microcytosis Not Reportable Macrocytosis Not Reportable Spherocytes Not Reportable Pappenheimer Bodies Not Reportable Sickle Cells Not Reportable Target Cells 2+ Tear Drop Cells Not Reportable Ovalocytes Not Reportable Helmet Cells Not Reportable [place] Bodies Not Reportable Ararat Rings Not Reportable Bradford Cells Not Reportable Bite Cells Not Reportable Crenated Cell Not Reportable Elliptocytes Not Reportable Acanthocytes (Spur) Not Reportable Rouleaux Not Reportable Hemoglobin C Crystals Not Reportable Schistocytes Not Reportable Malaria parasites Not Reportable Percent Retic 0.94 (0.78-2.58) % Aron Bodies Not Reportable Hem Pathologist Commnt No HCG, Qual Negative (Negative) - EKG Data -: EKG Interpreted by Me EKG shows normal: sinus rhythm, axis, intervals, QRS complexes, ST-T waves Rate: normal - EKG Data When compared to previous EKG there are: no significant change Interpretation: unchanged when compared t (10/03/2017) 01/23/18 07:30 Sinus, 65 bpm, normal axis, normal intervals, unremarkable EKG, this EKG is not an ST elevation myocardial infarction. Critical care attestation.: If time is entered above; I have spent that time in minutes in the direct care of this critically ill patient, excluding procedure time. ED Disposition Clinical Impression: Sickle cell pain crisis Disposition: DC-01 TO HOME OR SELFCARE Is pt being admited?: No Does the pt Need Aspirin: No Condition: Good Instructions: Sickle Cell Crisis (ED) Additional Instructions: Take the pain medication as needed/directed. Follow up with a primary care doctor or station chief within the next 7-10 days. Return to the ER right away with new pain, worsening pain, migration of pain, projectile vomiting, change in mental status, confusion, inability to tolerate liquids. Referrals: PATRICIA BEE DO [Staff Physician] - 3-5 Days
[2018-01-23 08:23] LABS: INR 1.16 (0.87-1.13)
[2018-01-23 08:24] LABS: Partial Thromboplastin Time 28.6 Sec. (24.2-36.6)
[2018-01-23 08:27] LABS: Alanine Aminotransferase < 5 units/L (7-56); Albumin 4.1 g/dL (3.9-5); BUN/Creatinine Ratio 17; Blood Urea Nitrogen 10 mg/dL (7-17); Calcium 10.2 mg/dL (8.4-10.2); Hemolysis Index 0
--- NOTE | 2018-01-23 08:54 | Cat Scan Report ---
FINAL REPORT EXAM: CT HEAD/BRAIN WO CON HISTORY: dizzy TECHNIQUE: CT of the head was performed. No intravenous contrast was administered. PRIORS: None. FINDINGS: There is no evidence of intracranial hemorrhage. There is no edema, mass effect or midline shift. There are no abnormal extra-axial fluid collections. The ventricles are appropriate for brain volume. There is no skull fracture seen. The visualized aspects of the sinuses are clear. IMPRESSION: There is no acute intracranial abnormality identified.
--- NOTE | 2018-01-23 08:56 | XRay Report ---
FINAL REPORT EXAM: XR CHEST ROUTINE 2V HISTORY: dizzy hx of pna TECHNIQUE: Chest, two views PRIORS: 11/28/2017 FINDINGS: There is a Port-A-Cath on the right. Heart size and mediastinal contours are unchanged. Pulmonary vasculature is not congested. The lungs are clear. There are no pleural effusion seen. There is no evidence of pneumothorax. IMPRESSION: There is no acute abnormality identified.
[2018-01-23 09:19] LABS: Bilirubin,Urine NEG (Negative); Blood,Urine NEG (Negative); Color,Urine Straw (Yellow); Urobilinogen,Urine < 2.0 mg/dL (<2.0)
[2018-01-23] MEDS ORDERED: BENADRYL PO ONE ×2 (09:28→09:30)
[2018-01-23] MEDS ORDERED: FLUSH HEPARIN IV ONE (11:02)
[2018-01-23 11:40] VITALS: BP 139/96
== END 2018-01-23 11:40 | disposition home or self-care (01) ==
LOC: ED 23:22
DX: D57.219 Sickle-cell/Hb-C disease with crisis, unspecified (principal); I10 Essential (primary) hypertension; Z86.711 Personal history of pulmonary embolism; Z86.718 Personal history of other venous thrombosis and embolism; Z88.2 Allergy status to sulfonamides; Z88.5 Allergy status to narcotic agent; Z88.1 Allergy status to other antibiotic agents; Z90.49 Acquired absence of other specified parts of digestive tract
CPT/HCPCS: 36415; 70450; 71046; 80053; 81001; 82550; 83735; 84703; 85007; 85025; 85045; 85610; 85730; 93005; 93010; 96361; 96374; 96376; 99285; J1170; J1642; Q0163

== ENCOUNTER 2019-10-03 11:40 | Emergency (ER) | payer MEDICARE ==
--- NOTE | 2019-10-03 12:46 | Event Note ---
ED Screening Note Date of service: 10/03/19 Time: 12:45 ED Screening Note: 44-year-old female patient presents with complaints of bilateral lower leg pain due to sickle cell pain crisis x yesterday. 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 Further treatment and workup at subsequent clinical providers discretion. Patient/guardian urged not to elope from the ED as their condition may be serious if not clinically assessed and managed. Initial orders include: labs
[2019-10-03] MEDS ORDERED: HYDROmorphone 1 MG/1 ML INJ IV ONE ×3 (17:22→20:28)
[2019-10-03] MEDS ORDERED: diphenhydrAMINE 50 MG/ML VIAL IV ONE (17:22)
[2019-10-03] MEDS ORDERED: KETOROLAC 30 MG/1 ML INJ IV ONE (17:22)
[2019-10-03] MEDS ORDERED: ONDANSETRON 4 MG/2 ML INJ IV ONE (17:22)
--- NOTE | 2019-10-03 17:26 | Emergency Department Report ---
HPI - General Chief Complaint: Sickle Cell Crisis Time Seen by Provider: 10/03/19 12:45 - HPI HPI: Room 3 The patient is a 44-year-old female present with a chief complaint of sickle cell pain crisis. Patient states her symptoms began 3 days ago with pain in bilateral lower extremities. Patient states the pain is consistent with her sickle cell pain crises. Patient denies any preceding trauma. Patient denies history of fever or cough. Patient currently gives her pain a score of 8/10 ED Past Medical Hx - Past Medical History Previous Medical History?: Yes Hx Hypertension: Yes (14 years old) Hx Deep Vein Thrombosis: Yes Hx Pulmonary Embolism: Yes Hx Sickle Cell Disease: Yes (SC DZ) Additional medical history: Sickle Cell - Surgical History Past Surgical History?: Yes Hx Cholecystectomy: Yes Additional Surgical History: x1,. port R chest - Family History Family history: no significant - Social History Smoking Status: Never Smoker Substance Use Type: None - Medications Home Medications: Home Medications Medication Instructions Recorded Confirmed Last Taken Type Folic Acid [Folvite] 1 mg PO QDAY 10/28/15 12/05/17 10/11/16 History Ondansetron [Zofran Odt] 4 mg PO QID PRN #20 tab.rapdis 07/12/16 12/05/17 10/11/16 Rx Oxycodone HCl/Acetaminophen 1 each PO Q6HR PRN #10 tablet 10/11/16 12/05/17 Unknown Rx [Percocet 10/325 mg] Amlodipine Besylate [Norvasc] 10 mg PO DAILY 12/05/17 12/05/17 Unknown History Morphine ER [Ms Contin ER] 30 mg PO BID 12/05/17 12/05/17 Unknown History Clindamycin [Clindamycin CAP] 300 mg PO Q8H #15 cap 12/07/17 Unknown Rx Tramadol HCl [Ultram] 50 mg PO Q6HR PRN #15 tablet 01/23/18 Unknown Rx HYDROcodone/APAP 5-325 [Bonita 1 each PO Q6HR PRN #10 tablet 10/03/19 Unknown Rx 5/325] ED Review of Systems ROS: Stated complaint: SICKLE PAIN Other details as noted in HPI Constitutional: denies: fever Respiratory: no symptoms reported Endocrine: no symptoms reported Musculoskeletal: myalgia Hematological/Lymphatic: other (Sickle cell pain crisis) Physical Exam - Physical Exam Vital Signs: Vital Signs 10/03/19 12:45 Temperature 99.1 F Pulse Rate 82 Respiratory 18 Rate Blood Pressure 133/92 O2 Sat by Pulse 100 Oximetry Physical Exam: GENERAL: The patient is well-developed well-nourished well-nourished female lying on stretcher rocking back and forth using cell phone. [] HEENT: Normocephalic. Atraumatic. Extraocular motions are intact. Patient has moist mucous membranes. NECK: Supple. Trachea midline CHEST/LUNGS: Clear to auscultation. There is no respiratory distress noted. HEART/CARDIOVASCULAR: Regular. There is no tachycardia. There is no gallop rub or murmur. 2+ DPs bilaterally ABDOMEN: Abdomen is soft, nontender. Patient has normal bowel sounds. There is no abdominal distention. SKIN: There is no rash. There is no edema. There is no diaphoresis. NEURO: The patient is awake, alert, and oriented. The patient is cooperative. The patient has normal speech MUSCULOSKELETAL: There is no evidence of acute injury. ED Course Vital Signs 10/03/19 12:45 Temperature 99.1 F Pulse Rate 82 Respiratory 18 Rate Blood Pressure 133/92 O2 Sat by Pulse 100 Oximetry ED Medical Decision Making - Lab Data Result diagrams: 10/03/19 Unknown 10/03/19 Unknown Laboratory Tests 10/03/19 10/03/19 10/03/19 Unknown Unknown Unknown WBC 10.6 RBC 3.44 L Hgb 9.7 L Hct 28.5 L MCV 83 MCH 28 MCHC 34 RDW 18.1 H Plt Count 356 Percent Retic 2.47 Sodium 132 L Potassium 3.8 Chloride 103.5 Carbon Dioxide 19 L Anion Gap 13 BUN 12 Creatinine 0.7 Estimated GFR > 60 BUN/Creatinine Ratio 17 Glucose 77 Calcium 11.1 H Total Bilirubin 0.90 AST 75 H ALT 24 Alkaline Phosphatase 71 Total Protein 8.7 H Albumin 4.6 Albumin/Globulin Ratio 1.1 Urine Color Yellow Urine Turbidity Clear Urine pH 6.0 Ur Specific [place] 1.011 Urine Protein <15 mg/dl Urine Glucose (UA) Neg Urine Ketones Neg Urine Blood Neg Urine Nitrite Neg Urine Bilirubin Neg Urine Urobilinogen 2.0 Ur Leukocyte Esterase Tr Urine WBC (Auto) 1.0 Urine RBC (Auto) 4.0 U Epithel Cells (Auto) 5.0 Urine Bacteria (Auto) 1+ Urine HCG, Qual Negative - Differential Diagnosis Sickle cell pain crisis Critical care attestation.: If time is entered above; I have spent that time in minutes in the direct care of this critically ill patient, excluding procedure time. ED Disposition Clinical Impression: Sickle cell pain crisis Disposition: DC-01 TO HOME OR SELFCARE Is pt being admited?: No Does the pt Need Aspirin: No Condition: Stable Instructions: Sickle Cell Crisis (ED) Additional Instructions: Return to the emergency department should you develop worsening symptoms, inability to tolerate food or liquids, high fever or any other concerns Prescriptions: HYDROcodone/APAP 5-325 [Bonita 5/325] 1 each PO Q6HR PRN #10 tablet PRN Reason: Pain Referrals: PRIMARY CARE, [Primary Care Provider] - 3-5 Days Time of Disposition: 21:25
[2019-10-03] MEDS ORDERED: D5W/0.2% NACL 1,000 ML IV SCH (18:00)
[2019-10-03 19:04] VITALS: BP 155/101
[2019-10-03 19:55] LABS: Bacteria,Urine 1+ /HPF (Negative); Bilirubin,Urine NEG (Negative); Blood,Urine NEG (Negative); Color,Urine Yellow (Yellow); Protein,Urine <15 mg/dL mg/dL (Negative)
[2019-10-03 19:56] LABS: HCG Qualitative,Urine Negative (Negative)
[2019-10-03 20:54] LABS: Hematocrit 28.5 % (30.3-42.9); Hemoglobin 9.7 gm/dl (10.1-14.3); Mean Corpuscular HGB Conc 34 % (30-34); Mean Corpuscular Volume 83 fl (79-97); Platelet Count 356 K/mm3 (140-440); Red Blood Count 3.44 M/mm3 (3.65-5.03); Red Cell Distribution Width 18.1 % (13.2-15.2)
[2019-10-03 21:13] LABS: Alanine Aminotransferase 24 units/L (7-56); Albumin 4.6 g/dL (3.9-5); BUN/Creatinine Ratio 17; Blood Urea Nitrogen 12 mg/dL (7-17); Calcium 11.1 mg/dL (8.4-10.2); Hemolysis Index 0
[2019-10-03 21:33] LABS: Total Cells Counted 100
[2019-10-03 21:34] LABS: Giant Platelets Rare; RBC Morphology Normal
== END 2019-10-03 21:53 | disposition home or self-care (01) ==
LOC: ED 11:40
DX: D57.00 Hb-SS disease with crisis, unspecified (principal); I10 Essential (primary) hypertension; Z86.718 Personal history of other venous thrombosis and embolism; Z86.711 Personal history of pulmonary embolism; Z90.49 Acquired absence of other specified parts of digestive tract; Z98.890 Other specified postprocedural states; Z79.899 Other long term (current) drug therapy; Z88.8 Allergy status to other drugs, medicaments and biological substances
CPT/HCPCS: 36415; 80053; 81001; 81025; 85007; 85025; 85045; 96374; 96375; 96376; 99283; J1170; J1200; J1885; J2405

== ENCOUNTER 2019-12-18 09:39 | Emergency (ER) | payer MEDICARE ==
[2019-12-18] MEDS ORDERED: SODIUM CHLORIDE 0.9% 1000 ML 1,000 ML IV ONE ×2 (13:29)
--- NOTE | 2019-12-18 13:33 | Emergency Department Report ---
ED General Adult HPI - General Chief complaint: Sickle Cell Crisis Stated complaint: SICKLE CELL Time Seen by Provider: 12/18/19 13:14 Source: patient Mode of arrival: Ambulatory Limitations: No Limitations - History of Present Illness Initial comments: Patient is 44 years old female with history of sickle cell disease. Patient presented with 3-day history of lower back pain and lower extremity pain that is similar to her previous sickle cell crisis. Patient denied any chest pain or shortness of breath. Patient also denied any fever or chills. No nausea or vomiting. - Related Data Home Medications Medication Instructions Recorded Confirmed Last Taken Folic Acid [Folvite] 1 mg PO QDAY 10/28/15 12/05/17 10/11/16 Amlodipine Besylate [Norvasc] 10 mg PO DAILY 12/05/17 12/05/17 Unknown Morphine ER [Ms Contin ER] 30 mg PO BID 12/05/17 12/05/17 Unknown Previous Rx's Medication Instructions Recorded Last Taken Type Ondansetron [Zofran Odt] 4 mg PO QID PRN #20 tab.rapdis 07/12/16 10/11/16 Rx Oxycodone HCl/Acetaminophen 1 each PO Q6HR PRN #10 tablet 10/11/16 Unknown Rx [Percocet 10/325 mg] Clindamycin [Clindamycin CAP] 300 mg PO Q8H #15 cap 12/07/17 Unknown Rx Tramadol HCl [Ultram] 50 mg PO Q6HR PRN #15 tablet 01/23/18 Unknown Rx HYDROcodone/APAP 5-325 [[place] 1 each PO Q6HR PRN #10 tablet 10/03/19 Unknown Rx 5/325] Allergies Allergy/AdvReac Type Severity Reaction Status Date / Time hydralazine [Hydralazine] Allergy Unknown Verified 10/30/19 07:51 hydroxyurea Allergy Unknown Verified 10/30/19 07:51 levofloxacin [From Levaquin] Allergy Unknown Verified 10/30/19 07:51 morphine Allergy Shortness Verified 10/30/19 07:51 of Breath nalbuphine HCl [From Nubain] Allergy Unknown Verified 10/30/19 07:51 sulfamethoxazole Allergy Unknown Verified 10/30/19 07:51 [From Bactrim] trimethoprim [From Bactrim] Allergy Unknown Verified 10/30/19 07:51 ED Review of Systems ROS: Stated complaint: SICKLE CELL Other details as noted in HPI Comment: All other systems reviewed and negative Constitutional: denies: chills, fever Respiratory: denies: cough, orthopnea, shortness of breath, SOB with exertion, SOB at rest Cardiovascular: denies: chest pain, palpitations Gastrointestinal: denies: abdominal pain, nausea, vomiting Musculoskeletal: arthralgia, myalgia Neurological: denies: headache, weakness, numbness, paresthesias, confusion, abnormal gait ED Past Medical Hx - Past Medical History Previous Medical History?: Yes Hx Hypertension: Yes (14 years old) Hx Congestive Heart Failure: No Hx Diabetes: No Hx Deep Vein Thrombosis: Yes Hx Pulmonary Embolism: Yes Hx Sickle Cell Disease: Yes (SC DZ) Hx Asthma: No Hx COPD: No Hx Tuberculosis: No Additional medical history: Sickle Cell - Surgical History Past Surgical History?: Yes Hx Cholecystectomy: Yes Additional Surgical History: x1,. port R chest - Social History Smoking Status: Never Smoker Substance Use Type: Alcohol, Prescribed - Medications Home Medications: Home Medications Medication Instructions Recorded Confirmed Last Taken Type Folic Acid [Folvite] 1 mg PO QDAY 10/28/15 12/05/17 10/11/16 History Ondansetron [Zofran Odt] 4 mg PO QID PRN #20 tab.rapdis 07/12/16 12/05/17 10/11/16 Rx Oxycodone HCl/Acetaminophen 1 each PO Q6HR PRN #10 tablet 10/11/16 12/05/17 Unknown Rx [Percocet 10/325 mg] Amlodipine Besylate [Norvasc] 10 mg PO DAILY 12/05/17 12/05/17 Unknown History Morphine ER [Ms Contin ER] 30 mg PO BID 12/05/17 12/05/17 Unknown History Clindamycin [Clindamycin CAP] 300 mg PO Q8H #15 cap 12/07/17 Unknown Rx Tramadol HCl [Ultram] 50 mg PO Q6HR PRN #15 tablet 01/23/18 Unknown Rx HYDROcodone/APAP 5-325 [[place] 1 each PO Q6HR PRN #10 tablet 10/03/19 Unknown Rx 5/325] ED Physical Exam - General Limitations: No Limitations General appearance: alert, in no apparent distress - Head Head exam: Present: atraumatic, normocephalic, normal inspection - Eye Eye exam: Present: normal appearance - ENT ENT exam: Present: normal exam, normal orophraynx, mucous membranes moist - Neck Neck exam: Present: normal inspection, full ROM. Absent: tenderness, meningismus, lymphadenopathy, thyromegaly - Respiratory Respiratory exam: Present: normal lung sounds bilaterally - Cardiovascular Cardiovascular Exam: Present: regular rate, normal rhythm, normal heart sounds - GI/Abdominal GI/Abdominal exam: Present: soft, normal bowel sounds. Absent: distended, tenderness, guarding, rebound, rigid, organomegaly, mass, bruit, pulsatile mass, hernia - Extremities Exam Extremities exam: Present: normal inspection, full ROM, normal capillary refill. Absent: pedal edema, calf tenderness - Back Exam Back exam: Present: normal inspection, full ROM. Absent: CVA tenderness (R), CVA tenderness (L) - Neurological Exam Neurological exam: Present: alert, oriented X3, CN II-XII intact, normal gait, reflexes normal - Psychiatric Psychiatric exam: Present: normal mood - Skin Skin exam: Present: warm, intact, normal color ED Course Vital Signs 12/18/19 12/18/19 12/18/19 09:51 14:51 15:47 Temperature 98.4 F Pulse Rate 76 Respiratory 18 Rate Blood Pressure 130/97 Blood Pressure 163/103 151/91 [Left] O2 Sat by Pulse 98 Oximetry 12/18/19 16:00 Temperature Pulse Rate Respiratory Rate Blood Pressure Blood Pressure 148/81 [Left] O2 Sat by Pulse Oximetry ED Medical Decision Making - Lab Data Result diagrams: 12/18/19 10:31 12/18/19 10:31 - Medical Decision Making Patient is 44 years old female with history of sickle cell disease. Patient presented with 3-day history of lower back pain and lower extremity pain that is similar to her previous sickle cell crisis. Patient denied any chest pain or shortness of breath. Patient also denied any fever or chills. No nausea or vomiting. Patient received 2 L of normal saline. Patient received morphine x2, fentanyl x1. Labs reviewed and showed chronic anemia however patient reticulocyte count is 1.7. Patient kept asking for Dilaudid. Patient is exhibiting drug-seeking behavior. Patient advised to follow-up with her primary care doctor for referral to pain medicine clinic.. Critical care attestation.: If time is entered above; I have spent that time in minutes in the direct care of this critically ill patient, excluding procedure time. ED Disposition Clinical Impression: Anemia, Acute low back pain Disposition: DC- TO HOME OR SELFCARE Is pt being admited?: No Condition: Stable Instructions: Anemia (ED), Chronic Back Pain (ED) Referrals: PRIMARY CARE, [Primary Care Provider] - 3-5 Days
[2019-12-18] MEDS ORDERED: MORPHINE 4 MG/1 ML INJ IV ONE (13:39)
[2019-12-18] MEDS: diphenhydrAMINE 50 MG/ML VIAL IV ONE ×2 (14:36→15:42)
[2019-12-18] MEDS: fentaNYL 250 MCG/5 ML INJ IV ONE ×2 (14:41→16:50)
[2019-12-18 15:05] LABS: Hematocrit 25.9 % (30.3-42.9); Hemoglobin 8.6 gm/dl (10.1-14.3); Mean Corpuscular HGB Conc 33 % (30-34); Mean Corpuscular Volume 72 fl (79-97); Platelet Count 339 K/mm3 (140-440); Red Blood Count 3.58 M/mm3 (3.65-5.03); Red Cell Distribution Width 19.1 % (13.2-15.2)
[2019-12-18] MEDS ORDERED: MORPHINE 2 MG/1 ML INJ IV ONE (15:32)
[2019-12-18] MEDS ORDERED: diphenhydrAMINE 50 MG/ML VIAL IV ONE (15:39)
[2019-12-18] MEDS ORDERED: diphenhydrAMINE 50 MG/ML VIAL ONE (15:40)
[2019-12-18 15:55] LABS: Alanine Aminotransferase 5 units/L (7-56); Albumin 4.4 g/dL (3.9-5); BUN/Creatinine Ratio 15; Blood Urea Nitrogen 12 mg/dL (7-17); Calcium 10.6 mg/dL (8.4-10.2); Hemolysis Index 0
[2019-12-18 16:07] LABS: Anisocytosis 1+; Total Cells Counted 100
[2019-12-18 16:08] LABS: Hypochromasia 1+; Ovalocytes Few; Platelet Estimate Consistent w Auto; Poikilocytosis 2+; Target Cells 2+; Tear Drop Cells Few
[2019-12-18] MEDS ORDERED: fentaNYL 100 MCG/2 ML INJ ONE (16:45)
[2019-12-18] MEDS ORDERED: fentaNYL 100 MCG/2 ML INJ IV ONE (16:48)
[2019-12-18 17:41] VITALS: BP 159/99
== END 2019-12-18 17:41 | disposition home or self-care (01) ==
LOC: ED 09:39
DX: D64.9 Anemia, unspecified (principal); M54.5 Low back pain; I10 Essential (primary) hypertension; Z79.899 Other long term (current) drug therapy; Z88.8 Allergy status to other drugs, medicaments and biological substances; Z88.6 Allergy status to analgesic agent; Z90.49 Acquired absence of other specified parts of digestive tract; Z98.890 Other specified postprocedural states
CPT/HCPCS: 36415; 80053; 85007; 85025; 85045; 96361; 96374; 96375; 96376; 99283; J1200; J1642; J2270; J3010; J7030

== ENCOUNTER 2020-01-03 13:21 | Emergency (ER) | payer MEDICARE ==
[2020-01-03] MEDS ORDERED: HYDROmorphone 1 MG/1 ML INJ IV ONE ×3 (15:24→17:59)
[2020-01-03] MEDS ORDERED: diphenhydrAMINE 50 MG/ML VIAL IV ONE (15:24)
[2020-01-03] MEDS ORDERED: ONDANSETRON 4 MG/2 ML INJ IV ONE (15:24)
[2020-01-03] MEDS ORDERED: KETOROLAC 30 MG/1 ML INJ IV ONE (15:24)
--- NOTE | 2020-01-03 15:38 | Emergency Department Report ---
HPI - General Chief Complaint: Pain General Time Seen by Provider: 01/03/20 14:25 - HPI HPI: Room 26 The patient is a 44-year-old female present with a chief complaint of sickle cell pain crisis. Patient states her symptoms began this morning with pain in her legs and back. Patient states the pain is consistent with her sickle cell pain. Patient denies history of fever. Patient gives her pain a score of 8/10 ED Past Medical Hx - Past Medical History Hx Hypertension: Yes (14 years old) Hx Deep Vein Thrombosis: Yes Hx Pulmonary Embolism: Yes Hx Sickle Cell Disease: Yes (SC DZ) Additional medical history: Sickle Cell - Surgical History Hx Cholecystectomy: Yes Additional Surgical History: x1,. port R chest - Family History Family history: no significant - Social History Smoking Status: Never Smoker Substance Use Type: None - Medications Home Medications: Home Medications Medication Instructions Recorded Confirmed Last Taken Type Folic Acid [Folvite] 1 mg PO QDAY 10/28/15 12/05/17 10/11/16 History Ondansetron [Zofran Odt] 4 mg PO QID PRN #20 tab.rapdis 07/12/16 12/05/17 10/11/16 Rx Oxycodone HCl/Acetaminophen 1 each PO Q6HR PRN #10 tablet 10/11/16 12/05/17 Unknown Rx [Percocet 10/325 mg] Amlodipine Besylate [Norvasc] 10 mg PO DAILY 12/05/17 12/05/17 Unknown History Morphine ER [Ms Contin ER] 30 mg PO BID 12/05/17 12/05/17 Unknown History Clindamycin [Clindamycin CAP] 300 mg PO Q8H #15 cap 12/07/17 Unknown Rx Tramadol HCl [Ultram] 50 mg PO Q6HR PRN #15 tablet 01/23/18 Unknown Rx HYDROcodone/APAP 5-325 [[place] 1 each PO Q6HR PRN #10 tablet 10/03/19 Unknown Rx 5/325] Ketorolac [Toradol] 10 mg PO Q6H PRN #20 tablet 12/18/19 Unknown Rx HYDROcodone/APAP 5-325 [[place] 1 - 2 each PO Q6HR PRN #10 tablet 01/03/20 Unknown Rx 5/325] ED Review of Systems ROS: Stated complaint: SICKLE CELL PAIN Other details as noted in HPI Constitutional: denies: fever Respiratory: no symptoms reported Endocrine: no symptoms reported Hematological/Lymphatic: other (Sickle cell pain crisis) Physical Exam - Physical Exam Vital Signs: Vital Signs 01/03/20 13:23 Temperature 98.1 F Pulse Rate 75 Respiratory 17 Rate Blood Pressure 186/119 O2 Sat by Pulse 100 Oximetry Physical Exam: GENERAL: The patient is well-developed well-nourished female lying on stretcher rocking back and forth appearing to be in mild discomfort. [] HEENT: Normocephalic. Atraumatic. Extraocular motions are intact. Patient has moist mucous membranes. NECK: Supple. Trachea midline CHEST/LUNGS: Clear to auscultation. There is no respiratory distress noted. HEART/CARDIOVASCULAR: Regular. There is no tachycardia. There is no gallop rub or murmur. ABDOMEN: Abdomen is soft, nontender. Patient has normal bowel sounds. There is no abdominal distention. SKIN: There is no rash. There is no edema. There is no diaphoresis. NEURO: The patient is awake, alert, and oriented. The patient is cooperative. The patient has normal speech MUSCULOSKELETAL: There is no evidence of acute injury. ED Course Vital Signs 01/03/20 13:23 Temperature 98.1 F Pulse Rate 75 Respiratory 17 Rate Blood Pressure 186/119 O2 Sat by Pulse 100 Oximetry ED Medical Decision Making - Lab Data Result diagrams: 01/03/20 16:10 01/03/20 16:10 Laboratory Tests 01/03/20 01/03/20 01/03/20 16:10 16:10 16:10 WBC 11.2 H RBC 3.65 Hgb 8.6 L Hct 25.5 L MCV 70 L MCH 24 L MCHC 34 RDW 19.6 H Plt Count 332 [place] % (Auto) Performance Improvement Coordinator Baso % (Auto) Performance Improvement Coordinator Percent Retic 2.27 Sodium 137 Potassium 4.1 Chloride 104.3 Carbon Dioxide 23 Anion Gap 14 BUN 12 Creatinine 0.7 Estimated GFR > 60 BUN/Creatinine Ratio 17 Glucose 96 Calcium 11.6 H HCG, Qual Negative - Differential Diagnosis Sickle cell pain crisis Critical care attestation.: If time is entered above; I have spent that time in minutes in the direct care of this critically ill patient, excluding procedure time. ED Disposition Clinical Impression: Sickle cell pain crisis, Hypercalcemia Disposition: - TO HOME OR SELFCARE Is pt being admited?: No Does the pt Need Aspirin: No Condition: Stable Instructions: Hypercalcemia (ED) Additional Instructions: Return to the emergency department should you develop worsening symptoms, inability to tolerate food or liquids, high fever or any other concerns Prescriptions: HYDROcodone/APAP 5-325 [[place] 5/325] 1 - 2 each PO Q6HR PRN #10 tablet PRN Reason: Pain Referrals: PRIMARY CAREMD [Referring] - 3-5 Days MARIANNA RUANO MD [Staff Physician] - 3-5 Days (Dr. Ruano is an adult health clinical nurse specialist. Please follow-up with her for further evaluation) Time of Disposition: 18:01
[2020-01-03] MEDS ORDERED: D5W/0.2% NACL 1,000 ML IV SCH (16:00)
[2020-01-03 16:26] LABS: Hematocrit 25.5 % (30.3-42.9); Hemoglobin 8.6 gm/dl (10.1-14.3); Red Blood Count 3.65 M/mm3 (3.65-5.03)
[2020-01-03 16:27] LABS: Mean Corpuscular HGB Conc 34 % (30-34); Mean Corpuscular Volume 70 fl (79-97); Platelet Count 332 K/mm3 (140-440); Red Cell Distribution Width 19.6 % (13.2-15.2)
[2020-01-03 16:46] LABS: Blood Urea Nitrogen 12 mg/dL (7-17); Calcium 11.6 mg/dL (8.4-10.2); Hemolysis Index 2
[2020-01-03 16:48] LABS: BUN/Creatinine Ratio 17
[2020-01-03 18:09] LABS: Basophils % (Manual) 0 % (0.0-1.8); Eosinophils % (Manual) 0 % (0.0-4.3); Monocytes % (Manual) 0 % (0.0-7.3); Total Cells Counted 100
[2020-01-03 18:10] LABS: Anisocytosis 1+; Hypochromasia 1+; Poikilocytosis 3+; Target Cells 3+
[2020-01-03 18:11] LABS: Platelet Estimate Consistent w Auto; Stomatocytes Few
[2020-01-03 18:31] VITALS: BP 172/102
== END 2020-01-03 18:51 | disposition home or self-care (01) ==
LOC: ED 13:21
DX: D57.819 Other sickle-cell disorders with crisis, unspecified (principal); E83.52 Hypercalcemia; Z88.1 Allergy status to other antibiotic agents; Z88.6 Allergy status to analgesic agent; Z88.8 Allergy status to other drugs, medicaments and biological substances
CPT/HCPCS: 36415; 80048; 84703; 85007; 85025; 85045; 96361; 96374; 96375; 96376; 99283; J1170; J1200; J1642; J1885; J2405

== ENCOUNTER 2020-06-17 07:53 | Emergency (ER) | payer MEDICARE ==
[2020-06-17] MEDS ORDERED: HYDROmorphone 1 MG/1 ML INJ IV ONE ×3 (08:30→11:07)
[2020-06-17] MEDS ORDERED: KETOROLAC 30 MG/1 ML INJ IV ONE (08:30)
[2020-06-17] MEDS ORDERED: ONDANSETRON 4 MG/2 ML INJ IV ONE (08:30)
[2020-06-17] MEDS ORDERED: diphenhydrAMINE 50 MG/ML VIAL IV ONE (08:30)
--- NOTE | 2020-06-17 08:39 | Emergency Department Report ---
HPI - General Chief Complaint: Sickle Cell Crisis Time Seen by Provider: 06/17/20 08:30 - HPI HPI: Room 3 The patient is a 45-year-old female present with a chief complaint of sickle cell pain crisis. The patient states her symptoms began 2 days ago with pain in the middle of her back and bilateral lower extremities. Patient states the pain feels consistent with her previous sickle cell pain crises. Patient denies history of fever. Patient gives her pain a score of 7/10 ED Past Medical Hx - Past Medical History Previous Medical History?: Yes Hx Hypertension: Yes (14 years old) Hx Deep Vein Thrombosis: Yes Hx Pulmonary Embolism: Yes Hx Sickle Cell Disease: Yes (SC DZ) Additional medical history: Sickle Cell - Surgical History Past Surgical History?: Yes Hx Cholecystectomy: Yes Additional Surgical History: x1,. port R chest, port right arm - Family History Family history: no significant - Social History Smoking Status: Never Smoker Substance Use Type: Alcohol - Medications Home Medications: Home Medications Medication Instructions Recorded Confirmed Last Taken Type Folic Acid [Folvite] 1 mg PO QDAY 10/28/15 12/05/17 10/11/16 History Ondansetron [Zofran Odt] 4 mg PO QID PRN #20 tab.rapdis 07/12/16 12/05/17 10/11/16 Rx Oxycodone HCl/Acetaminophen 1 each PO Q6HR PRN #10 tablet 10/11/16 12/05/17 Unknown Rx [Percocet 10/325 mg] Amlodipine Besylate [Norvasc] 10 mg PO DAILY 12/05/17 12/05/17 Unknown History Morphine ER [Ms Contin ER] 30 mg PO BID 12/05/17 12/05/17 Unknown History Clindamycin [Clindamycin CAP] 300 mg PO Q8H #15 cap 12/07/17 Unknown Rx Tramadol HCl [Ultram] 50 mg PO Q6HR PRN #15 tablet 01/23/18 Unknown Rx HYDROcodone/APAP 5-325 [[place] 1 each PO Q6HR PRN #10 tablet 10/03/19 Unknown Rx 5/325] Ketorolac [Toradol] 10 mg PO Q6H PRN #20 tablet 12/18/19 Unknown Rx HYDROcodone/APAP 5-325 [[place] 1 - 2 each PO Q6HR PRN #10 tablet 01/03/20 Unknow n Rx 5/325] HYDROcodone/APAP 5-325 [[place] 1 each PO Q6HR PRN #14 tablet 06/17/20 Unknown Rx 5/325] ED Review of Systems ROS: Stated complaint: SICKLE CELL PAIN Other details as noted in HPI Constitutional: denies: fever Eyes: denies: eye pain ENT: denies: throat pain Respiratory: no symptoms reported Cardiovascular: denies: chest pain Endocrine: no symptoms reported Gastrointestinal: denies: abdominal pain Genitourinary: denies: dysuria Musculoskeletal: back pain Neurological: denies: headache Hematological/Lymphatic: other (Sickle cell pain crisis) Physical Exam - Physical Exam Vital Signs: Vital Signs 06/17/20 07:56 Temperature 98.5 F Pulse Rate 66 Respiratory 18 Rate Blood Pressure 160/102 O2 Sat by Pulse 99 Oximetry Physical Exam: GENERAL: The patient is well-developed well-nourished female sitting on stretcher appearing to be in mild discomfort. [] HEENT: Normocephalic. Atraumatic. Extraocular motions are intact. Patient has moist mucous membranes. NECK: Supple. Trachea midline CHEST/LUNGS: Clear to auscultation. There is no respiratory distress noted. HEART/CARDIOVASCULAR: Regular. There is no tachycardia. There is no gallop rub or murmur. ABDOMEN: Abdomen is soft, nontender. Patient has normal bowel sounds. There is no abdominal distention. SKIN: There is no rash. There is no edema. There is no diaphoresis. NEURO: The patient is awake, alert, and oriented. The patient is cooperative. The patient has normal speech and gait. MUSCULOSKELETAL: There is no evidence of acute injury. ED Course Vital Signs 06/17/20 07:56 Temperature 98.5 F Pulse Rate 66 Respiratory 18 Rate Blood Pressure 160/102 O2 Sat by Pulse 99 Oximetry ED Medical Decision Making - Lab Data Result diagrams: 06/17/20 09:40 Laboratory Tests 06/17/20 06/17/20 09:40 09:40 WBC 8.2 RBC 3.46 L Hgb 9.2 L Hct 26.8 L MCV 77 L MCH 27 L MCHC 34 RDW 24.5 H Plt Count 341 Percent Retic 2.64 H Urine Color Yellow Urine Turbidity Slightly-cloudy Urine pH 8.0 H Ur Specific [place] 1.011 Urine Protein <15 mg/dl Urine Glucose (UA) Neg Urine Ketones Neg Urine Blood Neg Urine Nitrite Neg Ur Reducing Substances Not Reportable Urine Bilirubin Neg Urine Ictotest Not Reportable Urine Urobilinogen < 2.0 Ur Leukocyte Esterase Tr Urine WBC (Auto) 2.0 Urine RBC (Auto) 1.0 U Epithel Cells (Auto) 24.0 H Urine HCG, Qual Negative - Differential Diagnosis Sickle cell pain crisis, UTI Critical care attestation.: If time is entered above; I have spent that time in minutes in the direct care of this critically ill patient, excluding procedure time. ED Disposition Clinical Impression: Sickle cell pain crisis Disposition: DC- TO HOME OR SELFCARE Is pt being admited?: No Does the pt Need Aspirin: No Condition: Stable Additional Instructions: Return to the emergency department should you develop worsening symptoms, inability to tolerate food or liquids, high fever or any other concerns Prescriptions: HYDROcodone/APAP 5-325 [[place] 5/325] 1 each PO Q6HR PRN #14 tablet PRN Reason: Pain Referrals: PRIMARY CARE [Primary Care Provider] - 3-5 Days [facility] [Provider Group] - 3-5 Days Time of Disposition: 11:09
[2020-06-17] MEDS ORDERED: D5W/0.2% NACL 1,000 ML IV SCH (09:00)
[2020-06-17 09:56] LABS: Hematocrit 26.8 % (30.3-42.9); Hemoglobin 9.2 gm/dl (10.1-14.3); Mean Corpuscular HGB Conc 34 % (30-34); Mean Corpuscular Volume 77 fl (79-97); Platelet Count 341 K/mm3 (140-440); Red Blood Count 3.46 M/mm3 (3.65-5.03)
[2020-06-17 09:57] LABS: Bilirubin,Urine NEG (Negative); Blood,Urine NEG (Negative); Color,Urine Yellow (Yellow); Protein,Urine <15 mg/dL mg/dL (Negative); Urobilinogen,Urine < 2.0 mg/dL (<2.0)
[2020-06-17 09:58] LABS: Red Cell Distribution Width 24.5 % (13.2-15.2)
[2020-06-17 10:01] LABS: HCG Qualitative,Urine Negative (Negative)
[2020-06-17 11:12] VITALS: BP 142/93
[2020-06-17 11:37] LABS: Blood Urea Nitrogen 10 mg/dL (7-17); Calcium 10.4 mg/dL (8.4-10.2); Hemolysis Index 0
[2020-06-17 11:47] LABS: BUN/Creatinine Ratio 17
[2020-06-17 12:20] LABS: Total Cells Counted 100
[2020-06-17 12:21] LABS: Anisocytosis 2+; Giant Platelets Rare; Target Cells 1+
[2020-06-17 12:22] LABS: Platelet Estimate Consistent w Auto; Schistocytes Few
== END 2020-06-17 11:31 | disposition home or self-care (01) ==
LOC: ED 07:53
DX: D57.00 Hb-SS disease with crisis, unspecified (principal); I10 Essential (primary) hypertension; Z86.718 Personal history of other venous thrombosis and embolism; Z86.711 Personal history of pulmonary embolism; Z90.49 Acquired absence of other specified parts of digestive tract; Z98.890 Other specified postprocedural states; Z79.2 Long term (current) use of antibiotics; Z79.899 Other long term (current) drug therapy; Z88.8 Allergy status to other drugs, medicaments and biological substances
CPT/HCPCS: 36415; 80048; 81001; 81025; 85007; 85025; 85045; 96361; 96374; 96375; 96376; 99284; J1170; J1200; J1642; J1885; J2405

== ENCOUNTER 2020-07-01 08:20 | Emergency (ER) | payer MEDICARE ==
[2020-07-01] MEDS ORDERED: ONDANSETRON 4 MG/2 ML INJ IV ONE (09:54)
[2020-07-01] MEDS ORDERED: HYDROmorphone 1 MG/1 ML INJ IV ONE ×3 (09:54→12:08)
[2020-07-01] MEDS ORDERED: diphenhydrAMINE 50 MG/ML VIAL IV ONE (09:55)
--- NOTE | 2020-07-01 10:23 | Emergency Department Report ---
HPI - General Chief Complaint: Sickle Cell Crisis Time Seen by Provider: 07/01/20 09:54 - HPI HPI: Room 3 The patient is a 45-year-old female present with chief complaint of sickle cell pain crisis. Patient states for the past 2 days she has had pain in her neck back and bilateral lower extremities consistent with previous sickle cell pain crises. Patient denies any history of fever. Patient currently gives her pain a score of 8/10 ED Past Medical Hx - Past Medical History Previous Medical History?: Yes Hx Hypertension: Yes (14 years old) Hx Deep Vein Thrombosis: Yes Hx Pulmonary Embolism: Yes Hx Sickle Cell Disease: Yes (SC DZ) Additional medical history: Sickle Cell - Surgical History Past Surgical History?: Yes Hx Cholecystectomy: Yes Additional Surgical History: x1,. port R chest, port right arm, PICC line inserted 06-22-2020 - Family History Family history: no significant - Social History Smoking Status: Never Smoker Substance Use Type: Alcohol, Prescribed - Medications Home Medications: Home Medications Medication Instructions Recorded Confirmed Last Taken Type Folic Acid [Folvite] 1 mg PO QDAY 10/28/15 12/05/17 10/11/16 History Ondansetron [Zofran Odt] 4 mg PO QID PRN #20 tab.rapdis 07/12/16 12/05/17 10/11/16 Rx Oxycodone HCl/Acetaminophen 1 each PO Q6HR PRN #10 tablet 10/11/16 12/05/17 Unknown Rx [Percocet 10/325 mg] Amlodipine Besylate [Norvasc] 10 mg PO DAILY 12/05/17 12/05/17 Unknown History Morphine ER [Ms Contin ER] 30 mg PO BID 12/05/17 12/05/17 Unknown History Clindamycin [Clindamycin CAP] 300 mg PO Q8H #15 cap 12/07/17 Unknown Rx Tramadol HCl [Ultram] 50 mg PO Q6HR PRN #15 tablet 01/23/18 Unknown Rx HYDROcodone/APAP 5-325 [[place] 1 each PO Q6HR PRN #10 tablet 10/03/19 Unknown Rx 5/325] Ketorolac [Toradol] 10 mg PO Q6H PRN #20 tablet 12/18/19 Unknown Rx HYDROcodone/APAP 5-325 [[place] 1 - 2 each PO Q6HR PRN #10 tablet 01/03/20 Unknown Rx 5/325] HYDROcodone/APAP 5-325 [[place] 1 each PO Q6HR PRN #14 tablet 06/17/20 Unknown Rx 5/325] HYDROcodone/APAP 5-325 [[place] 1 - 2 each PO Q6HR PRN #10 tablet 07/01/20 Unk nown Rx 5/325] ED Review of Systems ROS: Stated complaint: SICKLE CELL PAIN Other details as noted in HPI Constitutional: denies: fever Eyes: denies: eye pain ENT: denies: throat pain Respiratory: no symptoms reported Cardiovascular: denies: chest pain Endocrine: no symptoms reported Gastrointestinal: denies: abdominal pain Genitourinary: denies: dysuria Musculoskeletal: denies: back pain Neurological: denies: headache Hematological/Lymphatic: other (Sickle cell pain crisis) Physical Exam - Physical Exam Vital Signs: Vital Signs 07/01/20 10:08 Temperature 98.2 F Pulse Rate 73 Respiratory 13 Rate Blood Pressure 160/112 [left arm] O2 Sat by Pulse 100 Oximetry Physical Exam: GENERAL: The patient is well-developed well-nourished female lying on stretcher not appearing to be in acute distress. [] HEENT: Normocephalic. Atraumatic. Extraocular motions are intact. Patient has moist mucous membranes. NECK: Supple. Trachea midline CHEST/LUNGS: Clear to auscultation. There is no respiratory distress noted. HEART/CARDIOVASCULAR: Regular. There is no tachycardia. There is no gallop rub or murmur. ABDOMEN: Abdomen is soft, nontender. Patient has normal bowel sounds. There is no abdominal distention. SKIN: There is no rash. There is no edema. There is no diaphoresis. NEURO: The patient is awake, alert, and oriented. The patient is cooperative. The patient has no focal neurologic deficits. The patient has normal speech MUSCULOSKELETAL: There is no evidence of acute injury. ED Course Vital Signs 07/01/20 10:08 Temperature 98.2 F Pulse Rate 73 Respiratory 13 Rate Blood Pressure 160/112 [left arm] O2 Sat by Pulse 100 Oximetry ED Medical Decision Making - Lab Data Result diagrams: 07/01/20 10:37 Laboratory Tests 07/01/20 10:37 WBC 7.7 RBC 3.56 L Hgb 10.0 L Hct 29.9 L MCV 84 MCH 28 MCHC 34 RDW 23.6 H Plt Count 398 [place] % (Auto) Warehouse Clerk Seg Neutrophils % Warehouse Clerk Percent Retic 1.91 - Differential Diagnosis Sickle cell pain crisis Critical care attestation.: If time is entered above; I have spent that time in minutes in the direct care of this critically ill patient, excluding procedure time. ED Disposition Clinical Impression: Sickle cell pain crisis Disposition: DC- TO HOME OR SELFCARE Is pt being admited?: No Does the pt Need Aspirin: No Condition: Stable Additional Instructions: Return to the emergency department should you develop worsening symptoms, inability to tolerate food or liquids, high fever or any other concerns Prescriptions: HYDROcodone/APAP 5-325 [[place] 5/325] 1 - 2 each PO Q6HR PRN #10 tablet PRN Reason: Pain Referrals: REGLA JACOBO,ABDULAZIZ [Other] - 3-5 Days Time of Disposition: 12:10
[2020-07-01] MEDS ORDERED: D5W/0.2% NACL 1,000 ML IV SCH (11:00)
[2020-07-01 11:05] LABS: Hematocrit 29.9 % (30.3-42.9); Mean Corpuscular HGB Conc 34 % (30-34); Mean Corpuscular Volume 84 fl (79-97); Platelet Count 398 K/mm3 (140-440); Red Blood Count 3.56 M/mm3 (3.65-5.03)
[2020-07-01 11:06] LABS: Red Cell Distribution Width 23.6 % (13.2-15.2)
[2020-07-01 11:54] VITALS: BP 166/111
[2020-07-01 12:11] LABS: Anisocytosis 2+; Total Cells Counted 100
[2020-07-01 12:13] LABS: Giant Platelets Rare; Platelet Estimate Consistent w Auto
[2020-07-01 12:16] LABS: Target Cells 1+
== END 2020-07-01 13:45 | disposition home or self-care (01) ==
LOC: ED 08:20
DX: D57.00 Hb-SS disease with crisis, unspecified (principal); I10 Essential (primary) hypertension; Z90.49 Acquired absence of other specified parts of digestive tract; Z79.899 Other long term (current) drug therapy; Z88.8 Allergy status to other drugs, medicaments and biological substances
CPT/HCPCS: 36415; 85007; 85025; 85045; 96361; 96374; 96375; 96376; 99283; J1170; J1200; J2405

== ENCOUNTER 2020-07-09 09:36 | Emergency (ER) | payer MEDICARE ==
[2020-07-09 09:41] VITALS: BP 153/105
== END 2020-07-09 13:11 | disposition left against medical advice (07) ==
LOC: ED 09:36
DX: D57.1 Sickle-cell disease without crisis (principal); Z53.21 Procedure and treatment not carried out due to patient leaving prior to being seen by health care provider

== ENCOUNTER 2021-10-08 08:19 | Emergency (ER) | payer MEDICARE ==
[2021-10-08 08:35] VITALS: BP 164/109
== END 2021-10-09 02:15 | disposition left against medical advice (07) ==
LOC: ED 08:19
DX: D57.1 Sickle-cell disease without crisis (principal); Z53.21 Procedure and treatment not carried out due to patient leaving prior to being seen by health care provider

== ENCOUNTER 2021-11-05 09:40 | Emergency (ER) | payer MEDICARE ==
--- NOTE | 2021-11-05 10:01 | Emergency Department Report ---
ED General Adult HPI - General Stated complaint: SICKLE CELL PAIN PUI?: No Source: patient Mode of arrival: Ambulatory Limitations: No Limitations - History of Present Illness Initial comments: 46 yo comes to ER with SS pain of her back and legs. 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 Beto JACOBO- at [facility] Specialist - Related Data Home Medications Medication Instructions Recorded Confirmed Last Taken Folic Acid [Folvite] 1 mg PO QDAY 10/28/15 12/05/17 10/11/16 Amlodipine Besylate [Norvasc] 10 mg PO DAILY 12/05/17 12/05/17 Unknown Morphine ER [Ms Contin ER] 30 mg PO BID 12/05/17 12/05/17 Unknown Previous Rx's Medication Instructions Recorded Last Taken Type Ondansetron [Zofran Odt] 4 mg PO QID PRN #20 tab.rapdis 07/12/16 10/11/16 Rx Oxycodone HCl/Acetaminophen 1 each PO Q6HR PRN #10 tablet 10/11/16 Unknown Rx [Percocet 10/325 mg] Clindamycin [Clindamycin CAP] 300 mg PO Q8H #15 cap 12/07/17 Unknown Rx Tramadol HCl [Ultram] 50 mg PO Q6HR PRN #15 tablet 01/23/18 Unknown Rx HYDROcodone/APAP 5-325 [[place] 1 each PO Q6HR PRN #10 tablet 10/03/19 Unknown Rx 5/325] Ketorolac [Toradol] 10 mg PO Q6H PRN #20 tablet 12/18/19 Unknown Rx HYDROcodone/APAP 5-325 [[place] 1 - 2 each PO Q6HR PRN #10 tablet 01/03/20 Unknown Rx 5/325] HYDROcodone/APAP 5-325 [[place] 1 each PO Q6HR PRN #14 tablet 06/17/20 Unknown Rx 5/325] HYDROcodone/APAP 5-325 [[place] 1 - 2 each PO Q6HR PRN #10 tablet 07/01/20 Unknown Rx 5/325] Allergies Allergy/AdvReac Type Severity Reaction Status Date / Time hydralazine [Hydralazine] Allergy Unknown Verified 07/09/20 09:37 hydroxyurea Allergy Unknown Verified 07/09/20 09:37 levofloxacin [From Levaquin] Allergy Unknown Verified 07/09/20 09:37 morphine Allergy Shortness Verified 07/09/20 09:37 of Breath nalbuphine HCl [From Nubain] Allergy Unknown Verified 07/09/20 09:37 sulfamethoxazole Allergy Unknown Verified 07/09/20 09:37 [From Bactrim] trimethoprim [From Bactrim] Allergy Unknown Verified 07/09/20 09:37 ED Review of Systems ROS: Stated complaint: SICKLE CELL PAIN Other details as noted in HPI Comment: All other systems reviewed and negative ED Past Medical Hx - Past Medical History Previous Medical History?: Yes Hx Hypertension: Yes (14 years old) Hx Congestive Heart Failure: No Hx Diabetes: No Hx Deep Vein Thrombosis: Yes Hx Pulmonary Embolism: Yes Hx Sickle Cell Disease: Yes (SC DZ) Hx Asthma: No Hx COPD: No Hx Tuberculosis: No Additional medical history: Sickle Cell - Surgical History Past Surgical History?: Yes Hx Cholecystectomy: Yes Additional Surgical History: x1,. port R chest, port right arm, PICC line inserted 06-22-2020 - Family History Family history: no significant - Social History Smoking Status: Never Smoker Substance Use Type: None - Medications Home Medications: Home Medications Medication Instructions Recorded Confirmed Last Taken Type Folic Acid [Folvite] 1 mg PO QDAY 10/28/15 12/05/17 10/11/16 History Ondansetron [Zofran Odt] 4 mg PO QID PRN #20 tab.rapdis 07/12/16 12/05/17 10/11/16 Rx Oxycodone HCl/Acetaminophen 1 each PO Q6HR PRN #10 tablet 10/11/16 12/05/17 Unknown Rx [Percocet 10/325 mg] Amlodipine Besylate [Norvasc] 10 mg PO DAILY 12/05/17 12/05/17 Unknown History Morphine ER [Ms Contin ER] 30 mg PO BID 12/05/17 12/05/17 Unknown History Clindamycin [Clindamycin CAP] 300 mg PO Q8H #15 cap 12/07/17 Unknown Rx Tramadol HCl [Ultram] 50 mg PO Q6HR PRN #15 tablet 01/23/18 Unknown Rx HYDROcodone/APAP 5-325 [[place] 1 each PO Q6HR PRN #10 tablet 10/03/19 Unknown Rx 5/325] Ketorolac [Toradol] 10 mg PO Q6H PRN #20 tablet 12/18/19 Unknown Rx HYDROcodone/APAP 5-325 [[place] 1 - 2 each PO Q6HR PRN #10 tablet 01/03/20 Unknown Rx 5/325] HYDROcodone/APAP 5-325 [[place] 1 each PO Q6HR PRN #14 tablet 06/17/20 Unknown Rx 5/325] HYDROcodone/APAP 5-325 [[place] 1 - 2 each PO Q6HR PRN #10 tablet 07/01/20 Unknown Rx 5/325] ED Physical Exam - General General appearance: alert, in no apparent distress - Head Head exam: Present: atraumatic, normocephalic - Eye Eye exam: Present: normal appearance - ENT ENT exam: Present: mucous membranes moist - Neck Neck exam: Present: normal inspection - Respiratory Respiratory exam: Present: normal lung sounds bilaterally. Absent: respiratory distress - Cardiovascular Cardiovascular Exam: Present: regular rate, normal rhythm. Absent: systolic murmur, diastolic murmur, rubs, gallop - GI/Abdominal GI/Abdominal exam: Present: soft, normal bowel sounds - Extremities Exam Extremities exam: Present: normal inspection - Back Exam Back exam: Present: normal inspection - Neurological Exam Neurological exam: Present: alert, oriented X3 - Psychiatric Psychiatric exam: Present: normal affect, normal mood - Skin Skin exam: Present: warm, dry, intact, normal color. Absent: rash Critical care attestation.: If time is entered above; I have spent that time in minutes in the direct care of this critically ill patient, excluding procedure time. ED Disposition Clinical Impression: Sickle cell anemia Disposition: 30 STILL A PATIENT Is pt being admited?: No Does the pt Need Aspirin: No Condition: Stable Time of Disposition: 10:01
[2021-11-05 11:17] LABS: Hematocrit 31.3 % (30.3-42.9); Hemoglobin 9.7 gm/dl (10.1-14.3); Mean Corpuscular HGB Conc 31 % (30-34); Mean Corpuscular Volume 73 fl (79-97); Platelet Count 414 K/mm3 (140-440); Red Blood Count 4.29 M/mm3 (3.65-5.03)
[2021-11-05 11:28] LABS: Alanine Aminotransferase 7 units/L (7-56); Albumin 4.4 g/dL (3.9-5); BUN/Creatinine Ratio 16; Blood Urea Nitrogen 18 mg/dL (7-17); Calcium 11.1 mg/dL (8.4-10.2); Hemolysis Index 8
[2021-11-05 11:55] LABS: Red Cell Distribution Width 31.3 % (13.2-15.2)
[2021-11-05] MEDS ORDERED: diphenhydrAMINE 50 MG/ML VIAL IV ONE (12:24)
[2021-11-05] MEDS ORDERED: HYDROmorphone 1 MG/1 ML INJ IV ONE (12:24)
--- NOTE | 2021-11-05 12:48 | Emergency Department Report ---
ED General Adult HPI - General Chief complaint: Pain General Stated complaint: SICKLE CELL PAIN PUI?: No Time Seen by Provider: 11/05/21 12:20 Source: patient Mode of arrival: Ambulatory Limitations: No Limitations - History of Present Illness Initial comments: sickle celll pain crisis , pain al over no feve rno SOB no chest pain , -: days(s) Location: back, abdomen Radiation: non-radiation Severity scale (0 -10): 5 Quality: aching Consistency: constant Improves with: none Worsens with: none Associated Symptoms: denies: denies other symptoms, confusion, chest pain, cough, diaphoresis Treatments Prior to Arrival: none - Related Data Home Medications Medication Instructions Recorded Confirmed Last Taken Folic Acid [Folvite] 1 mg PO QDAY 10/28/15 12/05/17 10/11/16 Amlodipine Besylate [Norvasc] 10 mg PO DAILY 12/05/17 12/05/17 Unknown Morphine ER [Ms Contin ER] 30 mg PO BID 12/05/17 12/05/17 Unknown Previous Rx's Medication Instructions Recorded Last Taken Type Ondansetron [Zofran Odt] 4 mg PO QID PRN #20 tab.rapdis 07/12/16 10/11/16 Rx Oxycodone HCl/Acetaminophen 1 each PO Q6HR PRN #10 tablet 10/11/16 Unknown Rx [Percocet 10/325 mg] Clindamycin [Clindamycin CAP] 300 mg PO Q8H #15 cap 12/07/17 Unknown Rx Tramadol HCl [Ultram] 50 mg PO Q6HR PRN #15 tablet 01/23/18 Unknown Rx HYDROcodone/APAP 5-325 [[place] 1 each PO Q6HR PRN #10 tablet 10/03/19 Unknown Rx 5/325] Ketorolac [Toradol] 10 mg PO Q6H PRN #20 tablet 12/18/19 Unknown Rx HYDROcodone/APAP 5-325 [[place] 1 - 2 each PO Q6HR PRN #10 tablet 01/03/20 Unknown Rx 5/325] HYDROcodone/APAP 5-325 [[place] 1 each PO Q6HR PRN #14 tablet 06/17/20 Unknown Rx 5/325] HYDROcodone/APAP 5-325 [[place] 1 - 2 each PO Q6HR PRN #10 tablet 07/01/20 Unknown Rx 5/325] Allergies Allergy/AdvReac Type Severity Reaction Status Date / Time hydralazine [Hydralazine] Allergy Unknown Verified 07/09/20 09:37 hydroxyurea Allergy Unknown Verified 07/09/20 09:37 levofloxacin [From Levaquin] Allergy Unknown Verified 07/09/20 09:37 morphine Allergy Shortness Verified 07/09/20 09:37 of Breath nalbuphine HCl [From Nubain] Allergy Unknown Verified 07/09/20 09:37 sulfamethoxazole Allergy Unknown Verified 07/09/20 09:37 [From Bactrim] trimethoprim [From Bactrim] Allergy Unknown Verified 07/09/20 09:37 ED Review of Systems ROS: Stated complaint: SICKLE CELL PAIN Other details as noted in HPI ED Past Medical Hx - Past Medical History Previous Medical History?: Yes Hx Hypertension: Yes (14 years old) Hx Congestive Heart Failure: No Hx Diabetes: No Hx Deep Vein Thrombosis: Yes Hx Pulmonary Embolism: Yes Hx Sickle Cell Disease: Yes (SC DZ) Hx Asthma: No Hx COPD: No Hx Tuberculosis: No Additional medical history: Sickle Cell - Surgical History Past Surgical History?: Yes Hx Cholecystectomy: Yes Additional Surgical History: x1,. port R chest, port right arm, PICC line inserted 06-22-2020 - Social History Smoking Status: Never Smoker Substance Use Type: None - Medications Home Medications: Home Medications Medication Instructions Recorded Confirmed Last Taken Type Folic Acid [Folvite] 1 mg PO QDAY 10/28/15 12/05/17 10/11/16 History Ondansetron [Zofran Odt] 4 mg PO QID PRN #20 tab.rapdis 07/12/16 12/05/17 10/11/16 Rx Oxycodone HCl/Acetaminophen 1 each PO Q6HR PRN #10 tablet 10/11/16 12/05/17 Unknown Rx [Percocet 10/325 mg] Amlodipine Besylate [Norvasc] 10 mg PO DAILY 12/05/17 12/05/17 Unknown History Morphine ER [Ms Contin ER] 30 mg PO BID 12/05/17 12/05/17 Unknown History Clindamycin [Clindamycin CAP] 300 mg PO Q8H #15 cap 12/07/17 Unknown Rx Tramadol HCl [Ultram] 50 mg PO Q6HR PRN #15 tablet 01/23/18 Unknown Rx HYDROcodone/APAP 5-325 [[place] 1 each PO Q6HR PRN #10 tablet 10/03/19 Unknown Rx 5/325] Ketorolac [Toradol] 10 mg PO Q6H PRN #20 tablet 12/18/19 Unknown Rx HYDROcodone/APAP 5-325 [[place] 1 - 2 each PO Q6HR PRN #10 tablet 01/03/20 Unknown Rx 5/325] HYDROcodone/APAP 5-325 [[place] 1 each PO Q6HR PRN #14 tablet 06/17/20 Unknown Rx 5/325] HYDROcodone/APAP 5-325 [[place] 1 - 2 each PO Q6HR PRN #10 tablet 07/01/20 Unknown Rx 5/325] ED Physical Exam - General Limitations: No Limitations General appearance: alert, in no apparent distress ED Medical Decision Making - Lab Data Result diagrams: 11/05/21 10:25 11/05/21 10:25 Critical care attestation.: If time is entered above; I have spent that time in minutes in the direct care of this critically ill patient, excluding procedure time. ED Disposition Clinical Impression: Sickle cell anemia, Sickle cell pain crisis, Narcotic dependence Disposition: 01 HOME / SELF CARE / HOMELESS Is pt being admited?: No Does the pt Need Aspirin: No Condition: Stable Instructions: Opioid Pain Medicine Management Referrals: MED BURT MD [Primary Care Provider] - 3-5 Days
[2021-11-05 14:34] VITALS: BP 178/102
== END 2021-11-05 14:36 | disposition home or self-care (01) ==
LOC: ED 09:40
DX: D57.1 Sickle-cell disease without crisis (principal); Z88.8 Allergy status to other drugs, medicaments and biological substances; Z88.2 Allergy status to sulfonamides; I10 Essential (primary) hypertension
CPT/HCPCS: 36415; 80053; 85027; 85045; 96374; 96375; 99283; J1170; J1200